=== PATIENT | male | born 1980 | race Caucasian/White ===

== ENCOUNTER 2019-08-30 16:36 | Emergency (ER) | payer BC, SELFPAY ==
[2019-08-30 16:54] VITALS: BP 152/97; PULSE 87; RESP 16; TEMP 37.3; O2SAT 99
--- NOTE | 2019-08-30 17:05 | ED.URI ---
HPI - URI/Sore Throat General Chief Complaint: Upper Respiratory Infection Stated Complaint: Difficulty breathing Time Seen by Provider: 08/30/19 17:06 Source: patient Mode of arrival: ambulatory Limitations: no limitations History of Present Illness HPI Narrative: Antwan Will is a 39 yo male with no PMH who started to have dry cough and mild wheezing on THurs, low grade temperature last 24 hours Related Data Home Medications Medication Instructions Recorded Confirmed esomeprazole magnesium [Nexium] 40 mg PO DAILY 08/30/19 08/30/19 Allergies Allergy/AdvReac Type Severity Reaction Status Date / Time No Known Allergies Allergy Verified 01/30/14 14:09 Review of Systems Review of Systems: Narrative: CONSTITUTIONAL: Denies fever, chills, sweats. EYES: Denies visual changes, redness, discharge. ENT: Denies rhinorrhea, congestion, sore throat, otalgia. CARDIOVASCULAR: Denies chest pain, palpitations, edema. RESPIRATORY: Denies dyspnea, has wheezing, dry cough GASTROINTESTINAL: Denies abdominal pain, nausea, vomiting, diarrhea. GENITOURINARY: Denies dysuria, hematuria, abnormal discharge SKIN: Denies rash or itching. NEUROLOGIC: Denies numbness, or focal weakness. PSYCHIATRIC: Denies anxiety or depression. [facility] Family History Family History Other Diabetes mellitus Social History Social History (Updated 08/30/19 @ 17:15 by Nicole Gandhi CNP) Social History: Has tried to quit smoking of the last few months and is down to 2 to 3 cigarettes a day Smoking packs per day: 0.1 Smoking cigarettes per day: 2.0 Smoking status: Current every day smoker Tobacco type: cigarettes Alcohol intake: current Comments At time of signature, I agree with nursing past medical, surgical, social and family history. There is no relevant family history pertinent to the presenting complaint. Exam Narrative: Exam Narrative: GENERAL: This is a well-nourished, well-developed patient, in mild distress. HEAD: normocephalic, atraumatic. EYES: . Sclera clear/white. Vision is grossly intact. EARS: External ears normal, auditory canals clear and without drainage, TMs normal without perforation. Hearing grossly intact. NOSE: External nose normal with mild nasal discharge, nares with redness, no rhinorrhea. THROAT: Mucous membranes moist, posterior pharynx erythema NECK: Neck supple, non-tender CARDIOVASCULAR: Regular rate and rhythm without murmurs, gallops, or rubs. RESPIRATORY: Clear to auscultation. Breath sounds equal bilaterally. No wheezes, rales, or rhonchi. GASTROINTESTINAL: Abdomen soft, non-tender, SKIN: warm, intact with no suspicious lesions or rash, good texture and turgor. NEURO: awake, alert, and oriented to person, place and time. There were no obvious focal neurologic abnormalities. Steady gait EXTREMITIES: Normal range of motion. BACK: Nontender without deformity or crepitance. . Course Course Emergency Course: Started on Z-Gómez, prednisone, codeine cough syrup-she historically gets this every year Vital Signs Vital signs: Vital Signs Temperature 99.2 F 08/30/19 16:54 Pulse Rate 87 08/30/19 16:54 Respiratory Rate 16 08/30/19 16:54 Blood Pressure 152/97 H 08/30/19 16:54 Pulse Oximetry 99 08/30/19 16:54 Temperature 99.2 F 08/30/19 16:54 Pulse Rate 87 08/30/19 16:54 Respiratory Rate 16 08/30/19 16:54 Blood Pressure 152/97 H 08/30/19 16:54 Pulse Oximetry 99 08/30/19 16:54 MDM - URI/Sore Throat Differential Diagnosis Differential diagnosis: Likely upper respiratory infection, sinusitis, viral infection, bronchitis and pharyngitis Discharge Plan Discharge Clinical Impression: Bronchitis Patient Disposition: Home, Self-Care Condition: Stable Instructions: Antibiotic Form, Acute Bronchitis (ED) Prescriptions: New prednisone 20 mg tablet 40 mg PO DAILY 5 Days Qty: 10 RF: 0 azith
== END 2019-08-30 17:23 | disposition home or self-care (01) ==
PROVIDERS: Emergency Provider Nurse Practitioner; PCP Family Medicine
DX: J40 Bronchitis, not specified as acute or chronic (principal); F17.210 Nicotine dependence, cigarettes, uncomplicated; K22.70 Barrett's esophagus without dysplasia; K21.9 Gastro-esophageal reflux disease without esophagitis; G54.0 Brachial plexus disorders
CPT/HCPCS: 99213; G0463

== ENCOUNTER → 2019-12-06 13:58 | Outpatient (CLI) | payer BC, SELFPAY ==
--- NOTE | ~2019-12-06 | XR_ITS ---
XR hand RT min 3V 12/06/2019 14:19 Indication: Right fifth finger injury Procedure: 3 views right hand Comparison: 05/22/2012 Findings: Osteopenia. Mild polyarticular osteoarthritis. No acute fracture or traumatic malalignment. No focal soft tissue abnormality. No radiopaque foreign bodies. Impression: 1: No acute fracture. Reviewed, dictated and finalized at location A. Impression: 1: No acute fracture.
--- NOTE | ~2019-12-06 | XR_ITS ---
EXAMINATION: XR chest 2V 12/06/2019 14:18 INDICATION: Tobacco use. PROCEDURE: 2 view chest COMPARISON: Comparison to multiple prior studies sequentially, with oldest reviewed study dated 01/14/2004. FINDINGS: The lungs are clear. The cardiomediastinal silhouette is within normal limits. There are no pleural effusions. There is no pneumothorax suspected. Chronic sclerotic lesion of the left fift h rib unchanged. IMPRESSION: 1: NO ACUTE CARDIOPULMONARY DISEASE. Reviewed, dictated and finalized at location A.
== END ==
PROVIDERS: PCP Emergency Medicine; Visit Provider Emergency Medicine
DX: S69.91XA Unspecified injury of right wrist, hand and finger(s), initial encounter (principal)
CPT/HCPCS: 71046; 73130

== ENCOUNTER 2020-09-10 05:55 | Observation (INO) | payer BC, SELFPAY ==
[2020-09-10] VITALS (17 sets, daily range): BP systolic 124–154; BP diastolic 72–101; PULSE 77–103; RESP 16–26; TEMP 36.4–36.7; O2SAT 98–100
--- NOTE | ~2020-09-10 | XR_ITS ---
XR chest 1V portable DATE: 09/10/2020 06:24 INDICATION: Postoperative chest pain TECHNIQUE: Portable upright AP chest on 09/10/2020 at 0625 hours COMPARISON: 12/06/2019 2 view chest FINDINGS: Normal heart size. No hilar or mediastinal enlargement. There is asymmetric increased density overlying the right upper lung compared to the left which may i ndicate infiltrate; however, there is some rotation of patient which might simulate infiltrate. Repea t PA and lateral views are recommended when possible. The lungs otherwise appear clear. Chronic blunting of the right costophrenic angle, stable since 12/06/2019. IMPRESSION: Increased density overlying right upper lung which may be due to infiltrate or possibly r esult of patient rotation; PA and lateral chest radiographs are recommended for more optimal evaluati on Reviewed, dictated and finalized at location A. IMPRESSION: Increased density overlying right upper lung which may be due to in filtrate or possibly result of patient rotation; PA and lateral chest radiograp hs are recommended for more optimal evaluation
--- NOTE | ~2020-09-10 | CT_ITS ---
EXAMINATION: CTA chest PE protocol DATE: 09/10/2020 07:16 INDICATION: Chest pain. 4 weeks postoperative from thoracic outlet surgery. TECHNIQUE: Computed tomography angiography (CTA) of the chest was performed with 100 mL Omnipaque-350 intravenous contrast timed to evaluate the pulmonary arteries. Coronal maximum intensity projection 3D-reconstructions were created by the technologist. Automated exposure control and iterative reconst ruction technique were employed. Exam dose: 426.86 mGy-cm total exam DLP. COMPARISON: 09/10/2020 portable AP chest FINDINGS: There is diagnostic contrast enhancement of the pulmonary arteries and no evidence of pulmo nary embolism. No thoracic aortic aneurysm or dissection. No hilar or mediastinal mass lesion or lymphadenopathy. No pulmonary infiltrate or consolidation or pulmonary mass lesion is detected. Normal morphology of the adrenal glands. Small sliding hiatal hernia. IMPRESSION: No evidence of pulmonary embolism Reviewed, dictated and finalized at Location A. Reviewed, dictated and finalized at location A.
--- NOTE | 2020-09-10 06:06 | ECG_ITS ---
Measurements Intervals [place] Rate: 92 P: 76 IA: 149 QRS: 51 QRSD: 91 T: 76 QT: 339 QTc: 420 Interpretive Statements SINUS RHYTHM NORMAL ECG Electronically Signed On 09-10-2020 6:42:29 CDT by Vitor Santos D.O.
[2020-09-10 06:14] LABS: Basophils Absolute Auto 0.1 K/mm3 (0.0-0.1); Basophils Percent Auto 0.6 % (0.2-1.2); Eosinophils Absolute Auto 0.1 K/mm3 (0-0.3); Eosinophils Percent Auto 0.7 % (0-4.4); Hematocrit 44.8 % (42.0-52.0); Hemoglobin 14.6 g/dL (14.0-18.0); Immature Granulocyte Absolute 0.04 K/mm3 (0.00-0.031); Immature Granulocyte Percent A 0.3 % (0-0.5); Lymphocytes Absolute Auto 3.48 K/mm3 (0.9-3.2); Lymphocytes Percent Auto 26.7 % (18.3-44.2); Mean Corpuscular HGB Conc 32.6 g/dl (32-36); Mean Corpuscular Hemoglobin 28.2 pg (26-34); Mean Corpuscular Volume 86.5 fl (80-100); Mean Platelet Volume 9.1 fl (7.4-10.4); Monocytes Absolute Auto 0.8 K/mm3 (0.1-0.6); Neutrophils Absolute Auto 8.6 K/mm3 (1.3-6.7); Neutrophils Percent Auto 65.7 % (45.5-73.1); Platelet Count Result 335 k/mm3 (150-375); Red Blood Count 5.18 M/mm3 (4.6-6.20); Red Cell Distribution Width 14.5 % (11.5-14.5); White Blood Count 13.1 K/mm3 (4.5-10.0)
[2020-09-10 06:28] LABS: Alanine Aminotransferase 17 U/L (4-50); Albumin Level 4.8 g/dL (3.5-5.1); Alkaline Phosphatase 92 U/L (38-126); Anion Gap 9 mmol/L (8-16); Aspartate Amino Transferase 22 U/L (17-59); Bilirubin,Total 0.2 mg/dL (0.2-1.3); Blood Urea Nitrogen 11 mg/dL (9-20); Calcium 9.7 mg/dL (8.4-10.2); Carbon Dioxide 29 mmol/L (22-30); Chloride 101 mmol/L (98-107); Estimated CRCL calculation 103 ml/min; Estimated Glomerular Filt Rate > 60; Glucose 125 mg/dL (75-110); Potassium 3.8 mmol/L (3.4-5.0); Sodium 139 mmol/L (137-145)
--- NOTE | 2020-09-10 06:28 | ED.GENADULT ---
HPI - General Adult General Chief complaint: Chest Pain <Jeremiah Kaminski MD - Last Filed: 09/10/20 06:49> Stated complaint: Chest pain <Jeremiah Kaminski MD - Last Filed: 09/10/20 06:49> Time Seen by Provider: 09/10/20 06:28 <Jeremiah Kaminski MD - Last Filed: 09/10/20 06:49> History of Present Illness HPI narrative: Patient is a 40-year-old gentleman who presents the emergency department with chief complaint of chest discomfort. Patient reports he had recent surgery on his chest for thoracic outlet syndrome patient states that he started having kind of discomfortable feeling in his mid chest and reports he was comfortable strange sensation. Patient states that he has no prior history of heart disease states that he took some aspirin prior to arrival in the emergency department. Patient does report that he smokes cigarettes and is on any antihypertensives. Patient reports been several years since he last had a stress test. <Jeremiah Kaminski MD - Last Filed: 09/10/20 06:49> Related Data Home medications: Home Medications Medication Instructions Recorded Confirmed esomeprazole magnesium [Nexium] 40 mg PO DAILY 08/30/19 08/30/19 <Jeremiah Kaminski MD - Last Filed: 09/10/20 06:49> Allergies/adverse reactions: Allergies Allergy/AdvReac Type Severity Reaction Status Date / Time No Known Allergies Allergy Verified 09/10/20 05:56 <Jeremiah Kaminski MD - Last Filed: 09/10/20 06:49> Review of Systems Review of Systems: Narrative: A 10 system review of systems was completed on the patient and is negative except for what is stated in the HPI. Nursing and ancillary documentation was reviewed. <Jeremiah Kaminski MD - Last Filed: 09/10/20 06:49> [facility] Family History Family History: Family History Other Diabetes mellitus <Jeremiah Kaminski MD - Last Filed: 09/10/20 06:49> Social History Social History: Social History (Updated 08/30/19 @ 17:15 by Nicole Gandhi CNP) Social History: Has tried to quit smoking of the last few months and is down to 2 to 3 cigarettes a day Smoking packs per day: 0.1 Smoking cigarettes per day: 2.0 Smoking status: Current every day smoker Tobacco type: cigarettes Alcohol intake: current <Jeremiah Kaminski MD - Last Filed: 09/10/20 06:49> Comments Past medical history significant for hypertension Surgical history of thoracic outlet syndrome surgery Social history patient smokes cigarettes <Jeremiah Kaminski MD - Last Filed: 09/10/20 06:49> Exam Narrative: Exam Narrative: GENERAL: Well-appearing, well-nourished, and in no acute distress. HEAD: Normocephalic, atraumatic. EYES: PERRLA and EOMI. ENT: Nares clear, no rhinorrhea or epistaxis. Mucous membranes moist. NECK: Supple. CHEST: Clear to auscultation. No respiratory distress. HEART: Regular rate and rhythm. No murmur heard. Normal peripheral pulses. ABDOMEN: Soft, nontender, nondistended, normal active bowel sounds. EXTREMITIES: Normal range of motion. No edema. SKIN: Warm, dry, no rash. NEURO: No focal deficits. Alert and oriented x3. PSYCH: Normal mood and affect. <Jeremiah Kaminski MD - Last Filed: 09/10/20 06:49> Course Course Emergency Course: Normal sinus rhythm rate of [address] elevation or ST depression present on EKG <Jeremiah Kaminski MD - Last Filed: 09/10/20 06:49> Care turned over to myself at shift change seen by myself agrees initial H&P patient had left-sided chest pressure this morning resolved with nitroglycerin. Recent history of thoracic outlet syndrome history of hypertension and tobacco use Discussed Dr. Ricks presentation work-up agrees with admission at this time Discussed with patient and family results of workup and diagnosis. Discussed need for admission. Patient and fa
[2020-09-10 06:40] LABS: Troponin I < 0.012 ng/mL (0.000-0.034)
[2020-09-10] MEDS: NITROGLYCERIN SL 0.4 MG TABLET SUBLINGUAL (06:43)
[2020-09-10 08:35] LABS: Cholesterol 237 mg/dL (0-200); HDL Direct 35 mg/dL; Triglycerides 199 mg/dL (<150)
[2020-09-10] MEDS: ASPIRIN 81 MG CHEWABLE TABLET 324 MG PO (08:43)
[2020-09-10 08:46] LABS: LDL Cholesterol Direct 167 mg/dL
[2020-09-10 10:26] LABS: Troponin I < 0.012 ng/mL (0.000-0.034)
--- NOTE | 2020-09-10 11:14 | ECG_ITS ---
Measurements Intervals [place] Rate: 69 P: 62 NV: 156 QRS: 44 QRSD: 98 T: 67 QT: 379 QTc: 407 Interpretive Statements SINUS RHYTHM ST ELEVATION IN ANT/INF LEADS- PROBABLY EARLY REPOLARIZATION BORDERLINE ECG Electronically Signed On 09-10-2020 12:21:23 CDT by Vitor Santos D.O.
[2020-09-10 12:32] LABS: Troponin I < 0.012 ng/mL (0.000-0.034)
--- NOTE | 2020-09-10 14:28 | PM.IMHP ---
H&P: HPI History of Present Illness Date/Time: 09/10/20 14:28 Chief Complaint: This is a 40-year-old man without any previous cardiac history who is referred here today by the emergency room as a chest Pain Center patient to rule out acute coronary syndrome. Patient states that he has been having symptoms of the sense of some tightness up in the region of his left shoulder, left clavicle and left side of his neck for the last 1-2 weeks after recent surgery to treat thoracic outlet syndrome. The patient provides a remarkable history of 8 previous operations both on the left than the right side for treating thoracic outlet syndrome. Apparently he redevelops scar tissue and has to have repeated operations. All the surgeries are done by the vascular surgery consult consultants at [facility]. He has never had a cardiac problem in the past he normally a is a reasonably active man with sustained walking or aerobic activity he does not trigger any chest pain pressure or heaviness he does not have any orthopnea PND or edema or sense of palpitations or syncope. He came to the emergency room with these symptoms this morning his electrocardiograms were done on 2 tracings both which are normal. He was admitted to the chest Pain Center where he has had 3-troponin levels sample. Very comfortable appearing man in room 6. In the chest Pain Center and offers no other history. He does have chronic hypertension as well. For which he takes PRANAV-inhibitor. Narrative: As above Review of Systems Constitutional: Constitutional: Reports no additional constitutional complaints Eyes: Eyes: Reports no additional eye complaints ENT: Reports system reviewed and no additional complaints, except as documented Cardiovascular: Cardiovascular: Reports as per HPI Respiratory: Respiratory: Reports no additional respiratory complaints Gastrointestinal: Gastrointestinal: Reports no additional gastrointestinal complaints Musculoskeletal: Musculoskeletal: Reports as per HPI Neurologic: Reports as per HPI Comments: Patient has chronic peripheral nerve dysfunction in the right upper extremity following thoracic outlet surgery, complicated by nerve injury in 2015 [facility] Family History Family History Other Diabetes mellitus Social History Social History (Updated 08/30/19 @ 17:15 by Nicole Gandhi CNP) Social History: Has tried to quit smoking of the last few months and is down to 2 to 3 cigarettes a day Smoking packs per day: 0.9 Smoking cigarettes per day: 18.0 Smoking status: Current every day smoker Tobacco type: cigarettes Alcohol intake: current Drinks per week: 6 Alcohol use details: 5-6 beers once a week on saturdays Substance use: never Substance use type: does not use Living arrangements: with family Gender identity (if verbalized by the patient): Male Spiritual care concerns: No Meds Home Medications and Allergies Home Medications Medication Instructions Recorded Confirmed Type esomeprazole magnesium [Nexium] 40 mg PO DAILY 08/30/19 09/10/20 History ibuprofen 600 mg PO TID 09/10/20 09/10/20 History lisinopril 10 mg PO DAILY 09/10/20 09/10/20 History methocarbamol 500 mg PO BID 09/10/20 09/10/20 History Allergies Allergy/AdvReac Type Severity Reaction Status Date / Time No Known Allergies Allergy Verified 09/10/20 05:56 Vital Signs Vital Signs - 24 hr 09/10/20 06:02 09/10/20 06:05 09/10/20 06:06 Temperature 36.4 C Pulse Rate 93 93 92 Respiratory Rate 16 19 17 Blood Pressure 143/86 H 148/97 H Pulse Oximetry 98 09/10/20 06:15 09/10/20 06:16 09/10/20 06:30 Temperature Pulse Rate 93 97 92 Respiratory Rate 18 20 21 H Blood Pressure 136/100 H Pulse Oximetry 09/10/20 06:31 09/10/20 06:45 09/10/20 06:46 Temperature Pulse Rate 94 101 H 103 H Respiratory Rate 21 H 23 H 26 H Blood Pressure 139/101 H 124/89 P
--- NOTE | 2020-09-10 15:13 | PC.NURSE ---
Pt. and spouse given discharge education following [facility] admission. Pt. and spouse verbalize understanding of discharge education. Pt. denies chest pain upon departure. Pt. and spouse escorted to exit in no apparent distress.
== END 2020-09-10 15:14 | disposition home or self-care (01) ==
LOC: ANHED 07:04 → ANHCPC 08:23
PROVIDERS: Emergency Medicine; Admitting Provider Specialist; Emergency Provider Emergency Medicine; PCP Emergency Medicine; Visit Provider Specialist
DX: R07.89 Other chest pain (principal); F17.210 Nicotine dependence, cigarettes, uncomplicated; M25.512 Pain in left shoulder
CPT/HCPCS: 36415; 71045; 71275; 80053; 80061; 84484; 85025; 93005; 99285; A9270; G0378; G0379; Q9967

== ENCOUNTER 2021-01-13 11:20 | Observation (INO) | payer MEDICARE, MEDICAID, SELFPAY ==
--- NOTE | 2021-01-13 | ECHO_ITS ---
Patient Info Name: Antwan Will Age: 40 years : 1980 Gender: Male Ht: 72 in Wt: 189 lbs BSA: 2.10 m2 HR: 65 bpm BP: 140 / 81 mmHg Heart Rhythm: Sinus Rhythm Technical Quality: Good Exam Date: 01/13/2021 4:30 PM Exam Location: [facility] Pulmonary Exam Room: ER Patient Status: Emergency Admit Date: 01/13/2021 Staff Ordering Physician: Leigha Giron Licensed Aircraft Maintenance Engineer: Cristiane Roberts RDCS Attending Provider: Natali Bridges MD Referring Physician: Mack DUNN; Exam Type: CA echo doppler color flow Study Info Indications - ASSESS EF Complete two-dimensional, color flow and Doppler transthoracic echocardiogram is performed. Summary 1. Complete two-dimensional, color flow and Doppler transthoracic echocardiogram is performed. 2. Left ventricular chamber size, wall thickness, systolic and diastolic function are normal with no regional wall motion abnormalities with an estimated ejection fraction of 60-65%. 3. No significant valve disease. 4. Normal sinus rhythm. Left Ventricle Left ventricular chamber dimension is normal. Left ventricular systolic function is normal, estimated at 60-65%. There is no increased left ventricular wall thickness. Left ventricular septal wall motion is normal. The left ventricular diastolic function is normal. Global longitudinal strain is normal at -18 %. Left ventricular chamber size, wall thickness, systolic and diastolic function are normal with no regional wall motion abnormalities with an estimated ejection fraction of 60-65%. Right Ventricle Right ventricular chamber dimension is normal. Right ventricular systolic function is normal. Left Atria Left atrial chamber dimension is normal. Right Atria Right atrial chamber dimension is normal. Aortic Valve The aortic valve is trileaflet. There is no aortic valve sclerosis. There is no aortic valve stenosis. There is no aortic valve regurgitation. Pulmonic Valve The pulmonic valve is normal. There is no pulmonic valve stenosis. There is no pulmonic regurgitation. Mitral Valve The mitral valve has normal leaflets. There is no mitral valve stenosis. There is no mitral valve regurgitation. Tricuspid Valve The tricuspid valve leaflets are normal. There is no significant tricuspid valve stenosis. There is trace tricuspid valve regurgitation. No pulmonary hypertension, estimated pulmonary arterial systolic pressure is Empty. Pericardium/Pleural The pericardium appears normal. There is no pericardial effusion. Inferior Vena Cava Normal inferior vena cava with >50% collapse upon inspiration consistent with Empty right atrial pressure, Empty. Aorta The aortic root size at the sinus of Valsalva is normal. The prox ascending aorta size is normal. Left Ventricular Outflow Tract Name Value Normal LVOT 2D LVOT Diameter 2.0 cm LVOT Doppler LVOT Peak Gradient 6 mmHg LVOT Mean Gradient 3 mmHg LVOT VTI 25 cm LVOT VTI/AV VTI Ratio 0.9
--- NOTE | ~2021-01-13 | CT_ITS ---
EXAMINATION: CT BRAIN W/O DATE: 01/13/2021 11:41 INDICATION: Headache. Slurred speech. TECHNIQUE: Computed tomography (CT) of the head was performed without intravenous contrast. The dose- length product was 681.00 mGy-cm. Automated exposure control and iterative reconstruction technique w ere employed. COMPARISON: No prior studies for comparison. FINDINGS: Normal brain parenchymal volume for age. Normal mendez-white differentiation. No acute intrac ranial hemorrhage, infarction, mass or mass effect. No ventriculomegaly or midline shift. Midline sagittal images demonstrate a normal corpus callosum, c raniovertebral junction and sella turcica. Basilar cisterns are patent. Paranasal sinuses and mastoids are pneumatized. No depressed skull fractures. IMPRESSION: 1. No acute intracranial abnormality. Reviewed, dictated and finalized at location A.
--- NOTE | ~2021-01-13 | XR_ITS ---
EXAMINATION: XR chest 1V portable 01/13/2021 11:50 INDICATION: Transient alteration of awareness. PROCEDURE: AP portable chest COMPARISON: Comparison to multiple prior studies sequentially, with oldest reviewed study dated 01/13. FINDINGS: The lungs are clear. The cardiomediastinal silhouette is within normal limits. There are no pleural effusions. There is no pneumothorax suspected. Chronic blunting right lateral costophren ic recess. IMPRESSION: 1: NO ACUTE CARDIOPULMONARY DISEASE. Reviewed, dictated and finalized at location A.
--- NOTE | ~2021-01-13 | MR_ITS ---
EXAMINATION: MR brain/brain stem wo/w con EXAM DATE: 01/14/2021 08:52 INDICATION: Aphasia. Slurred speech. Left-sided headache. TECHNIQUE: Magnetic resonance imaging (MRI) of the brain/brain stem obtained without contrast. Sagit sheri T1, axial diffusion, gradient echo (T2*), T1, T2, FLAIR sequences obtained. Patient was then inj ected with 17 cc intravenous Multihance contrast. Axial and coronal postcontrast T1 weighted sequence s obtained. Comparison is made to prior examination from 10/19/2011. Correlation was made with head CT 01/13/2021. FINDINGS: A few nonspecific white matter hyperintensities within normal limits for patient's age. The re are no areas of restricted diffusion to suggest acute infarction. There is no acute hemorrhage se en on the T2*, a hemosiderin sensitive sequence. No intraparenchymal brain mass. The ventricles are normal in size. There are no extra-axial collections. Flow voids are seen in the cerebral arteries on the T2-weighted sequences consistent with their expected patency. The orbits are unremarkable. S oft tissue is unremarkable. IMPRESSION: 1. No acute intracranial findings. Reviewed, dictated and finalized at location D.
--- NOTE | ~2021-01-13 | US_ITS ---
EXAMINATION: US carotid duplex BI DATE: 01/13/2021 15:13 INDICATION: Aphasia. TECHNIQUE: Grayscale, color Doppler, and pulsed Doppler images of the cervical carotid arteries were obtained. The degree of vessel stenosis is placed in one of the following categories: normal, <50%, 5 0-69%, >=70% but less than near-occlusion, near-occlusion, or total occlusion. Note that percent sten osis relative to normal distal artery lumen diameter is indirectly measured from velocity measurement s as described by Ernst, et al. Radiology 2003; 229:340-346. COMPARISON: None. FINDINGS: RIGHT: The right common carotid artery (CCA) peak systolic velocity (PSV) is 96 cm/s. The right internal car otid artery (ICA) PSV is 75 cm/s. The right ICA end-diastolic velocity (EDV) is 33 cm/s. The right IC A/CCA PSV ratio is 0.8. Grayscale and color Doppler images yield an estimate of <50% diameter reducti on from plaque in the ICA. The external carotid artery (ECA) PSV is 123 cm/s. There is antegrade flow in the right vertebral artery. LEFT: The left CCA PSV is 90 cm/s. The left ICA PSV is 75 cm/s. The left ICA EDV is 15 cm/s. The left ICA/C CA PSV ratio is 0.8. Grayscale and color Doppler images yield an estimate of <50% diameter reduction from plaque in the ICA. The ECA PSV is 101 cm/s. There is antegrade flow in the left vertebral artery . IMPRESSION: 1. <50% stenosis from minimal plaque in the right internal carotid artery. 2. <50% stenosis from minimal plaque in the left internal carotid artery. Reviewed, dictated and finalized at location A.
[2021-01-13 11:21] VITALS: BP 148/71; PULSE 89; RESP 17; TEMP 36.7; O2SAT 100
--- NOTE | 2021-01-13 11:27 | ECG_ITS ---
Measurements Intervals [place] Rate: 87 P: 72 CA: 150 QRS: 57 QRSD: 90 T: 89 QT: 342 QTc: 413 Interpretive Statements SINUS RHYTHM BASELINE ARTIFACT- I, III, AVR, AVL NORMAL ECG Electronically Signed On 01-13-2021 12:04:37 CDT by Vitor Santos D.O.
[2021-01-13 11:31] VITALS: BP 140/81; PULSE 86; RESP 15; O2SAT 100
[2021-01-13 11:32] LABS: Glucose Point of Care 105 mg/dl (65-105)
[2021-01-13 11:41] LABS: Basophils Absolute Auto 0.1 K/mm3 (0.0-0.1); Basophils Percent Auto 0.8 % (0.2-1.2); Eosinophils Absolute Auto 0.1 K/mm3 (0-0.3); Eosinophils Percent Auto 0.9 % (0-4.4); Hematocrit 44.9 % (42.0-52.0); Hemoglobin 14.5 g/dL (14.0-18.0); Immature Granulocyte Absolute 0.05 K/mm3 (0.00-0.031); Immature Granulocyte Percent A 0.4 % (0-0.5); Lymphocytes Percent Auto 31.8 % (18.3-44.2); Mean Corpuscular HGB Conc 32.3 g/dl (32-36); Mean Corpuscular Hemoglobin 28.4 pg (26-34); Mean Corpuscular Volume 87.9 fl (80-100); Mean Platelet Volume 8.7 fl (7.4-10.4); Monocytes Absolute Auto 1.2 K/mm3 (0.1-0.6); Monocytes Percent Auto 9.4 % (2.6-8.5); Neutrophils Absolute Auto 6.9 K/mm3 (1.3-6.7); Neutrophils Percent Auto 56.7 % (45.5-73.1); Platelet Count Result 350 k/mm3 (150-375); Red Blood Count 5.11 M/mm3 (4.6-6.20); Red Cell Distribution Width 13.9 % (11.5-14.5); White Blood Count 12.3 K/mm3 (4.5-10.0)
[2021-01-13 11:52] LABS: INR 0.9; Prothrombin Time 12.4 Seconds (11.1-14.7)
[2021-01-13 11:53] LABS: Anion Gap 11 mmol/L (8-16); Blood Urea Nitrogen 13 mg/dL (9-20); Carbon Dioxide 27 mmol/L (22-30); Chloride 100 mmol/L (98-107); Estimated CRCL calculation 93 ml/min; Estimated Glomerular Filt Rate > 60; Glucose 83 mg/dL (65-110); Partial Thromboplastin Time 23.8 SECONDS (22.3-36.8); Potassium 3.7 mmol/L (3.4-5.0); Sodium 138 mmol/L (137-145)
[2021-01-13 12:05] LABS: Troponin I < 0.012 ng/mL (0.000-0.034)
--- NOTE | 2021-01-13 13:54 | ED.NEUROSD ---
HPI - Neuro Symptoms/Deficit General Chief Complaint: Neuro Symptoms/Deficit Stated Complaint: MICHAEL, slurred speech since 0200 Time Seen by Provider: 01/13/21 11:38 Source: patient Mode of arrival: ambulatory Limitations: no limitations History of Present Illness HPI Narrative: This is a 40 year old male who presents for evaluation of difficulty speaking. Patient states he woke up at 2 am this morning with left frontal headache. He also reports he had difficulty speaking . He was having trouble getting words out. His symptoms lasted for 1-2 days. He reports chronic right arm paralysis due to history of thoracic outlet syndrome and he also reports chronic paresthesia to both hands chronically. He denies any worsening weakness or numbness. He denies blurred vision. He also denies history of TIA or CVA. Related Data Home Medications Medication Instructions Recorded Confirmed lisinopril 10 mg PO DAILY 09/10/20 01/13/21 simvastatin 20 mg HS 01/13/21 01/13/21 Allergies Allergy/AdvReac Type Severity Reaction Status Date / Time ciprofloxacin Allergy Swelling Verified 01/13/21 17:55 of Lip/Tongue/Throat Latex, Natural Rubber AdvReac Rash Verified 01/13/21 17:55 Review of Systems Review of Systems: All systems reviewed & are unremarkable except as noted in HPI and below PMFSH Past Medical History Medical History (Updated 01/13/21 @ 19:22 by Natali Bridges MD) H/O thoracic outlet syndrome Thoracic outlet syndrome Surgical History Surgical History (Updated 01/13/21 @ 14:01 by Natali Bridges MD) History of thoracic surgery Family History Family History (Updated 01/13/21 @ 18:08 by Komal Graham RN) Mother Diabetes mellitus Heart problem Father Alzheimer's dementia Social History Social History (Updated 08/30/19 @ 17:15 by Nicole Gandhi CNP) Social History: Has tried to quit smoking of the last few months and is down to 2 to 3 cigarettes a day Smoking packs per day: 0.9 Smoking cigarettes per day: 18.0 Years smoked: 20 Smoking pack-years: 18.00 Smoking status: Current every day smoker Tobacco type: cigarettes Alcohol intake: current Drinks per week: 6 Alcohol use details: 5-6 beers once a week on saturdays Substance use: never Substance use type: does not use Spiritual care concerns: No Exam Const: General: no acute distress and alert Orientation/consciousness: patient oriented x3 HENMT: Head: normocephalic and atraumatic Face and sinus: normal facial exam, sinuses nontender and face symmetric Mouth: Yes Normal oral and palatal mucosa present, Yes lip normal, Yes oropharynx normal and Yes moist mucous membranes Eyes: Pupils: Equal, round and reactive pupils present EOM: EOMs intact bilaterally Chest: Chest palpation & inspection: normal inspection of the chest Resp: Effort & Inspection: normal respiratory effort and no retractions Auscultation: clear to auscultation bilaterally Cardio: Rate: regular rate Rhythm: regular rhythm Heart sounds: no murmurs GI: GI Palp: Yes Soft to palpation, No Tenderness to palpation present (GI) and No Guarding due to palpation present (GI) Auscultation: normal bowel sounds Neuro: General: patient oriented x3, moves all extremities, no meningeal signs and CN's II-XI intact bilaterally Speech: normal speech Gait exam (Neuro): Normal gait present Other: right hand with contractures, no arm drip Extrem: General: no pedal edema Psych: Mental Status: mental status grossly normal Affect: normal affect Course Reevaluation(s) Reevaluation #1: I discussed with patient plan to admit for MRI . HE agrees .He reports chronic leukocytosis Date: 01/13/21 Time: 13:30 Consultations Consultation #1: Dr. Hyman agrees to consult for evaluation of resolved aphasia. Date: 01/13/21 Time: 13:23 Consultation #2: I discussed case with DR. Slater who accepts patient for evaluation of TIA
--- NOTE | 2021-01-13 14:11 | PM.IMHP ---
H&P: HPI History of Present Illness Date/Time: 01/13/21 14:11 Chief Complaint: headache/difficulty speakiing Narrative: Antwan Will is a 40 year old man with a past medical history significant for thoracic outlet syndrome who has been admitted after presenting to the ED with complaints of headache and difficulty speaking. He tells me he woke up around 0200 with a headache in the left frontal region. He also tells me he had difficulty speaking. He knew what he wanted to say, but was unable to get his words out. He also reports associated weakness in both upper and lower extremities, along trouble with his vision for the past couple of days. He denies any history of HTN or CVA. ED evaluation included and revealed: CMP unremarkable; WBC 12.3. CT of head showed no acute process. Carotid dopplers were negative for stenosis; and CXR showed no acute diseae. Review of Systems Review of Systems: All systems reviewed & are unremarkable except as noted in HPI and below PMFSH Past Medical History Medical History (Updated 01/13/21 @ 16:03 by ROBBIE Currie) H/O thoracic outlet syndrome Thoracic outlet syndrome Surgical History Surgical History (Updated 01/13/21 @ 14:01 by Natali Bridges MD) History of thoracic surgery Family History Family History Other Diabetes mellitus Social History Social History (Updated 08/30/19 @ 17:15 by Nicole Gandhi CNP) Social History: Has tried to quit smoking of the last few months and is down to 2 to 3 cigarettes a day Smoking packs per day: 0.9 Smoking cigarettes per day: 18.0 Smoking status: Current every day smoker Tobacco type: cigarettes Alcohol intake: current Drinks per week: 6 Alcohol use details: 5-6 beers once a week on saturdays Substance use: never Substance use type: does not use Gender identity (if verbalized by the patient): Male Spiritual care concerns: No Meds Home Medications and Allergies Home Medications Medication Instructions Recorded Confirmed Type lisinopril 10 mg PO DAILY 09/10/20 09/10/20 History simvastatin mg 01/13/21 01/13/21 History Allergies Allergy/AdvReac Type Severity Reaction Status Date / Time ciprofloxacin Allergy Swelling Verified 01/13/21 11:31 of Lip/Tongue/Throat Latex, Natural Rubber AdvReac Rash Verified 01/13/21 11:31 Vital Signs Vital Signs - 24 hr 01/13/21 11:21 01/13/21 11:31 Temperature 36.7 C Pulse Rate 89 86 Respiratory Rate 17 15 Blood Pressure 148/71 H 140/81 Pulse Oximetry 100 100 Exam Const: General: no acute distress, alert and awake Orientation/consciousness: patient oriented x3 HENMT: Head: normocephalic and atraumatic Ears: hearing grossly normal bilaterally and external ears normal Face and sinus: face symmetric Mouth: Yes Normal oral and palatal mucosa present Eyes: Pupils: Equal, round and reactive pupils present EOM: EOMs intact bilaterally Neck: Neck: full ROM, trachea midline and no JVD Thyroid: thyroid normal Chest: Chest palpation & inspection: normal inspection of the chest Resp: Effort & Inspection: normal respiratory effort Auscultation: clear to auscultation bilaterally Cardio: Jugular venous distension: no JVD Rate: regular rate Rhythm: regular rhythm Heart sounds: S1 normal heart sound present and S2 normal heart sound present GI: Inspection: normal to inspection GI Palp: Yes Soft to palpation Percussion: Yes normal to percussion Auscultation: normal bowel sounds : General: Yes no CVA tenderness Back/Spine/Pelvis: Back: no CVA tenderness Skin: General skin exam: normal color Rashes: no rashes Neuro: General: patient oriented x3 Cranial nerves: Yes Equal, round and reactive pupils present Speech: normal speech Psych: Appearance: grossly normal Affect: normal affect Judgement: Good judgement present (Psych) H&P: Results Labs Labs: Amina
[2021-01-13 15:05] LABS: Anion Gap 10 mmol/L (8-16); Blood Urea Nitrogen 13 mg/dL (9-20); Calcium 9.6 mg/dL (8.4-10.2); Carbon Dioxide 22 mmol/L (22-30); Chloride 105 mmol/L (98-107); Estimated CRCL calculation 115 ml/min; Estimated Glomerular Filt Rate > 60; Glucose 90 mg/dL (65-110); Sodium 137 mmol/L (137-145)
[2021-01-13 15:17] LABS: Troponin I < 0.012 ng/mL (0.000-0.034)
[2021-01-13 17:30] VITALS: BP 111/76; PULSE 65; RESP 18; O2SAT 99
[2021-01-13 17:43] VITALS: BP 112/53; PULSE 72; RESP 16; TEMP 36.1; O2SAT 98
--- NOTE | 2021-01-13 17:43 | ADMGEN ---
This patient, Antwan Will, was admitted to Medical Room 242-01. Patient/family oriented to hospital policies and general routines including ID bracelet, bed and alarms, visiting hours, pain management, procedures, bathroom and other care routines, personal items, smoking policy, room service/diet, and visiting hours. Information on how to activate the Rapid Response Team has been discussed. Patient/Family are encouraged to report perceived risks to care and to ask questions if they do not understand what they are told or what they should do.
[2021-01-13 18:13] LABS: Add Urine Microscopic? NO; Appearance Urine Clear (Clear); Bilirubin Urine Negative (Negative); Blood Urine Negative (Negative); Color Urine Yellow (Yellow); Glucose Urine UA Negative (Negative); Ketones Urine Negative (Negative); Leukocyte Esterase Ur Negative LEU/UL (Negative); Nitrate Urine Negative (Negative); Protein Urine Negative (Negative); Specific Grav Ur 1.015 (1.001-1.035); Urobilinogen Urine Negative mg/dL (<2.0)
[2021-01-13 20:00] VITALS: PULSE 68
[2021-01-13 22:00] VITALS: BP 105/60; PULSE 65; RESP 21; TEMP 36.1; O2SAT 100
[2021-01-13] MEDS: SIMVASTATIN 20 MG TABLET PO (22:18)
[2021-01-14] VITALS: BP 122/67; PULSE 58; PULSE 61; RESP 20; TEMP 36.2; O2SAT 98
[2021-01-14 04:00] VITALS: BP 114/71; PULSE 57; PULSE 83; RESP 20; TEMP 36.1; O2SAT 98
[2021-01-14 05:46] LABS: Basophils Absolute Auto 0.1 K/mm3 (0.0-0.1); Basophils Percent Auto 0.9 % (0.2-1.2); Eosinophils Absolute Auto 0.2 K/mm3 (0-0.3); Eosinophils Percent Auto 2.1 % (0-4.4); Hematocrit 44.4 % (42.0-52.0); Hemoglobin 13.9 g/dL (14.0-18.0); Immature Granulocyte Absolute 0.04 K/mm3 (0.00-0.031); Immature Granulocyte Percent A 0.4 % (0-0.5); Lymphocytes Absolute Auto 3.67 K/mm3 (0.9-3.2); Lymphocytes Percent Auto 39.4 % (18.3-44.2); Mean Corpuscular HGB Conc 31.3 g/dl (32-36); Mean Corpuscular Hemoglobin 28.1 pg (26-34); Mean Corpuscular Volume 89.7 fl (80-100); Mean Platelet Volume 8.9 fl (7.4-10.4); Monocytes Absolute Auto 0.9 K/mm3 (0.1-0.6); Neutrophils Absolute Auto 4.4 K/mm3 (1.3-6.7); Neutrophils Percent Auto 47.2 % (45.5-73.1); Platelet Count Result 329 k/mm3 (150-375); Red Blood Count 4.95 M/mm3 (4.6-6.20); White Blood Count 9.3 K/mm3 (4.5-10.0)
[2021-01-14 05:59] LABS: Anion Gap 7 mmol/L (8-16); Blood Urea Nitrogen 13 mg/dL (9-20); Calcium 9.5 mg/dL (8.4-10.2); Carbon Dioxide 28 mmol/L (22-30); Chloride 102 mmol/L (98-107); Estimated CRCL calculation 103 ml/min; Estimated Glomerular Filt Rate > 60; Glucose 96 mg/dL (65-110); Potassium 4.3 mmol/L (3.4-5.0); Sodium 137 mmol/L (137-145)
[2021-01-14 06:00] VITALS: BP 114/71; PULSE 57; RESP 20; TEMP 36.1; O2SAT 98
[2021-01-14] MEDS: lisinopriL 10 MG TABLET PO (09:11)
[2021-01-14] MEDS: ASPIRIN 81 MG CHEWABLE TABLET PO (09:11)
[2021-01-14] MEDS: ENOXAPARIN 40 MG/0.4 ML SYRINGE SUB-Q (09:12)
[2021-01-14 12:00] VITALS: BP 128/74; PULSE 50; PULSE 55; RESP 18; TEMP 35.9; O2SAT 99
--- NOTE | 2021-01-14 12:01 | PCNSR ---
On 01/14/21, the student,Shantell Curiel, provided care and completed [facility] documentation on this patient. I have reviewed the student's documentation and agree with the findings.
--- NOTE | 2021-01-14 13:22 | PM.DS ---
DS: Admitting Diagnosis Admitting Diagnosis TIA DS: Discharge Diagnosis Discharge Diagnosis (1) TIA (transient ischemic attack): Code(s): G45.9 - Transient cerebral ischemic attack, unspecified Status: Acute Assessment and Plan: Expressive aphasia BUE, BLE weakness CT of head neg Carotid dopplers neg hydralazine prn Check lipid panel ECHO MRI Neuro consult Tele monitoring MRI showed no acute intracranial findings head CT showed no acute intracranial findings carotid Dopplers were less than 50% stenosed echo showed an EF of 60-65% chest x-ray was clear. (2) Leukocytosis: Code(s): D72.829 - Elevated white blood cell count, unspecified Status: Acute Assessment and Plan: WBC 12.2 No sign of infection Could be reactive Recheck CBC Monitor White blood cell count came down to 9.3 DS: Summary Hospital Course Hospital Course: Date of service: 01/14/2021 11:35 Mr. Will is a 40-year-old male with past medical history hypertension who came to the ED with complaints of headache and difficulty speaking. Stroke workup was performed and patient was noted to not have any abnormalities. Head CT showed no acute findings, an MRI showed no acute findings, chest was clear, carotids were less than 50% stenosis, echocardiogram was 60 65%. Upon examination patient was up walking around the room with no complaints saying that he was ready to go home. I did talk to the patient about smoking and educated him that he probably should consider quitting. I did ask him if he would like me to prescribe him the patch and gum upon discharge. He agreed to doing that and he also agreed to try to quit smoking. We also talked about following up with his primary care physician about possibility of starting him on Chantix. All labs were stable upon admission and remained stable at discharge. Vital signs also remained stable with a blood pressure of 128/74 a pulse of 50 respirations of 18 and temperature 35.9? C with an O2 sat 99% on room air. Patient denied chest pain, shortness of breath, syncope, falls, lightheadedness, dizziness, sweats fevers and chills. Time spent discussing smoking cessation with patient: more than 10 minutes Status at Discharge Functional status at discharge: independent ambulation Overall status at discharge: patient is back to baseline Time Spent with Patient Time attestation: Total time spent providing and/or coordinating discharge services: 37 minutes Time spent: Greater than 30 minutes Specific discharge activities: chart review, lab review, diagnostic testing, physical exam, documentation, education Exam Const: General: cooperative, healthy appearing, comfortable, no acute distress, well developed, alert, awake and Physically active Nutritional Appearance: average body habitus and well nourished Orientation/consciousness: oriented to person, oriented to place, oriented to time and patient oriented x3 Limitations: no limitations HENMT: Head: normal to inspection, No palpable skull fracture present, normocephalic and atraumatic Ears: hearing grossly normal bilaterally and external ears normal General nose exam: Normal external nose present, Normal nares present and Normal nasal mucous membranes and turbinates present Face and sinus: normal facial exam, sinuses nontender and face symmetric Mouth: Yes Normal oral and palatal mucosa present, Yes lip normal, Yes tongue normal and Yes moist mucous membranes Teeth and gingiva: poor dentition Eyes: General: appearance normal, both eyes and all related structures Visual Arrington: normal visual arrington by confrontation Alignment and Position: alignment normal Periorbital: periorbital findings normal Eyelids: eyelids normal Conjunctivae: conjunctivae normal Pupils: Equal, round and reactive pupils present EOM: EOMs intact bilaterally Neck: Neck: normal visual inspection, full ROM, trachea midline and no JVD Thyroid: thyroid normal Brielle
== END 2021-01-14 14:26 | disposition home or self-care (01) ==
LOC: ANHED 11:48 → ANH2MED 19:22 → ANH3MEDSUR 01-18 10:57
PROVIDERS: Nurse Practitioner Adult Health; Admitting Provider Hospitalist; Emergency Provider General Practice; PCP Emergency Medicine; Visit Provider Internal Medicine
DX: G45.9 Transient cerebral ischemic attack, unspecified (principal); R47.01 Aphasia; D72.829 Elevated white blood cell count, unspecified; G54.0 Brachial plexus disorders; R20.2 Paresthesia of skin; F17.210 Nicotine dependence, cigarettes, uncomplicated
CPT/HCPCS: 36415; 70450; 70553; 71045; 80048; 81003; 82948; 84484; 85025; 85610; 85730; 93005; 93306; 93880; 96372; 97165; 99285; A9270; A9577; G0378; J1650

== ENCOUNTER 2021-02-09 19:06 | Emergency (ER) | payer MEDICARE, MEDICAID, SELFPAY ==
--- NOTE | 2021-02-09 19:10 | ED.BACK ---
HPI - Back Pain/Injury General Chief Complaint: Back Pain/Injury Stated Complaint: lower back pain Time Seen by Provider: 02/09/21 19:36 Source: patient and RN notes reviewed Mode of arrival: ambulatory Limitations: no limitations History of Present Illness HPI Narrative: 40-year-old male presents concern for left low back pain that radiates to the left leg that started on Sunday. He denies any known injury or trauma. Reports he had a similar issue several years ago when he jumped down into a hole. He denies fever, body aches, chills, sweats, abdominal pain, loss of bowel or bladder function, perianal anesthesia, change in bowel habits. Reports he takes 800 mg ibuprofen 3 times daily for shoulder pain. He denies any other intervention for his back pain. MD elicited complaint: back pain Related Data Home Medications Medication Instructions Recorded Confirmed lisinopril 10 mg PO DAILY 09/10/20 01/13/21 simvastatin 20 mg HS 01/13/21 01/13/21 ergocalciferol (vitamin D2) 02/09/21 ibuprofen 02/09/21 pantoprazole PO 02/09/21 Allergies Allergy/AdvReac Type Severity Reaction Status Date / Time ciprofloxacin Allergy Swelling Verified 01/13/21 17:55 of Lip/Tongue/Throat Latex, Natural Rubber AdvReac Rash Verified 01/13/21 17:55 Review of Systems Review of Systems: CONSTITUTIONAL: Denies malaise, chills, sweats, or fever. CARDIOVASCULAR: Denies chest pain, palpitations, or edema. RESPIRATORY: Denies cough or dyspnea. GASTROINTESTINAL: Denies abdominal pain, nausea, vomiting, diarrhea, bloody, or mucous stools. GENITOURINARY: Denies dysuria or hematuria. SKIN: Denies bruising, redness, swelling, open skin MUSCULOSKELETAL: Reports left low back pain radiates left leg. Denies myalgia. NEUROLOGIC: Denies numbness, weakness, or headache. All systems reviewed & are unremarkable except as noted in HPI and below PMFSH Past Medical History Medical History (Updated 02/09/21 @ 19:41 by Marina Lepe NP) H/O thoracic outlet syndrome Thoracic outlet syndrome Surgical History Surgical History (Updated 01/13/21 @ 14:01 by Natali Bridges MD) History of thoracic surgery Family History Family History (Updated 01/13/21 @ 18:08 by Komal Graham RN) Mother Diabetes mellitus Heart problem Father Alzheimer's dementia Social History Social History (Updated 08/30/19 @ 17:15 by Nicole Gandhi CNP) Social History: Has tried to quit smoking of the last few months and is down to 2 to 3 cigarettes a day Smoking packs per day: 0.9 Smoking cigarettes per day: 18.0 Years smoked: 20 Smoking pack-years: 18.00 Smoking status: Current every day smoker Tobacco type: cigarettes Alcohol intake: current Drinks per week: 6 Alcohol use details: 5-6 beers once a week on saturdays Substance use: never Substance use type: does not use Spiritual care concerns: No Comments At time of signature, agree with nursing past medical, surgical, social and family history. There is no relevant family history pertinent to the presenting complaint Exam Narrative: GENERAL: Well-appearing, well-nourished, and in no acute distress. HEAD: Normocephalic, atraumatic. EYES: PERRLA and EOMI. NECK: Supple. No lymphadenopathy. CHEST: Clear to auscultation. No respiratory distress. HEART: Regular rate and rhythm. Distal pulses palpable and equal, cap refill <3 seconds ABDOMEN: Soft, nontender, nondistended, normal active bowel sounds, no palpable or pulsatile masses. No CVA tenderness MUSCULOSKELETAL: Normal range of motion and strength in all extremities; 5/5 strength with left hip flexion and extension. 5/5 strength with bilateral dorsiflexion and extension, knee flexion and extension, plantar flexion and extension. Normal sensation in dermatomal distributions with sensitivity to light touch and pain. No midline back tenderness to palpation. No paraspinal tenderness. Transfers from lying
[2021-02-09 19:18] VITALS: BP 117/77; PULSE 81; RESP 16; TEMP 36.6; O2SAT 100
== END 2021-02-09 19:45 | disposition home or self-care (01) ==
PROVIDERS: Emergency Provider Nurse Practitioner
DX: M54.5 Low back pain (principal); F17.210 Nicotine dependence, cigarettes, uncomplicated; G54.0 Brachial plexus disorders
CPT/HCPCS: 99213; G0463

== ENCOUNTER 2021-07-16 12:56 | Emergency (ER) | payer OTHER, SELFPAY ==
[2021-07-16 13:06] VITALS: BP 136/108; PULSE 90; RESP 16; TEMP 36.7; O2SAT 99
--- NOTE | 2021-07-16 13:13 | ED.SKABFB ---
HPI - Skin/Abscess/Foreign Bdy General Chief complaint: Skin/Abscess/Foreign Body Stated complaint: rash Time Seen by Provider: 07/16/21 13:23 Source: patient Mode of arrival: ambulatory Limitations: no limitations History of Present Illness HPI narrative: Antwan Will is a 41 yo male with a PMH of HTN, GERD, high cholesterol, and a smoker, who comes with allergic reaction to either his increase in Lyrica dosage or prednisone. He has taken prednisone before and had no reaction and has just started Lyrica within the last month and his dose been increased to 50 mg. Has large hives on back and abdomen that look like idiopathic urticaria, pruritic and large splotches on trunk Related Data Home Medications Medication Instructions Recorded Confirmed lisinopril 10 mg PO DAILY 09/10/20 01/13/21 simvastatin 20 mg HS 01/13/21 01/13/21 ergocalciferol (vitamin D2) 02/09/21 ibuprofen 02/09/21 pantoprazole PO 02/09/21 Allergies Allergy/AdvReac Type Severity Reaction Status Date / Time ciprofloxacin Allergy Swelling Verified 07/16/21 13:17 of Lip/Tongue/Throat Latex, Natural Rubber AdvReac Rash Verified 07/16/21 13:17 Review of Systems Review of Systems: CONSTITUTIONAL: Denies fever, chills, sweats. EYES: Denies visual changes, redness, discharge. ENT: Denies rhinorrhea, congestion, sore throat, otalgia. CARDIOVASCULAR: Denies chest pain, palpitations, edema. RESPIRATORY: Denies dyspnea, wheezing, cough GASTROINTESTINAL: Denies abdominal pain, nausea, vomiting, diarrhea. GENITOURINARY: Denies dysuria, hematuria, abnormal discharge SKIN: Pruritic rash that looks like hives on trunk NEUROLOGIC: Denies numbness, or focal weakness. PSYCHIATRIC: Denies anxiety or depression. [facility] Past Medical History Medical History H/O thoracic outlet syndrome High cholesterol Hypertension Thoracic outlet syndrome Surgical History Surgical History History of thoracic surgery Family History Family History Mother Diabetes mellitus Heart problem Father Alzheimer's dementia Social History Social History Social History: Has tried to quit smoking of the last few months and is down to 2 to 3 cigarettes a day Smoking packs per day: 0.9 Smoking cigarettes per day: 18.0 Years smoked: 20 Smoking pack-years: 18.00 Smoking status: Current every day smoker Tobacco type: cigarettes Alcohol intake: current Drinks per week: 6 Alcohol use details: 5-6 beers once a week on saturdays Substance use: never Substance use type: does not use Spiritual care concerns: No Comments At time of signature, I agree with nursing past medical, surgical, social and family history. There is no relevant family history pertinent to the presenting complaint. Exam Narrative: GENERAL: This is a well-nourished, well-developed patient, in mild distress. HEAD: normocephalic, atraumatic. EYES: Sclera clear/white. Vision is grossly intact. EARS: External ears normal, . Hearing grossly intact. NOSE: External nose normal without nasal discharge, nares without redness, no rhinorrhea. THROAT: Mucous membranes moist, NECK: Neck supple, CARDIOVASCULAR: Regular rate and rhythm without murmurs, gallops, or rubs. RESPIRATORY: Clear to auscultation. Breath sounds equal bilaterally. No wheezes, rales, or rhonchi. GASTROINTESTINAL: Abdomen soft, non-tender, SKIN: warm, intact with large splotchy hives on trunk which are pruritic, not warm NEURO: awake, alert, and oriented to person, place and time. There were no obvious focal neurologic abnormalities. Steady gait EXTREMITIES: Normal range of motion. BACK: Nontender without deformity Course Course Emergency Course: Patient comes in with what ap
[2021-07-16] MEDS: FAMOTIDINE 20 MG TABLET PO (13:37)
== END 2021-07-16 13:55 | disposition home or self-care (01) ==
PROVIDERS: Emergency Provider Nurse Practitioner; PCP Emergency Medicine
DX: L50.1 Idiopathic urticaria (principal); F17.210 Nicotine dependence, cigarettes, uncomplicated; E78.00 Pure hypercholesterolemia, unspecified; I10 Essential (primary) hypertension; G54.0 Brachial plexus disorders
CPT/HCPCS: 99213; A9270; G0463; J8540

== ENCOUNTER 2021-11-04 14:40 | Emergency (ER) | payer OTHER, SELFPAY ==
[2021-11-04 14:49] VITALS: BP 129/72; PULSE 88; RESP 16; TEMP 37.8; O2SAT 99
--- NOTE | 2021-11-04 15:10 | ED.URI ---
HPI - URI/Sore Throat General Chief Complaint: Upper Respiratory Infection Stated Complaint: Abdominal tenderness Time Seen by Provider: 11/04/21 15:10 Source: patient Mode of arrival: ambulatory Limitations: no limitations History of Present Illness HPI Narrative: 41-year-old male states that he could not sleep during the night due to body aches, chills. Woke up this morning and took his temp and was 102 Fahrenheit. States that he ate breakfast and noticed that his throat was sore. Denies cough, congestion. Does have a mild headache. Also reports right-sided abdominal pain for approximately 1 week. Reports he only has pain with movement, concerned he pulled a muscle. When laying flat or sitting still he has no abdominal pain. Denies nausea vomiting diarrhea. No change to bowel movements. Called his PCP regarding symptoms and was told to come to [facility]. States his PCP told him he would see him tomorrow. All systems reviewed and negative except as noted above. Related Data Home Medications Medication Instructions Recorded Confirmed lisinopril 10 mg PO DAILY 09/10/20 01/13/21 simvastatin 20 mg HS 01/13/21 01/13/21 ergocalciferol (vitamin D2) 02/09/21 ibuprofen 02/09/21 pantoprazole PO 02/09/21 Allergies Allergy/AdvReac Type Severity Reaction Status Date / Time ciprofloxacin Allergy Swelling Verified 07/16/21 13:17 of Lip/Tongue/Throat Latex, Natural Rubber AdvReac Rash Verified 07/16/21 13:17 Review of Systems Review of Systems: CONSTITUTIONAL: Reports fever, chills, or sweats. EYES: Denies visual changes, redness, or discharge. ENT: Denies rhinorrhea, congestion. Reports sore throat. Denies otalgia. CARDIOVASCULAR: Denies chest pain, palpitations, or edema. RESPIRATORY: Denies cough or dyspnea. GASTROINTESTINAL: Reports abdominal pain. Denies nausea, vomiting, or diarrhea. GENITOURINARY: Denies dysuria or hematuria. SKIN: Denies rash or itching. MUSCULOSKELETAL: Denies back pain, joint pain, or myalgia. NEUROLOGIC: Denies headache, numbness, or weakness. PSYCHIATRIC: Denies anxiety or depression. All other systems reviewed are negative, except as documented in HPI. [facility] Past Medical History Medical History H/O thoracic outlet syndrome High cholesterol Hypertension Thoracic outlet syndrome Surgical History Surgical History History of thoracic surgery Family History Family History Mother Diabetes mellitus Heart problem Father Alzheimer's dementia Social History Social History Social History: Has tried to quit smoking of the last few months and is down to 2 to 3 cigarettes a day Smoking packs per day: 0.9 Smoking cigarettes per day: 18.0 Years smoked: 20 Smoking pack-years: 18.00 Smoking status: Current every day smoker Tobacco type: cigarettes Alcohol intake: current Drinks per week: 6 Alcohol use details: 5-6 beers once a week on saturdays Substance use: never Substance use type: does not use Spiritual care concerns: No Comments At time of signature, agree with nursing past medical, surgical, social and family history. There is no relevant family history pertinent to the presenting complaint. Exam Narrative: GENERAL: This is a well-nourished, well-developed patient, in no apparent distress. HEAD: normocephalic, atraumatic. EYES: PERRL. Sclera clear/white. Vision is grossly intact. EARS: External ears normal, auditory canals clear and without drainage, TMs normal without perforation. Hearing grossly intact. NOSE: External nose normal with no obvious nasal discharge, nares without redness, no rhinorrhea. THROAT: Mucous membranes moist, erythema to posterior pharynx. Tonsils 1+ bilaterally. No exudates. NECK:
== END 2021-11-04 15:23 | disposition home or self-care (01) ==
PROVIDERS: Emergency Provider Nurse Practitioner Family; PCP Emergency Medicine
DX: J02.0 Streptococcal pharyngitis (principal); R10.9 Unspecified abdominal pain; F17.210 Nicotine dependence, cigarettes, uncomplicated; E78.00 Pure hypercholesterolemia, unspecified; I10 Essential (primary) hypertension
CPT/HCPCS: 87880; 99213; G0463

== ENCOUNTER 2021-11-04 19:24 | Emergency (ER) | payer OTHER, SELFPAY ==
[2021-11-04 19:31] VITALS: BP 134/73; PULSE 100; RESP 20; TEMP 39.4; O2SAT 97
--- NOTE | 2021-11-04 20:00 | ED.FEVER ---
HPI - Fever General Chief Complaint: Fever Stated Complaint: SORE THROAT Time Seen by Provider: 11/04/21 19:31 Source: patient and EMS Mode of arrival: EMS Limitations: no limitations History of Present Illness HPI Narrative: THis is a 41 year old male who presents from home via EMS for fever. Patient started having sore throat and fever this morning. He was evaluated a express care a few hours ago. He was diagnosed with strep pharyngitis and he was prescribed antibiotics. Patient has not started taking the antibiotics. His family states he seemed incoherent and he had a fever again. EMS reports patient was alert and oriented x 3. PAtient is alert and oriented x 3 in ER. He states he took motrin just prior to coming to ER. HE took tylenol this morning. He reports sore that that is worse with eating certain things. He denies nausea and vomiting. HE had diarrhea earlier today. He denies abdominal pain now as well. He states he feels fine. Related Data Home Medications Medication Instructions Recorded Confirmed lisinopril 10 mg PO DAILY 09/10/20 01/13/21 simvastatin 20 mg HS 01/13/21 01/13/21 ergocalciferol (vitamin D2) 02/09/21 ibuprofen 02/09/21 pantoprazole PO 02/09/21 Allergies Allergy/AdvReac Type Severity Reaction Status Date / Time ciprofloxacin AdvReac Swelling Verified 11/04/21 19:37 of Lip/Tongue/Throat Latex, Natural Rubber AdvReac Rash Verified 07/16/21 13:17 Review of Systems Review of Systems: No All systems reviewed & are unremarkable except as noted in HPI and below Constitutional: Constitutional: Reports chills and Reports fever(s) ENT: Reports sore throat Cardiovascular: Cardiovascular: Denies chest pain Respiratory: Respiratory: Denies cough and Denies dyspnea Gastrointestinal: Gastrointestinal: Denies abdominal pain, Reports diarrhea, Denies nausea and Denies vomiting Genitourinary: Genitourinary: Denies hematuria PMFSH Past Medical History Medical History H/O thoracic outlet syndrome High cholesterol Hypertension Thoracic outlet syndrome Surgical History Surgical History History of thoracic surgery Family History Family History Mother Diabetes mellitus Heart problem Father Alzheimer's dementia Social History Social History Social History: Has tried to quit smoking of the last few months and is down to 2 to 3 cigarettes a day Smoking packs per day: 0.9 Smoking cigarettes per day: 18.0 Years smoked: 20 Smoking pack-years: 18.00 Smoking status: Current every day smoker Tobacco type: cigarettes Alcohol intake: current Drinks per week: 6 Alcohol use details: 5-6 beers once a week on saturdays Substance use: never Substance use type: does not use Spiritual care concerns: No Exam Const: General: no acute distress and alert Orientation/consciousness: patient oriented x3 HENMT: Head: normocephalic and atraumatic Face and sinus: sinuses nontender and face symmetric Mouth: Yes lip normal Throat: uvula midline, abnormal tonsil bilateral erythema; no hypertrophy and no uvular edema Eyes: EOM: EOMs intact bilaterally Chest: Chest palpation & inspection: normal inspection of the chest Resp: Effort & Inspection: normal respiratory effort and no retractions Auscultation: clear to auscultation bilaterally Cardio: Rate: regular rate Rhythm: regular rhythm Heart sounds: no murmurs GI: GI Palp: Yes Soft to palpation, No Tenderness to palpation present (GI), No Guarding due to palpation present (GI) and No Rigid due to palpation Auscultation: normal bowel sounds Skin: General skin exam: normal color Rashes: no rashes Neuro: General: patient oriented x3 and CN's II-XI intact bilaterally
[2021-11-04] MEDS: ACETAMINOPHEN 500 MG TABLET 1000 MG PO (20:07)
[2021-11-04 21:01] VITALS: TEMP 36.9
[2021-11-04 21:46] LABS: SARS-CoV-2 RNA PCR Negative
== END 2021-11-04 21:55 | disposition home or self-care (01) ==
PROVIDERS: Emergency Provider General Practice; PCP Emergency Medicine
DX: J02.0 Streptococcal pharyngitis (principal); Z20.822 Contact with and (suspected) exposure to COVID-19; E78.00 Pure hypercholesterolemia, unspecified; I10 Essential (primary) hypertension; F17.210 Nicotine dependence, cigarettes, uncomplicated
CPT/HCPCS: 87880; 96372; 99284; A9270; C9803; J0558; J1100; U0003; U0005

== ENCOUNTER 2022-05-08 10:54 | Emergency (ER) | payer OTHER, SELFPAY ==
[2022-05-08 11:15] VITALS: BP 104/84; PULSE 75; RESP 18; TEMP 35.6; O2SAT 100
--- NOTE | 2022-05-08 11:21 | ED.URI ---
HPI - URI/Sore Throat General Chief Complaint: Upper Respiratory Infection Stated Complaint: Cough Time Seen by Provider: 05/08/22 11:26 Source: patient, RN notes reviewed and old records reviewed Mode of arrival: ambulatory Limitations: no limitations History of Present Illness HPI Narrative: 42-year-old male presents to the [facility] with complaints of a cough, fatigue and feeling feverish. Patient states it has been going on for over week but last night got worse. Denies chest pain. Denies abdominal pain nausea or vomiting. Related Data Home Medications Medication Instructions Recorded Confirmed lisinopril 10 mg tablet 10 mg PO DAILY 09/10/20 05/08/22 simvastatin 20 mg tablet 20 mg HS 01/13/21 05/08/22 ergocalciferol (vitamin D2) 1,250 1,250 mcg DIRECTED 02/09/21 05/08/22 mcg (50,000 unit) capsule ibuprofen 600 mg tablet 600 mg DIRECTED 02/09/21 05/08/22 pantoprazole 40 mg tablet,delayed 40 mg PO DIRECTED 02/09/21 05/08/22 release Allergies Allergy/AdvReac Type Severity Reaction Status Date / Time ciprofloxacin AdvReac Swelling Verified 11/04/21 19:37 of Lip/Tongue/Throat Latex, Natural Rubber AdvReac Rash Verified 07/16/21 13:17 Review of Systems Review of Systems: All systems reviewed & are unremarkable except as noted in HPI and below Constitutional: Constitutional: Reports as per HPI, Denies chills and Reports fever(s) Eyes: Eyes: Reports no additional eye complaints ENT: Reports system reviewed and no additional complaints, except as documented Cardiovascular: Cardiovascular: Reports no additional cardiovascular complaints Respiratory: Respiratory: Reports as per HPI, Reports cough and Reports wheezing Gastrointestinal: Gastrointestinal: Reports no additional gastrointestinal complaints Musculoskeletal: Musculoskeletal: Reports no additional musculoskeletal complaints Integumentary/Breasts: Skin/Breast: Reports system reviewed and no additional complaints, except as docu Neurologic: Reports system reviewed and no additional complaints, except as documented Psychiatric: Psychiatric: Reports no additional psychiatric complaints Allergic/Immunologic: Allergic/Immunologic: Reports no additional allergic/immunologic complaints PMFSH Past Medical History Medical History H/O thoracic outlet syndrome High cholesterol Hypertension Thoracic outlet syndrome Surgical History Surgical History History of thoracic surgery Family History Family History Mother Diabetes mellitus Heart problem Father Alzheimer's dementia Social History Social History Social History: Has tried to quit smoking of the last few months and is down to 2 to 3 cigarettes a day Smoking packs per day: 0.9 Smoking cigarettes per day: 18.0 Years smoked: 20 Smoking pack-years: 18.00 Smoking status: Current every day smoker Tobacco type: cigarettes Alcohol intake: current Drinks per week: 6 Alcohol use details: 5-6 beers once a week on saturdays Substance use: never Substance use type: does not use Spiritual care concerns: No Comments At the time of my signature, I reviewed and agree with the nursing past medical, surgical, social, and family history. There is no relevant family history pertinent to the patient complaint. Exam Const: General: healthy appearing, comfortable, no acute distress, well developed, alert and well nourished Nutritional Appearance: well nourished Orientation/consciousness: patient oriented x3 Limitations: no limitations HENMT: Head: normal to inspection Ears: external ears normal, TM's normal bilaterally and EAC's normal Face/Nose/Sinus: Normal external nose present and Normal nares present Throat: posterior oroph
== END 2022-05-08 11:49 | disposition home or self-care (01) ==
PROVIDERS: Emergency Provider Nurse Practitioner; PCP Emergency Medicine
DX: J20.9 Acute bronchitis, unspecified (principal); E78.00 Pure hypercholesterolemia, unspecified; I10 Essential (primary) hypertension; F17.210 Nicotine dependence, cigarettes, uncomplicated
CPT/HCPCS: 99213; G0463

== ENCOUNTER 2022-07-21 17:33 | Emergency (ER) | payer OTHER, SELFPAY ==
--- NOTE | 2022-07-21 17:40 | ED.URI ---
HPI - URI/Sore Throat General Chief Complaint: Upper Respiratory Infection Stated Complaint: chest tight/sob Source: patient and RN notes reviewed Mode of arrival: ambulatory Limitations: no limitations History of Present Illness MD elicited complaint: cough and sore throat Related Data Home Medications Medication Instructions Recorded Confirmed lisinopril 10 mg tablet 10 mg PO DAILY 09/10/20 05/08/22 simvastatin 20 mg tablet 20 mg HS 01/13/21 05/08/22 ergocalciferol (vitamin D2) 1,250 1,250 mcg DIRECTED 02/09/21 05/08/22 mcg (50,000 unit) capsule ibuprofen 600 mg tablet 600 mg DIRECTED 02/09/21 05/08/22 pantoprazole 40 mg tablet,delayed 40 mg PO DIRECTED 02/09/21 05/08/22 release Allergies Allergy/AdvReac Type Severity Reaction Status Date / Time ciprofloxacin AdvReac Swelling Verified 11/04/21 19:37 of Lip/Tongue/Throat Latex, Natural Rubber AdvReac Rash Verified 07/16/21 13:17 Review of Systems Review of Systems: CONSTITUTIONAL: Denies malaise, chills, sweats, or fever. EYES: Denies visual changes, redness, or discharge. ENT: Reports rhinorrhea, congestion, sinus pain, otalgia and sore throat. CARDIOVASCULAR: Denies chest pain, palpitations, or edema. RESPIRATORY: Reports cough. Denies dyspnea. GASTROINTESTINAL: Denies abdominal pain, nausea, vomiting, diarrhea SKIN: Denies rash or itching. MUSCULOSKELETAL: Denies myalgia. NEUROLOGIC: Denies headache. All systems reviewed & are unremarkable except as noted in HPI and below PMFSH Past Medical History Medical History H/O thoracic outlet syndrome High cholesterol Hypertension Thoracic outlet syndrome Surgical History Surgical History History of thoracic surgery Family History Family History Mother Diabetes mellitus Heart problem Father Alzheimer's dementia Social History Social History Social History: Has tried to quit smoking of the last few months and is down to 2 to 3 cigarettes a day Smoking packs per day: 0.9 Smoking cigarettes per day: 18.0 Years smoked: 20 Smoking pack-years: 18.00 Smoking status: Current every day smoker Tobacco type: cigarettes Alcohol intake: current Drinks per week: 6 Alcohol use details: 5-6 beers once a week on saturdays Substance use: never Substance use type: does not use Living arrangements: with family Spiritual care concerns: No Comments At time of signature, agree with nursing past medical, surgical, social and family history. There is no relevant family history pertinent to the presenting complaint Exam Narrative: GENERAL: Well-appearing, well-nourished, and in no acute distress. HEAD: Normocephalic EYES: PERRLA, conjunctivae clear ENT: Nares clear, turbinates edematous and erythematous, clear discharge. Mucous membranes moist. TM pearly mendez with dull light reflex bilaterally; no tragal tenderness. Oropharynx not erythematous without lesions. Tonsils not enlarged and without exudate, no drooling, no hoarseness, no trismus, uvula midline. NECK: Supple. No lymphadenopathy CHEST: Clear to auscultation, breath sounds equal. No wheezing, rhonchi, rales, or stridor. No respiratory distress, speaks in full sentences. HEART: Regular rate and rhythm. No murmur heard. SKIN: Warm, dry, no rash. NEURO: Alert and oriented x3. PSYCH: Normal mood and affect Course Course Emergency Course: Patient is aware of diagnosis, understands and agrees to treatment plan. Anticipatory guidance given. Patient agrees to follow-up as directed and is aware of reasons to seek care at the emergency department. Portions of this record may have been created with voice recognition software Level of Care: Express Care Visit Vital Signs Vital signs: Rev
[2022-07-21 17:42] VITALS: BP 143/89; PULSE 103; RESP 12; TEMP 36.9; O2SAT 97
--- NOTE | 2022-07-21 17:49 | ECG_ITS ---
Measurements Intervals [place] Rate: 105 P: 72 NH: 130 QRS: 10 QRSD: 86 T: -54 QT: 314 QTc: 416 Interpretive Statements SINUS TACHYCARDIA INFERIOR MYOCARDIAL INFARCTION , PROBABLY RECENT [40+ ms Q WAVE AND/OR ST/T ABNORMALITY IN II/aVF] ACUTE NC ABNORMAL ECG COMPARED TO ECG 01/13/2021 11:31:37 SINUS TACHYCARDIA NOW PRESENT MYOCARDIAL INFARCT FINDING NOW PRESENT Electronically Signed On 07-22-2022 12:46:32 [employer]ESS SALES CONSULTANT by Clemente Tee M.D.
--- NOTE | 2022-07-21 18:09 | ED.CHESTPAIN ---
HPI - Chest Pain General Chief Complaint: Chest Pain Stated Complaint: chest tight/sob Time Seen by Provider: 07/21/22 17:59 Mode of arrival: ambulatory Limitations: no limitations History of Present Illness HPI narrative: 42-year-old male presents concern for chest tightness. He reports he had indigestion last night began having left and right-sided chest tightness. Reports today he continues to have the chest tightness particularly on the right. He reports he took aspirin this morning. He denies any history of cardiac or respiratory problems. Reports a history of a TIA. He reports history of indigestion MD complaint: chest pain Related Data Home Medications Medication Instructions Recorded Confirmed lisinopril 10 mg tablet 10 mg PO DAILY 09/10/20 05/08/22 simvastatin 20 mg tablet 20 mg HS 01/13/21 05/08/22 esomeprazole magnesium 40 mg 40 mg PO DAILY 07/21/22 07/21/22 capsule,delayed release (Nexium) pregabalin 25 mg capsule 25 mg TID 07/21/22 07/21/22 Allergies Allergy/AdvReac Type Severity Reaction Status Date / Time ciprofloxacin AdvReac Swelling Verified 07/21/22 17:43 of Lip/Tongue/Throat Latex, Natural Rubber AdvReac Rash Verified 07/21/22 17:43 Review of Systems Review of Systems: CONSTITUTIONAL: Denies malaise, chills, sweats, or fever. CARDIOVASCULAR: Reports chest pain RESPIRATORY: Denies cough or dyspnea. GASTROINTESTINAL: Denies abdominal pain, nausea, vomiting, diarrhea NEUROLOGIC: Denies numbness, weakness, or headache. All systems reviewed & are unremarkable except as noted in HPI and below PMFSH Past Medical History Medical History H/O thoracic outlet syndrome High cholesterol Hypertension Thoracic outlet syndrome Surgical History Surgical History History of thoracic surgery Family History Family History Mother Diabetes mellitus Heart problem Father Alzheimer's dementia Social History Social History Social History: Has tried to quit smoking of the last few months and is down to 2 to 3 cigarettes a day Smoking packs per day: 0.9 Smoking cigarettes per day: 18.0 Years smoked: 20 Smoking pack-years: 18.00 Smoking status: Current every day smoker Tobacco type: cigarettes Alcohol intake: current Drinks per week: 6 Alcohol use details: 5-6 beers once a week on saturdays Substance use: never Substance use type: does not use Living arrangements: with family Spiritual care concerns: No Comments At time of signature, agree with nursing past medical, surgical, social and family history. There is no relevant family history pertinent to the presenting complaint Exam Narrative: GENERAL: Well-appearing and in no acute distress. HEAD: Normocephalic EYES: PERRLA, sclera clear, and EOMI. ENT: Nares clear. Mucous membranes moist. NECK: Supple. CHEST: No respiratory distress. Clear to auscultation. No bony deformities, no asymmetry. Speaks in full sentences. HEART: Regular rate and rhythm. No murmur heard. Normal peripheral pulses. SKIN: Warm, dry, no visible rash. NEURO: Alert and oriented x3. PSYCH: Normal mood and affect Course Course Emergency Course: Patient is aware of, understands and agrees to be transferred to the emergency department via EMS. Portions of this record may have been created with voice recognition software Level of Care: Express Care Visit Vital Signs Vital signs: Vital Signs Temperature 98.5 F 07/21/22 17:42 Pulse Rate 103 H 07/21/22 17:42 Respiratory Rate 12 07/21/22 17:42 Blood Pressure 143/89 H 07/21/22 17:42 Pulse Oximetry 97 07/21/22 17:42 Oxygen Delivery Room Air 07/21/22 17:42 Temperature 98.5 F 07/21/22 17:42 Pulse Rate 103 H 07/21/22 17:42
== END 2022-07-21 18:02 | disposition short-term general hospital (02) ==
PROVIDERS: Emergency Provider Nurse Practitioner; PCP Emergency Medicine
DX: R07.9 Chest pain, unspecified (principal); I21.9 Acute myocardial infarction, unspecified; Z86.73 Personal history of transient ischemic attack (TIA), and cerebral infarction without residual deficits; E78.00 Pure hypercholesterolemia, unspecified; I10 Essential (primary) hypertension; G54.0 Brachial plexus disorders; F17.210 Nicotine dependence, cigarettes, uncomplicated
CPT/HCPCS: 93005; 99215; G0463

== ENCOUNTER 2022-07-21 18:24 | Inpatient (IN) | payer OTHER, SELFPAY ==
[2022-07-21] VITALS (13 sets, daily range): BP systolic 125–138; BP diastolic 74–89; PULSE 61–106; RESP 17–20; TEMP 37–37.5; O2SAT 96–100; BMI 27.8
--- NOTE | 2022-07-21 18:25 | ECG_ITS ---
Measurements Intervals [place] Rate: 75 P: 75 CT: 136 QRS: 25 QRSD: 89 T: -38 QT: 364 QTc: 407 Interpretive Statements SINUS RHYTHM WITH SINUS ARRHYTHMIA INFERIOR MYOCARDIAL INFARCTION [40+ ms Q WAVE AND/OR ST/T ABNORMALITY IN II/aVF], PROBABLY RECENT ACUTE DC ABNORMAL ECG COMPARED TO ECG 01/13/2021 11:31:37 SINUS ARRHYTHMIA NOW PRESENT MYOCARDIAL INFARCT FINDING NOW PRESENT Electronically Signed On 07-22-2022 12:46:24 MODEL TECHNICIAN by Clemente Tee M.D.
--- NOTE | 2022-07-21 18:30 | ED.CHESTPAIN ---
HPI - Chest Pain General Chief Complaint: Chest Pain Stated Complaint: stemi Time Seen by Provider: 07/21/22 18:25 History of Present Illness HPI narrative: Pt presents from [facility] with STEMI. Pt says he has been having right sided CP off and on since last night. Pt has no cardiac history. Pt says the spells last 5 minutes or so and resolve. Pt took took asa earlier and was given the two others in route with EMS. Pt says he has had 3 episodes of CP since last night including when he got the EKG at [facility]. Pt has almost no pain now. Related Data Home Medications Medication Instructions Recorded Confirmed lisinopril 10 mg tablet 10 mg PO DAILY 09/10/20 07/21/22 simvastatin 20 mg tablet 20 mg HS 01/13/21 07/21/22 esomeprazole magnesium 40 mg 40 mg PO DAILY 07/21/22 07/21/22 capsule,delayed release (Nexium) pregabalin 25 mg capsule 25 mg TID 07/21/22 07/21/22 Allergies Allergy/AdvReac Type Severity Reaction Status Date / Time ciprofloxacin AdvReac Swelling Verified 07/21/22 17:43 of Lip/Tongue/Throat Latex, Natural Rubber AdvReac Rash Verified 07/21/22 17:43 Review of Systems Review of Systems: All systems reviewed & are unremarkable except as noted in HPI and below PMFSH Past Medical History Medical History H/O thoracic outlet syndrome High cholesterol Hypertension Thoracic outlet syndrome Surgical History Surgical History History of thoracic surgery Family History Family History Mother Diabetes mellitus Heart problem Father Alzheimer's dementia Social History Social History Social History: Has tried to quit smoking of the last few months and is down to 2 to 3 cigarettes a day Smoking packs per day: 0.9 Smoking cigarettes per day: 18.0 Years smoked: 20 Smoking pack-years: 18.00 Smoking status: Current every day smoker Tobacco type: cigarettes Alcohol intake: current Drinks per week: 6 Alcohol use details: 5-6 beers once a week on saturdays Substance use: never Substance use type: does not use Living arrangements: with family Spiritual care concerns: No Exam Const: General: healthy appearing Nutritional Appearance: well nourished Orientation/consciousness: patient oriented x3 Limitations: no limitations Chest: Chest palpation & inspection: normal inspection of the chest Resp: Effort & Inspection: normal respiratory effort Auscultation: clear to auscultation bilaterally Cardio: Rate: regular rate Rhythm: regular rhythm GI: GI Palp: Yes Soft to palpation Auscultation: normal bowel sounds Skin: General skin exam: normal color Rashes: no rashes Wounds: no wounds Neuro: General: patient oriented x3 and moves all extremities Cranial nerves: Yes Nystagmus not present Speech: normal speech Extrem: General: normal to inspection and no clubbing, cyanosis or edema Psych: Mental Status: mental status grossly normal Affect: normal affect Attitude: cooperative Course Vital Signs Vital signs: Vital Signs Temperature 99.5 F 07/21/22 18:22 Pulse Rate 106 H 07/21/22 18:22 Respiratory Rate 20 07/21/22 18:22 Blood Pressure 126/89 07/21/22 18:22 Pulse Oximetry 99 07/21/22 18:22 Oxygen Delivery Room Air 07/21/22 18:22 Temperature 99.5 F 07/21/22 18:22 Pulse Rate 101 H 07/21/22 18:38 Respiratory Rate 17 07/21/22 18:38 Blood Pressure 126/89 07/21/22 18:22 Pulse Oximetry 100 07/21/22 18:38 Oxygen Delivery Room Air 07/21/22 18:22 MDM - Chest Pain MDM Narrative Medical decision making narrative: Pt presents form [facility] with STEMI, director of cath lab activated prior to arrival. Pt received asa in route and currently slight pain. Pt will go to director of cath lab as soon as they ar
[2022-07-21 18:35] LABS: Basophils Absolute Auto 0.1 K/mm3 (0.0-0.1); Basophils Percent Auto 0.4 % (0.2-1.2); Eosinophils Percent Auto 0.1 % (0-4.4); Hematocrit 48.7 % (42.0-52.0); Hemoglobin 15.5 g/dL (14.0-18.0); Immature Granulocyte Absolute 0.04 K/mm3 (0.00-0.031); Immature Granulocyte Percent A 0.2 % (0-0.5); Lymphocytes Absolute Auto 3.33 K/mm3 (0.9-3.2); Lymphocytes Percent Auto 20.3 % (18.3-44.2); Mean Corpuscular HGB Conc 31.8 g/dl (32-36); Mean Corpuscular Hemoglobin 26.7 pg (26-34); Mean Platelet Volume 8.9 fl (7.4-10.4); Monocytes Absolute Auto 1.5 K/mm3 (0.1-0.6); Monocytes Percent Auto 9.3 % (2.6-8.5); Neutrophils Absolute Auto 11.4 K/mm3 (1.3-6.7); Neutrophils Percent Auto 69.7 % (45.5-73.1); Platelet Count Result 366 k/mm3 (150-375); White Blood Count 16.4 K/mm3 (4.5-10.0)
--- NOTE | 2022-07-21 18:41 | PC.NURSE ---
1805 dr ward notified 180 [facility] 1814 Radio 1815 Over head paged 1819 [facility]ANJ[facility] eta 20min
[2022-07-21] MEDS: HEPARIN SODIUM 5,000 UNITS/ML VIAL 4000 UNITS IV PUSH (18:43)
[2022-07-21 18:44] LABS: INR 1.1; Prothrombin Time 13.3 Seconds (11.1-14.7)
[2022-07-21 18:45] LABS: Alanine Aminotransferase 26 U/L (6-50); Albumin Level 4.3 g/dL (3.5-5.1); Alkaline Phosphatase 124 U/L (38-126); Anion Gap 11 mmol/L (8-16); Aspartate Amino Transferase 86 U/L (17-59); Bilirubin,Total 0.6 mg/dL (0.2-1.3); Blood Urea Nitrogen 9 mg/dL (9-20); Calcium 9.1 mg/dL (8.4-10.2); Carbon Dioxide 26 mmol/L (22-30); Chloride 102 mmol/L (98-107); Estimated CRCL calculation 101 ml/min; Estimated Glomerular Filt Rate > 60; Glucose 101 mg/dL (65-110); Lipase 84 U/L (23-300); Partial Thromboplastin Time 25.6 SECONDS (22.3-36.8); Potassium 3.8 mmol/L (3.4-5.0); Sodium 139 mmol/L (137-145)
--- NOTE | 2022-07-21 20:13 | WPDCARDPROC ---
Cardiac Cath Procedure Note Date of procedure:: 07/21/22 Performing physician:: Sridhar Crawford MD Procedure Procedure note:: EMERGENT CARDIAC CATHETERIZATION AND PERCUTANEOUS CORONARY INTERVENTION REPORT DATE OF PROCEDURE: 07/21/2022 INDICATION FOR PROCEDURE: ACUTE CORONARY SYNDROME-INFERIOR ST-ELEVATION MYOCARDIAL INFARCTION BRIEF CLINICAL HISTORY: 42-year-old male with hypertension, dyslipidemia, family history of CAD, tobacco abuse. Patient denies any known prior cardiac history. He started having chest discomfort associated with shortness of breath about 12 hours ago which persisted through the day. He went to the Urgent Care, and was found to have ST segment elevation in the inferior leads. He was transferred to [facility] and cardiac catheterization lab was activated for primary PCI. At the time of evaluation in the [facility], patient had minimal discomfort. He was given aspirin and heparin bolus in the emergency room. PROCEDURES PERFORMED: 1. Left heart catheterization- Selective left and right coronary angiogram; left ventriculogram and hemodynamic assessment 2. Multivessel percutaneous coronary intervention- a) balloon angioplasty and stenting of totally occluded OM 2 branch using a 3.0 x 26 mm Biotronik sirolimus eluting stent with orthodoxy of MANDA 3 flow; b) balloon angioplasty and stenting of diffusely diseased proximal segment of OM1 branch using a 3.5 x 22 mm Biotronik sirolimus eluting stent; c) balloon angioplasty of occluded and diffusely disease right coronary artery 3. Deployment of Mynx vascular closure device 4. Moderate sedation-CPT code 24397 MODERATE SEDATION: Midazolam1 mg; fentanyl 25 mcg. Start time 1856 , Stop time 2000 ; Total [id number] time 64 minutes; Lia Adler RN was trained observer for moderate sedation. ACCESS SITE: Right common femoral artery PROCEDURE NOTE: patient was emergently brought to the cardiac catheterization lab and prepped and draped in a usual sterile manner. After local anesthesia with lidocaine, right common femoral artery access was taken with micropuncture needle followed by insertion of a 6 Venezuelan sheath. Selective left and right coronary angiogram was performed using 5 [place]an JL4 and JR4 Guide catheters respectively. Orthogonal views were taken. After completion of PCI, a 5 [place]an pigtail catheter was advanced in the LV cavity and was flushed with normal saline. LV pressure measurement was performed. After this, left ventriculogram was performed. The catheter was flushed again, and gradient across the aortic valve was measured on the pullback of the catheter. The angiographic findings and details of intervention are given below. FINDINGS: LEFT MAIN CORONARY: A large caliber vessel with minor irregularities, no significant focal stenosis. The vessel trifurcates into LAD, ramus intermedius and left circumflex branches. LEFT ANTERIOR DESCENDING ARTERY: The LAD is a medium to large caliber vessel in the proximal segment with mild diffuse disease; becomes a medium caliber vessel in the mid segment, tapers distally and reaches LV apex. Diagonal branch is a small to medium caliber vessel with minor irregularities. RAMUS INTERMEDIUS: A smaller caliber vessel with about 70% stenosis in the proximal segment. LEFT CIRCUMFLEX ARTERY: LCX is a large caliber vessel. It gives rise to medium to large caliber OM1 branch which has diffuse 60-70% Stenosis in the proximal segment. OM2 branch is totally occluded in the mid segment with diffuse disease. After PCI, the vessel is a medium to large caliber vessel. [id number] collaterals are seen. RIGHT CORONARY ARTERY: The right coronary artery is totally occluded in the proximal segment after its origin ( chronic versus subacute). After balloon angioplasty, the vessel is diffusely disease and gives rise to small to medium caliber PDA and PLV branches. PDA branch has moderate diffuse disease in the mid seg
--- NOTE | 2022-07-21 20:25 | PC.NURSE ---
This patient, Antwan Will, was admitted to Intensive Care Unit-1. Patient/family oriented to hospital policies and general routines including ID bracelet, bed and alarms, visiting hours, pain management, procedures, bathroom and other care routines, personal items, smoking policy, room service/diet, and visiting hours. Information on how to activate the Rapid Response Team has been discussed. Patient/Family are encouraged to report perceived risks to care and to ask questions if they do not understand what they are told or what they should do.
--- NOTE | 2022-07-21 20:35 | PM.IMHP ---
H&P: HPI History of Present Illness Date/Time: 07/21/22 20:35 Chief Complaint: chest pain for approximately 12 hours Narrative: 42-year-old male with hypertension, dyslipidemia, family history of CAD, tobacco abuse. Patient was brought to [facility] from urgent care with complaints of chest pain and inferior ST-elevation PA. He started having chest pain about 12 hours ago which persisted through the day and decided to go to the urgent care. His EKG which I personally evaluated showed ST-elevation in the inferior leads. Cardiac catheterization lab was activated for primary PCI. 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 He was given aspirin and heparin bolus in the emergency room. Patient denied any known prior cardiac history including clinical PA, angina, heart failure or any known arrhythmias. He gives family history of CAD in his mother. He is a smoker. He states that he takes lisinopril for hypertension and simvastatin for dyslipidemia. He states that his blood pressure is usually controlled. Patient's emergent coronary angiogram showed multivessel CAD with occluded OM 2 branch-likely infarct-related vessel; diffuse disease in the OM1 branch and subacute versus chronic total occlusion of proximal RCA. He underwent PCI/ stenting of OM2 and OM1 branches with placement of 2 Biotronik sirolimus eluting stents with shinto of MANDA 3 flow in the OM2 branch. Patient also underwent balloon angioplasty of diffusely diseased right coronary artery. The vessel was negatively remodeled and stenting was not performed in the RCA. The plan is to bring patient back to catheterization lab in next few weeks for relook angiogram of the RCA with intention to treat with stenting. At the conclusion of the PCI, patient was chest pain-free and clinically and hemodynamically stable. Review of Systems Review of Systems: General: Negative for fever, chills, fatigue Psychological: Negative for anxiety, depression Ophthalmic: negative for loss of vision ENT: Negative for epistaxis, headaches Allergy and immunology: Negative for hives, nasal congestion Hematologic and lymphatic: Negative for overt bleeding problems Endocrine: Negative for hot flashes, palpitations Respiratory: Negative for cough, hemoptysis Cardiovascular: Positive for chest pain and shortness of breath which resolved post PCI Gastrointestinal: Negative for abdominal pain, nausea, vomiting, hematochezia Musculoskeletal: Negative for myalgia, joint pains Neurological: Negative for weakness Dermatological: Negative for rash, skin discoloration PMFSH Past Medical History Medical History H/O thoracic outlet syndrome High cholesterol Hypertension Thoracic outlet syndrome Surgical History Surgical History History of thoracic surgery Family History Family History Mother Diabetes mellitus Heart problem Father Alzheimer's dementia Social History Social History Social History: Has tried to quit smoking of the last few months and is down to 2 to 3 cigarettes a day Smoking packs per day: 0.9 Smoking cigarettes per day: 18.0 Years smoked: 20 Smoking pack-years: 18.00 Smoking status: Current every day smoker Tobacco type: cigarettes Alcohol intake: current Drinks per week: 6 Alcohol use details: 5-6 beers once a week on saturdays Substance use: never Substance use type: does not use Living arrangements: with family Spiritual care concerns: No Meds Home Medications and Allergies Home Medications Medication Instructions Recorded Confirmed Type lisinopril 10 mg tablet 10 mg PO DAILY 09/10/20 07/21/22 History simvastatin 20 mg tablet 20 mg HS 01/13/21 07/21/22 History aspirin 81 m
[2022-07-21 21:47] LABS: Cholesterol 223 mg/dL (0-200); HDL Direct 35 mg/dL; Triglycerides 211 mg/dL (<150)
[2022-07-21 21:58] LABS: LDL Cholesterol Direct 138 mg/dL
[2022-07-21] MEDS: ATORVASTATIN 40 MG TABLET 80 MG PO (23:18)
[2022-07-21] MEDS: METOPROLOL TARTRATE 25 MG TABLET PO (23:19)
[2022-07-21] MEDS: SODIUM CHLORIDE 0.9% IV 1,000 ML 125 ML IV CONT (23:20)
[2022-07-22] VITALS (21 sets, daily range): BP systolic 98–123; BP diastolic 60–79; PULSE 60–86; RESP 13–22; TEMP 36.3–37.1; O2SAT 92–100
--- NOTE | 2022-07-22 | ECHO_ITS ---
Patient Info Name: Antwan Will Age: 42 years : 1980 Gender: Male Ht: 72 in Wt: 204 lbs BSA: 2.18 m2 HR: 63 bpm BP: 101 / 73 mmHg Heart Rhythm: Sinus Rhythm Technical Quality: Good Exam Date: 07/22/2022 10:22 AM Exam Location: [facility] Pulmonary Patient Status: Inpatient Admit Date: 07/21/2022 Staff Ordering Physician: Brent Johnson MD Full Service Vending Driver: Riya Flores RDCS Attending Provider: Sridhar Crawford MD Exam Type: CA echo dop color flow w con Study Info Indications I21.3 - ST elevation (STEMI) myocardial infarction of unspecified site Complete two-dimensional, color flow and Doppler transthoracic echocardiogram is performed with contrast to opacify the left ventricle and to improve the deliniation of the left ventricle endocardial borders. Contrast/Agitated Saline Contrast/Ag. Saline: Definity Amount: 4.00 ml Administered By: Riya Flores [facility] Summary 1. Left ventricular chamber dimension is normal. 2. Left ventricular systolic function is mildly reduced, estimated at 45-50%. 3. There is mildly increased left ventricular wall thickness. 4. The left ventricular diastolic function is abnormal. 5. The inferior wall, basal anterolateral wall, mid anterolateral wall, basal inferolateral wall, and mid inferolateral wall are hypokinetic. 6. There is mild mitral valve regurgitation. Left Ventricle Left ventricular chamber dimension is normal. Left ventricular systolic function is mildly reduced, estimated at 45-50%. There is mildly increased left ventricular wall thickness. The left ventricular diastolic function is abnormal. The inferior wall, basal anterolateral wall, mid anterolateral wall, basal inferolateral wall, and mid inferolateral wall are hypokinetic. All other zapata appear normal. Right Ventricle Right ventricular chamber dimension is normal. Right ventricular systolic function is normal. Left Atria Left atrial chamber dimension is normal. Right Atria Right atrial chamber dimension is normal. Atrial Septum Intact interatrial septum visualized by color flow imaging. Aortic Valve The aortic valve is trileaflet. There is mild aortic valve sclerosis. There is no aortic valve stenosis. There is trace aortic valve regurgitation. Pulmonic Valve The pulmonic valve is normal. There is no pulmonic valve stenosis. There is trace pulmonic regurgitation. Mitral Valve The mitral valve has normal leaflets. There is no mitral valve stenosis. There is mild mitral valve regurgitation. Tricuspid Valve The tricuspid valve leaflets are normal. There is no significant tricuspid valve stenosis. There is trace tricuspid valve regurgitation. Pericardium/Pleural The pericardium appears normal. There is no pericardial effusion. Inferior Vena Cava Normal inferior vena cava with >50% collapse upon inspiration consistent with normal right atrial pressure, 5 mmHg. Aorta The aortic root size at the sinus of Valsalva is normal. The prox ascending aorta size is normal. Left Ventricular Outflow Tract Name Value Normal LVOT 2D LVOT Diameter 2.10 cm LVOT Doppler
--- NOTE | 2022-07-22 08:18 | WPDCNINT ---
Assessment and Plan Assessment and plan (1) ST elevation (STEMI) myocardial infarction: Code(s): I21.3 - ST elevation (STEMI) myocardial infarction of unspecified site Status: Acute Assessment and Plan: Inferior STEMI status post PCI Multivessel percutaneous coronary intervention- a)? balloon angioplasty and stenting of totally occluded OM 2 branch using a? 3.0 x 26 mm Biotronik sirolimus eluting stent with evangelical of MANDA 3 flow; b)? balloon angioplasty and stenting of diffusely diseased proximal segment of OM1 branch using a 3.5 x 22 mm Biotronik sirolimus eluting stent; c)? balloon angioplasty of occluded and diffusely disease right coronary artery Check echocardiogram Continue aspirin statin Brilinta lisinopril and beta-jackelyn youth nutritional monitor Currently asymptomatic, hemodynamically stable and chest pain-free (2) Dyslipidemia: Code(s): E78.5 - Hyperlipidemia, unspecified Status: Acute Assessment and Plan: Continue statin (3) Hypertension: Code(s): I10 - Essential (primary) hypertension Status: Acute Assessment and Plan: On metoprolol and lisinopril Blood pressure in adequate range (4) Tobacco abuse: Code(s): Z72.0 - Tobacco use Status: Acute Assessment and Plan: Patient was counseled and encouraged to quit smoking. States that he is ready to quit for having a heart attack (5) Leukocytosis: Code(s): D72.829 - Elevated white blood cell count, unspecified Status: Acute Assessment and Plan: Patient had elevated WBC count. He was asymptomatic prior to developing chest pain and is now again asymptomatic. 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 Patient states chest pain started while he was sitting, 4/10 severe, dull achy, no radiation, no associated nausea vomiting, no lightheadedness, no dizziness or shortness of breath. Patient presented to urgent care where EKG showed inferior STEMI. Patient was transferred to ER was taken to cardiac catheterization lab where he underwent PCI as below Multivessel percutaneous coronary intervention- a)? balloon angioplasty and stenting of totally occluded OM 2 branch using a? 3.0 x 26 mm Biotronik sirolimus eluting stent with evangelical of MANDA 3 flow; b)? balloon angioplasty and stenting of diffusely diseased proximal segment of OM1 branch using a 3.5 x 22 mm Biotronik sirolimus eluting stent; c)? balloon angioplasty of occluded and diffusely disease right coronary artery This morning patient states he feels much better and denies any specific complaints. He states his chest pain has completely resolved. Patient denies fever, shortness of breath, cough, nausea vomiting, abdominal pain,, diarrhea, headache or constipation. He denies any dysuria hematuria melena hematochezia. No Chest pain or shortness of breath on exertion. All other systems were reviewed and were negative Review of Systems Review of Systems: All systems reviewed & are unremarkable except as noted in HPI and below (HPI) [facility] Past Medical History Medical History H/O thoracic outlet syndrome High cholesterol Hypertension Thoracic outlet syndrome Surgical History Surgical History History of thoracic surgery Family History Family History Mother Diabetes mellitus Heart problem Father Alzheimer's dementia
[2022-07-22] MEDS: METOPROLOL TARTRATE 25 MG TABLET PO ×2 (08:55→20:50)
[2022-07-22] MEDS: ASPIRIN 81 MG ENTERIC TABLET PO (08:55)
[2022-07-22] MEDS: TICAGRELOR 90 MG TABLET PO ×2 (08:55→20:50)
[2022-07-22] MEDS: lisinopriL 10 MG TABLET PO (08:56)
[2022-07-22] MEDS: ATORVASTATIN 40 MG TABLET 80 MG PO (08:56)
[2022-07-22 09:06] LABS: Hematocrit 45.4 % (42.0-52.0); Hemoglobin 14.2 g/dL (14.0-18.0); Mean Corpuscular HGB Conc 31.3 g/dl (32-36); Mean Corpuscular Hemoglobin 26.6 pg (26-34); Mean Platelet Volume 9.3 fl (7.4-10.4); Platelet Count Result 305 k/mm3 (150-375); Red Blood Count 5.34 M/mm3 (4.6-6.20); Red Cell Distribution Width 14.9 % (11.5-14.5); White Blood Count 10.2 K/mm3 (4.5-10.0)
--- NOTE | 2022-07-22 09:11 | PM.PNCARD ---
Progress Note: A&P Assessment and Plan (1) ST elevation (STEMI) myocardial infarction: Code(s): I21.3 - ST elevation (STEMI) myocardial infarction of unspecified site Status: Acute Assessment and Plan: Dual antiplatelet therapy with aspirin and ticagrelor, beta-jackelyn, Suleiman inhibitor or Arb (can switch to ARNI? if patient able to afford), and high-dose statin.? Outpatient LDL target less than 70, preferably less than 55. ? Relook angiography with intention to stent right coronary artery in next 4-6 weeks. Aggressive risk factor modification including smoking cessation Check a CBC and a basic metabolic panel tomorrow. (2) Tobacco abuse: Code(s): Z72.0 - Tobacco use Status: Acute Assessment and Plan: smoking cessation counseling was done. Patient is willing to quit tobacco. (3) Hypertension: Code(s): I10 - Essential (primary) hypertension Status: Acute Assessment and Plan: Patient will be resumed on home antihypertensives including lisinopril, and metoprolol will also be added to the medical regimen. Optimal blood pressure control. (4) Dyslipidemia: Code(s): E78.5 - Hyperlipidemia, unspecified Status: Acute Assessment and Plan: High-dose statin; outpatient LDL goal less than 55. Nexium 40 mg p.o. daily be started Subjective Date/time seen: 07/22/22 09:11 Interval history: 42-year-old presented with ST-elevation myocardial infarction yesterday evening Date of service 07/22/2022: Feels very good this morning. No chest pain, shortness of breath, groin pain Review of Systems Review of Systems: All systems reviewed & are unremarkable except as noted in HPI and below Constitutional: Constitutional: Denies body ache(s) Eyes: Eyes: Denies blurry vision ENT: Reports Normal hearing present Cardiovascular: Cardiovascular: Denies chest pain Respiratory: Respiratory: Denies chest congestion Gastrointestinal: Gastrointestinal: Denies abdominal pain Genitourinary: Genitourinary: Denies hematuria Musculoskeletal: Musculoskeletal: Denies back pain Integumentary/Breasts: Skin/Breast: Denies dry skin Neurologic: Denies Abnormal speech present Psychiatric: Psychiatric: Denies confusion Endocrine: Endocrine: Denies excessive sweating Hematologic/Lymphatic: Hematologic/Lymphatic: Denies easy bleeding Allergic/Immunologic: Allergic/Immunologic: Denies GI upset with certain foods Exam Narrative: PHYSICAL EXAMINATION: GENERAL: Alert, oriented, no acute distress MENTAL STATUS: affect appropriate to mood EYES: Extraocular movements intact, no pallor EARS: External ears appear normal, hearing grossly normal NOSE: Normal and patent, no discharge MOUTH: Mucous membranes moist, tongue normal NECK: Supple, no JVD CHEST: Good respiratory effort, clear to auscultation HEART: Normal rate, regular rhythm, normal S1 and S2 ABDOMEN: Soft, nontender NEUROLOGICAL: Alert, oriented, normal speech, no gross motor deficits MUSCULOSKELETAL: No major deformity, no amputation EXTREMITIES: No pedal edema, no clubbing, no cyanosis SKIN: no rash on the exposed area, no cyanosis. Right groin without hematoma ecchymosis or bruit PSYCHIATRIC: Normal mood, appropriate affect Objective Data Vital Signs Vital Signs: Vital Signs - 24 hr 07/21/22 18:22 07/21/22 18:32 07/21/22 18:38 Temperature 37.5 C Pulse Rate 106 H 105 H 101 H Respiratory Rate 20 17 Blood Pressure 126/89 Pulse Oximetry 99 100 Oxygen Delivery Room Air 07/21/22 20:45 07/21/22 21:00 07/21/22 21:15 Temperature 37.0 C Pulse Rate 63 63 64 Respiratory Rate 20 20 19 Blood Pressure 138/77 133/87 132/83 Pulse Oximetry 99 99 99 Oxygen Delivery 07/21/22 21:30 07/21/22 21:45 07/21/22 22:00 Temperature Pulse Rate 61 67 64 Respiratory Rate 19 20 Blood Pressure 134/74 130/84 Pulse Oximetry 98 96 Oxygen Delivery 07/21/22 22:00 07/21/22
[2022-07-22 09:16] LABS: Alanine Aminotransferase 33 U/L (6-50); Albumin Level 3.9 g/dL (3.5-5.1); Alkaline Phosphatase 99 U/L (38-126); Anion Gap 8 mmol/L (8-16); Aspartate Amino Transferase 128 U/L (17-59); Bilirubin,Total 0.9 mg/dL (0.2-1.3); Blood Urea Nitrogen 8 mg/dL (9-20); Calcium 8.8 mg/dL (8.4-10.2); Carbon Dioxide 24 mmol/L (22-30); Chloride 103 mmol/L (98-107); Estimated CRCL calculation 101 ml/min; Estimated Glomerular Filt Rate > 60; Glucose 148 mg/dL (65-110); Magnesium 1.8 mg/dL (1.6-2.3); Potassium 3.4 mmol/L (3.4-5.0); Sodium 135 mmol/L (137-145)
[2022-07-22] MEDS: PERFLUTREN LIPID MICROSPHERES 1.5 ML VIAL DILUTED TO 10 ML TOTAL VOLUME IV PUSH (10:00)
[2022-07-22] MEDS: PANTOPRAZOLE 40 MG TABLET PO (11:10)
--- NOTE | 2022-07-22 15:34 | PC.NURSE ---
This patient, Antwan Will, was received from ICU 1 on 07/22/22 at 1534. Patient/family oriented to unit policies and routines
--- NOTE | 2022-07-22 19:32 | PC.NURSE ---
10 beat run of Vtach noted. Dr. Tee made aware. New orders for stat Mag and K. Call provider for Mag < 2 or K <4>. ABIODUN Banks made aware.
[2022-07-22 20:03] LABS: Potassium 4.2 mmol/L (3.4-5.0)
--- NOTE | 2022-07-22 22:34 | PC.NURSE ---
[facility] flyer was given to patient.
[2022-07-23] VITALS (17 sets, daily range): BP systolic 96–127; BP diastolic 52–69; PULSE 56–82; RESP 14–20; TEMP 36.2–36.7; O2SAT 99–100
[2022-07-23 05:23] LABS: Hematocrit 44.6 % (42.0-52.0); Hemoglobin 14.1 g/dL (14.0-18.0); Mean Corpuscular HGB Conc 31.6 g/dl (32-36); Mean Corpuscular Hemoglobin 26.9 pg (26-34); Mean Platelet Volume 9.3 fl (7.4-10.4); Platelet Count Result 309 k/mm3 (150-375); Red Blood Count 5.25 M/mm3 (4.6-6.20); Red Cell Distribution Width 14.8 % (11.5-14.5); White Blood Count 10.7 K/mm3 (4.5-10.0)
[2022-07-23 05:33] LABS: Alanine Aminotransferase 28 U/L (6-50); Albumin Level 3.9 g/dL (3.5-5.1); Alkaline Phosphatase 96 U/L (38-126); Anion Gap 5 mmol/L (8-16); Aspartate Amino Transferase 67 U/L (17-59); Bilirubin,Total 0.4 mg/dL (0.2-1.3); Blood Urea Nitrogen 10 mg/dL (9-20); Calcium 8.7 mg/dL (8.4-10.2); Carbon Dioxide 30 mmol/L (22-30); Chloride 102 mmol/L (98-107); Estimated CRCL calculation 91 ml/min; Estimated Glomerular Filt Rate > 60; Glucose 99 mg/dL (65-110); Magnesium 1.9 mg/dL (1.6-2.3); Potassium 3.9 mmol/L (3.4-5.0); Sodium 137 mmol/L (137-145)
[2022-07-23] MEDS: lisinopriL 10 MG TABLET PO (08:26)
[2022-07-23] MEDS: TICAGRELOR 90 MG TABLET PO ×2 (08:26→20:19)
[2022-07-23] MEDS: ATORVASTATIN 40 MG TABLET 80 MG PO (08:27)
[2022-07-23] MEDS: METOPROLOL TARTRATE 25 MG TABLET PO ×2 (08:27→20:19)
[2022-07-23] MEDS: PANTOPRAZOLE 40 MG TABLET PO (08:27)
[2022-07-23] MEDS: ASPIRIN 81 MG ENTERIC TABLET PO (08:27)
--- NOTE | 2022-07-23 09:24 | PM.PNCARD ---
Progress Note: A&P Assessment and Plan (1) ST elevation (STEMI) myocardial infarction: Code(s): I21.3 - ST elevation (STEMI) myocardial infarction of unspecified site Status: Acute Assessment and Plan: Dual antiplatelet therapy with aspirin and ticagrelor, beta-jackelyn, Suleiman inhibitor or Arb (can switch to ARNI? if patient able to afford), and high-dose statin.? Outpatient LDL target less than 70, preferably less than 55. ? Relook angiography with intention to stent right coronary artery in next 4-6 weeks. Aggressive risk factor modification including smoking cessation CBC and electrolytes are stable (2) Tobacco abuse: Code(s): Z72.0 - Tobacco use Status: Acute Assessment and Plan: smoking cessation counseling was done. Patient is willing to quit tobacco. (3) Hypertension: Code(s): I10 - Essential (primary) hypertension Status: Acute Assessment and Plan: Patient will be resumed on home antihypertensives including lisinopril, and metoprolol will also be added to the medical regimen. Optimal blood pressure control. (4) Dyslipidemia: Code(s): E78.5 - Hyperlipidemia, unspecified Status: Acute Assessment and Plan: High-dose statin; outpatient LDL goal less than 55. (5) Nonsustained ventricular tachycardia: Code(s): I47.29 - Other ventricular tachycardia Status: Acute Assessment and Plan: Likely Related to recent MD. electrolytes are stable. Will give 1 g IV magnesium today. Continue telemetry today and likely DC home tomorrow Subjective Date/time seen: 07/23/22 09:24 Interval history: 42-year-old presented with ST-elevation myocardial infarction yesterday evening Date of service 07/22/2022: Feels very good this morning. No chest pain, shortness of breath, groin pain Date of service 07/23/2022: Burst of nonsustained VT last night. Asymptomatic. Up walking today and denies any groin pain, chest pain, shortness of breath. Feels good Review of Systems Review of Systems: All systems reviewed & are unremarkable except as noted in HPI and below Constitutional: Constitutional: Denies body ache(s) and Denies excessive sweating Eyes: Eyes: Denies blurry vision ENT: Reports Normal hearing present Cardiovascular: Cardiovascular: Denies chest pain Respiratory: Respiratory: Denies chest congestion Gastrointestinal: Gastrointestinal: Denies abdominal pain Genitourinary: Genitourinary: Denies hematuria Musculoskeletal: Musculoskeletal: Denies back pain Integumentary/Breasts: Skin/Breast: Denies dry skin Neurologic: Reports Normal hearing present, Denies Abnormal speech present and Denies confusion Psychiatric: Psychiatric: Denies confusion Endocrine: Endocrine: Denies excessive sweating Hematologic/Lymphatic: Hematologic/Lymphatic: Denies easy bleeding Allergic/Immunologic: Allergic/Immunologic: Denies GI upset with certain foods Exam Narrative: PHYSICAL EXAMINATION: GENERAL: Alert, oriented, no acute distress MENTAL STATUS: affect appropriate to mood EYES: Extraocular movements intact, no pallor EARS: External ears appear normal, hearing grossly normal NOSE: Normal and patent, no discharge MOUTH: Mucous membranes moist, tongue normal NECK: Supple, no JVD CHEST: Good respiratory effort, clear to auscultation HEART: Normal rate, regular rhythm, normal S1 and S2 ABDOMEN: Soft, nontender NEUROLOGICAL: Alert, oriented, normal speech, no gross motor deficits MUSCULOSKELETAL: No major deformity, no amputation EXTREMITIES: No pedal edema, no clubbing, no cyanosis SKIN: no rash on the exposed area, no cyanosis. Right groin without hematoma ecchymosis or bruit PSYCHIATRIC: Normal mood, appropriate affect Objective Data Vital Signs Vital Signs: Vital Signs - 24 hr 07/22/22 10:00 07/22/22 10:00 07/22/22 11:45 Temperature Pulse Rate 62 69 Respiratory Rate 16 Blood Pressure 10
[2022-07-23] MEDS: MAGNESIUM SULF 1 GM/D5W 100 ML 1 GM/100 ML BAG IVPB (10:31)
[2022-07-24] VITALS (8 sets, daily range): BP systolic 99–103; BP diastolic 57–61; PULSE 56–68; RESP 20; TEMP 35.6–36.2; O2SAT 100
[2022-07-24 04:57] LABS: Hemoglobin 13.3 g/dL (14.0-18.0); Mean Corpuscular HGB Conc 31.7 g/dl (32-36); Mean Corpuscular Hemoglobin 26.8 pg (26-34); Mean Corpuscular Volume 84.7 fl (80-100); Mean Platelet Volume 9.3 fl (7.4-10.4); Platelet Count Result 308 k/mm3 (150-375); Red Blood Count 4.96 M/mm3 (4.6-6.20); Red Cell Distribution Width 14.8 % (11.5-14.5)
[2022-07-24 05:10] LABS: Alanine Aminotransferase 23 U/L (6-50); Albumin Level 4.1 g/dL (3.5-5.1); Alkaline Phosphatase 96 U/L (38-126); Anion Gap 4 mmol/L (8-16); Aspartate Amino Transferase 43 U/L (17-59); Bilirubin,Total 0.6 mg/dL (0.2-1.3); Blood Urea Nitrogen 9 mg/dL (9-20); Calcium 8.8 mg/dL (8.4-10.2); Carbon Dioxide 29 mmol/L (22-30); Chloride 99 mmol/L (98-107); Estimated CRCL calculation 101 ml/min; Estimated Glomerular Filt Rate > 60; Glucose 98 mg/dL (65-110); Magnesium 2.1 mg/dL (1.6-2.3); Potassium 4.1 mmol/L (3.4-5.0); Sodium 132 mmol/L (137-145)
[2022-07-24] MEDS: lisinopriL 10 MG TABLET PO (08:13)
[2022-07-24] MEDS: ASPIRIN 81 MG ENTERIC TABLET PO (08:13)
[2022-07-24] MEDS: METOPROLOL TARTRATE 25 MG TABLET PO (08:13)
[2022-07-24] MEDS: PANTOPRAZOLE 40 MG TABLET PO (08:14)
[2022-07-24] MEDS: ATORVASTATIN 40 MG TABLET 80 MG PO (08:14)
[2022-07-24] MEDS: TICAGRELOR 90 MG TABLET PO (08:14)
--- NOTE | 2022-07-24 08:50 | PM.DS ---
DS: Admitting Diagnosis Discharge Date 07/24/2022 Admitting Diagnosis chest pain DS: Discharge Diagnosis Discharge Diagnosis (1) ST elevation (STEMI) myocardial infarction: Code(s): I21.3 - ST elevation (STEMI) myocardial infarction of unspecified site Status: Acute Assessment and Plan: Multivessel CAD presenting with STEMI due to 100% occlusion of the OM2 branch. He also has diffuse 60-70% stenosis in the proximal segment of the OM1 branch, 100% occlusion of the proximal RCA with small [id number] collaterals, 70% stenosis of the proximal segment of the ramus intermedius. Mild LV dysfunction with EF 40%. PCI with stenting of OM2 branch using a 3.0 x 26mm ISIAH PCI with stenting of OM1 branch using 3.5 x 22 ISIAH Balloon angioplasty of RCA Plan for staged intervention of RCA in 4-6 weeks Dual antiplatelet therapy with aspirin and ticagrelor, beta-jackelyn, Suleiman inhibitor or Arb (can switch to ARNI? if patient able to afford), and high-dose statin.?? Outpatient LDL target less than 70, preferably less than 55. Aggressive risk factor modification including smoking cessation (2) Tobacco abuse: Code(s): Z72.0 - Tobacco use Status: Acute Assessment and Plan: Smoking cessation counseling performed. He is committed to quitting. (3) Hypertension: Code(s): I10 - Essential (primary) hypertension Status: Acute Assessment and Plan: Patient will be resumed on home antihypertensives including lisinopril, and metoprolol will also be added to the medical regimen. Optimal blood pressure control. (4) Dyslipidemia: Code(s): E78.5 - Hyperlipidemia, unspecified Status: Acute Assessment and Plan: High-dose statin; outpatient LDL goal less than 55. (5) Nonsustained ventricular tachycardia: Code(s): I47.29 - Other ventricular tachycardia Status: Acute Assessment and Plan: Likely related to recent [place]. Electrolytes stable today. Two episodes of NSVT on tele overnight (3 beats and 5 beats). Self-limiting, asymptomatic. Continue beta jackelyn. DS: Summary Hospital Course Hospital Course: Presented 07/21/2022 from urgent care with chest pain where EKG showed ST elevation in the inferior leads. 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 LV systolic dysfunction with akinesis of basal and mid inferior segments; ejection fraction about 40%, LVEDP 6 mmHg. He underwent multivessel PCI with PTCA/ stenting of totally occluded OM 2 branch using a 3.0 x 26 mm Biotronik sirolimus eluting stent with evangelical of MANDA 3 flow; PCI/ stenting of diffusely diseased proximal segment of OM1 branch using a 3.5 x 22 mm Biotronik sirolimus eluting stent; balloon angioplasty of occluded and diffusely diseased right coronary artery. He had some NSVT so he was kept in the hospital for electrolyte replacement and monitoring on telemetry. Today, he is feeling very well, has not had any significant ventricular ectopy overnight, and is ready for discharge home. Time Spent with Patient Time attestation: Total time spent providing and/or coordinating discharge services: Exam Const: General: comfortable, no acute distress, alert and awake Orientation/consciousness: patient oriented x3 HENMT: Head: normal to inspection Eyes: General: appearance normal, both eyes and all related structures Pupils: Equal, round and reactive pupils present Neck: Neck: normal visual inspection, supple and no JVD Carotids: normal carotid upstroke Resp: Effort & Inspection: normal respiratory effort
== END 2022-07-24 10:01 | disposition home or self-care (01) | DRG 247 ==
LOC: ANHED 18:35 → ANHCATHLAB 20:14 → ANHICU 20:32 → ANHIMU 07-22 15:37
PROVIDERS: Internal Medicine; Internal Medicine Cardiovascular Disease; Admitting Provider Internal Medicine Cardiovascular Disease; Emergency Provider Emergency Medicine; PCP Emergency Medicine; Visit Provider Nurse Practitioner
PROC: 4A023N7 Measurement of Cardiac Sampling and Pressure, Left Heart, Percutaneous Approach (ICD-10-PCS; CPT 93452; principal; 2022-07-21 18:30)
PROC: 027135Z Dilation of Coronary Artery, Two Arteries with Two Drug-eluting Intraluminal Devices, Percutaneous Approach (ICD-10-PCS; 2022-07-21 18:30)
PROC: 027135Z Dilation of Coronary Artery, Two Arteries with Two Drug-eluting Intraluminal Devices, Percutaneous Approach (ICD-10-PCS; CPT 92928; 2022-07-21 18:30)
PROC: 02703ZZ Dilation of Coronary Artery, One Artery, Percutaneous Approach (ICD-10-PCS; CPT 92920; 2022-07-21 18:30)
PROC: 027135Z Dilation of Coronary Artery, Two Arteries with Two Drug-eluting Intraluminal Devices, Percutaneous Approach (ICD-10-PCS; 2022-07-21 18:30)
DX: I21.19 ST elevation (STEMI) myocardial infarction involving other coronary artery of inferior wall (principal); I47.29 Other ventricular tachycardia; I25.10 Atherosclerotic heart disease of native coronary artery without angina pectoris; I10 Essential (primary) hypertension; E78.00 Pure hypercholesterolemia, unspecified; G54.0 Brachial plexus disorders; F17.210 Nicotine dependence, cigarettes, uncomplicated
CPT/HCPCS: 36415; 80053; 80061; 83690; 83735; 84132; 84484; 85025; 85027; 85610; 85730; 86850; 86900; 86901; 92920; 93005; 93458; 96374; 99285; A9270; C1725; C1760; C1769; C1874; C1887; C1894; C8929; C9600; C9606; G0269; J0583; J1644; J2250; J3010; J3475; J7030; J7040; Q9957

== ENCOUNTER 2022-08-12 13:18 | Emergency (ER) | payer OTHER, SELFPAY ==
[2022-08-12 13:58] VITALS: BP 114/67; PULSE 73; RESP 16; TEMP 37.1; O2SAT 98
--- NOTE | 2022-08-12 14:32 | ED.URI ---
HPI - URI/Sore Throat General Chief Complaint: Upper Respiratory Infection Stated Complaint: sore throat Time Seen by Provider: 08/12/22 14:32 History of Present Illness HPI Narrative: 42-year-old male presented for complaint of itching and burning sensation to the back of his throat since yesterday. Endorses postnasal drainage and occasional cough. He denies shortness of breath, wheezing, nausea, vomiting, diarrhea, fevers or chills. Denies known sick contacts. Not taking anything for symptoms. Related Data Home Medications Medication Instructions Recorded Confirmed lisinopril 10 mg tablet 10 mg PO DAILY 09/10/20 07/21/22 esomeprazole magnesium 40 mg 40 mg PO DAILY 07/21/22 07/21/22 capsule,delayed release (Nexium) pregabalin 25 mg capsule 25 mg TID 07/21/22 07/21/22 Allergies Allergy/AdvReac Type Severity Reaction Status Date / Time ciprofloxacin Allergy Severe Swelling Verified 08/12/22 14:23 of Lip/Tongue/Throat Latex, Natural Rubber Allergy Unknown Rash Verified 08/12/22 14:23 Review of Systems Review of Systems: CONSTITUTIONAL: Denies body aches, fever, chills, or sweats. EYES: Denies visual changes, redness, or discharge. ENT: Endorses rhinorrhea, congestion CARDIOVASCULAR: Denies chest pain, palpitations, or edema. RESPIRATORY: Denies dyspnea. GASTROINTESTINAL: Denies abdominal pain, nausea, vomiting, or diarrhea. SKIN: Denies rash, itching, or wounds. MUSCULOSKELETAL: Denies back pain, joint pain, or myalgia. NEUROLOGIC: Denies headache PMFSH Past Medical History Medical History H/O thoracic outlet syndrome High cholesterol Hypertension Thoracic outlet syndrome Surgical History Surgical History History of thoracic surgery Family History Family History Mother Diabetes mellitus Heart problem Father Alzheimer's dementia Social History Social History Social History: Has tried to quit smoking of the last few months and is down to 2 to 3 cigarettes a day Smoking packs per day: 0.9 Smoking cigarettes per day: 18.0 Years smoked: 20 Smoking pack-years: 18.00 Smoking status: Current every day smoker Tobacco type: cigarettes Alcohol intake: current Drinks per week: 6 Alcohol use details: 5-6 beers once a week on saturdays Substance use: never Substance use type: does not use Lack of Transportation: No Lack of Food: Never True Current Housing: I Have Housing Concerned About Future Housing: No Difficulty Paying Gas/Electric Bills: No Difficulty Paying for Meds: No Currently Unemployed: No Education: High School Diploma/GED Difficulty w/ Childcare or Family Care: No Living arrangements: with family Spiritual care concerns: No Exam Narrative: GENERAL: well-appearing, no acute distress. EYES: conjunctivae clear ENT: Mucous membranes moist. TMs pearly mnedez with normal light reflex bilaterally; no tragal tenderness. Oropharynx erythematous without lesions or exudate. No drooling, no hoarseness, no trismus, uvula midline. No tripod positioning, hot potato voice, or soft palate swelling. NECK: Supple. No lymphadenopathy CHEST: Clear to auscultation, breath sounds equal. No respiratory distress, speaks in full sentences. HEART: Regular rate and rhythm. No murmur heard. SKIN: Warm, dry, no rash. NEURO: Alert and oriented x3. Course Course Emergency Course: Patient is aware of diagnosis, understands and agrees to treatment plan. Anticipatory guidance given. Patient agrees to follow-up as directed and is aware of reasons to seek care at the emergency department. Portions of this record may have been created with voice recognition software Level of Care: Express Care Visit Vital Signs Vit
== END 2022-08-12 14:40 | disposition home or self-care (01) ==
PROVIDERS: Emergency Provider Nurse Practitioner Family; PCP Emergency Medicine
DX: J02.9 Acute pharyngitis, unspecified (principal); F17.210 Nicotine dependence, cigarettes, uncomplicated; E78.00 Pure hypercholesterolemia, unspecified; I10 Essential (primary) hypertension
CPT/HCPCS: 87081; 87880; 99213; G0463

== ENCOUNTER 2022-10-11 09:45 | Outpatient (RCR) | payer OTHER, SELFPAY | END 2022-10-30 10:10 | disposition home or self-care (01) | LOC: ANHCPREHAB 09:45 | PROVIDERS: PCP Emergency Medicine; Visit Provider Internal Medicine Cardiovascular Disease | DX: Z95.5 Presence of coronary angioplasty implant and graft (principal) | CPT/HCPCS: 93798 ==

== ENCOUNTER 2022-10-30 18:06 | Emergency (ER) | payer OTHER, SELFPAY ==
--- NOTE | ~2022-10-30 | XR_ITS ---
EXAMINATION: XR elbow LT min 3V DATE: 10/30/2022 18:45 INDICATION: Left elbow pain and bruising after lifting objects TECHNIQUE: Anteroposterior, two oblique and lateral views of the left elbow were obtained. COMPARISON: None. FINDINGS: Alignment is normal. No fracture or joint effusion. Joint spaces are normal. Soft tissues are unremar kable. IMPRESSION: 1. Negative left elbow radiographs. Reviewed, dictated and finalized at location A.
[2022-10-30 18:27] VITALS: BP 129/74; PULSE 79; RESP 16; TEMP 37.1; O2SAT 100
--- NOTE | 2022-10-30 18:33 | ED.UPPEXIN ---
HPI - Extremity Injury (Upper) General Chief Complaint: Extremity Injury, Upper Stated Complaint: Pain in left forearm/elbow; [place] pop in arm Time Seen by Provider: 10/30/22 19:15 Source: patient and RN notes reviewed Mode of arrival: ambulatory Limitations: no limitations History of Present Illness HPI narrative: 42-year-old male presents with concern for left elbow injury. Reports he was lifting something heavy on Sunday when he felt a pop and had pain in his elbow. Reports since then a bruise his appear. He reports his elbow hurts when he flexes his fingers. He denies direct blunt trauma. MD complaint: injury to: left and elbow Related Data Home Medications Medication Instructions Recorded Confirmed lisinopril 10 mg tablet 10 mg PO DAILY 09/10/20 07/21/22 esomeprazole magnesium 40 mg 40 mg PO DAILY 07/21/22 07/21/22 capsule,delayed release (Nexium) pregabalin 25 mg capsule 25 mg TID 07/21/22 07/21/22 Allergies Allergy/AdvReac Type Severity Reaction Status Date / Time ciprofloxacin Allergy Severe Swelling Verified 10/30/22 18:12 of Lip/Tongue/Throat Latex, Natural Rubber Allergy Unknown Rash Verified 10/30/22 18:12 Review of Systems Review of Systems: CONSTITUTIONAL: Denies malaise, chills, sweats, or fever. SKIN: Denies rash or itching, open skin, laceration, abrasion, redness, warmth, swelling. MUSCULOSKELETAL: Reports left elbow pain and bruising NEUROLOGIC: Denies numbness, weakness All systems reviewed & are unremarkable except as noted in HPI and below PMFSH Past Medical History Medical History H/O thoracic outlet syndrome High cholesterol Hypertension Thoracic outlet syndrome Surgical History Surgical History History of thoracic surgery Family History Family History (Updated 10/03/22 @ 11:24 by Nataliia Jean Baptiste RN) Mother Diabetes mellitus Heart disease Heart problem Alzheimer's dementia Father Alzheimer's dementia [place] Other Endometrial cancer Social History Social History Social History: Has tried to quit smoking of the last few months and is down to 2 to 3 cigarettes a day Smoking packs per day: 1 Smoking cigarettes per day: 20.0 Years smoked: 27 Smoking pack-years: 27.00 Smoking status: Current every day smoker Tobacco type: cigarettes Additional smoking assessment comments: down to 2 cigs per day, working on quitting Alcohol intake: current Drinks per week: 6 Alcohol use details: 5-6 beers once a week on saturdays Substance use: never Substance use type: does not use Lack of Transportation: No Lack of Food: Never True Current Housing: I Have Housing Concerned About Future Housing: No Difficulty Paying Gas/Electric Bills: No Difficulty Paying for Meds: No Currently Unemployed: No Education: High School Diploma/GED Difficulty w/ Childcare or Family Care: No Living arrangements: with family Spiritual care concerns: No Comments At time of signature, agree with nursing past medical, surgical, social and family history. There is no relevant family history pertinent to the presenting complaint Exam Narrative: GENERAL: Well-appearing, well-nourished, and in no acute distress. HEAD: Normocephalic, atraumatic. EYES: PERRLA, conjunctivae clear NECK: Supple. CHEST: Speaks in full sentences. No respiratory distress. HEART: Regular rate and rhythm. Normal and equal peripheral pulses. EXTREMITIES: Left elbow, hand, digits have grossly normal strength and sensation, grossly normal range of motion for patient baseline. No edema. Ecchymosis noted below the elbow and above the elbow. 5/5 strength with elbow in digit flexion and extension. Normal sensation with sensitivity to light touch and pain. No point tenderness. No open wo
== END 2022-10-30 19:26 | disposition home or self-care (01) ==
PROVIDERS: Emergency Provider Nurse Practitioner; PCP Emergency Medicine
DX: S59.902A Unspecified injury of left elbow, initial encounter (principal); X50.0XXA Overexertion from strenuous movement or load, initial encounter; E78.00 Pure hypercholesterolemia, unspecified; I10 Essential (primary) hypertension
CPT/HCPCS: 73080; 99213; A4565; G0463

== ENCOUNTER 2022-12-04 19:05 | Emergency (ER) | payer OTHER, SELFPAY ==
[2022-12-04 19:41] VITALS: BP 140/69; PULSE 60; RESP 16; TEMP 37.1; O2SAT 100
--- NOTE | 2022-12-04 19:48 | ED.SKABFB ---
HPI - Skin/Abscess/Foreign Bdy General Chief complaint: Skin/Abscess/Foreign Body Stated complaint: Rash Time Seen by Provider: 12/04/22 19:49 Source: patient Mode of arrival: ambulatory Limitations: no limitations History of Present Illness HPI narrative: 42-year-old male presented for complaint of rash to bilateral forearms and left ankle for 3 days. He has applied Benadryl ointment and has taken Benadryl without relief. 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 Denies lip, tongue, or throat swelling, shortness of breath or wheezing. Denies changes to soap, detergent, lotion, or any other exposures. No one else in the house or any contacts with similar symptoms. Related Data Home Medications Medication Instructions Recorded Confirmed lisinopril 10 mg tablet 10 mg PO DAILY 09/10/20 12/04/22 esomeprazole magnesium 40 mg 40 mg PO DAILY 07/21/22 12/04/22 capsule,delayed release (Nexium) pregabalin 25 mg capsule 25 mg TID 07/21/22 12/04/22 Allergies Allergy/AdvReac Type Severity Reaction Status Date / Time ciprofloxacin Allergy Severe Swelling Verified 12/04/22 19:10 of Lip/Tongue/Throat Latex, Natural Rubber Allergy Unknown Rash Verified 12/04/22 19:10 Review of Systems Review of Systems: CONSTITUTIONAL: Denies body aches, fever, chills, or sweats. EYES: Denies visual changes, redness, or discharge. ENT: Denies rhinorrhea, congestion CARDIOVASCULAR: Denies chest pain, palpitations, or edema. RESPIRATORY: Denies cough or dyspnea. GASTROINTESTINAL: Denies abdominal pain, nausea, vomiting, or diarrhea. SKIN: per HPI MUSCULOSKELETAL: Denies back pain, joint pain, or myalgia. NEUROLOGIC: Denies headache, numbness, tingling, or weakness. [facility] Past Medical History Medical History H/O thoracic outlet syndrome High cholesterol Hypertension Thoracic outlet syndrome Surgical History Surgical History History of thoracic surgery Family History Family History Mother Diabetes mellitus Heart disease Heart problem Alzheimer's dementia Father Alzheimer's dementia [place] Other Endometrial cancer Social History Social History Social History: Has tried to quit smoking of the last few months and is down to 2 to 3 cigarettes a day Smoking packs per day: 1 Smoking cigarettes per day: 20.0 Years smoked: 27 Smoking pack-years: 27.00 Smoking status: Current every day smoker Tobacco type: cigarettes Additional smoking assessment comments: down to 2 cigs per day, working on quitting Alcohol intake: current Drinks per week: 6 Alcohol use details: 5-6 beers once a week on saturdays Substance use: never Substance use type: does not use Lack of Transportation: No Lack of Food: Never True Current Housing: I Have Housing Concerned About Future Housing: No Difficulty Paying Gas/Electric Bills: No Difficulty Paying for Meds: No Currently Unemployed: No Education: High School Diploma/GED Difficulty w/ Childcare or Family Care: No Living arrangements: with family Spiritual care concerns: No Comments At time of signature, I have reviewed and agree with nursing past medical, surgical, social and family history unless otherwise noted. Please see nursing chart for further information. There is no relevant family history pertinent to the presenting complaint Exam Narrative: GENERAL: Well-appearing HEAD: Normocephalic, atraumatic. EYES: conjunctivae clear, and EOMI. ENT: Mucous membranes moist. Oropharynx without edema, erythema or lesions. NECK: Supple. No lymphadenopathy CHEST: Clear to auscultation. HEART: Regular rate and rhythm. SKIN: Warm, dry. Scattered erythematous vesicular lesions noted to bilateral forearms and left an
== END 2022-12-04 20:05 | disposition home or self-care (01) ==
PROVIDERS: Emergency Provider Nurse Practitioner Family; PCP Emergency Medicine
DX: L25.9 Unspecified contact dermatitis, unspecified cause (principal); F17.210 Nicotine dependence, cigarettes, uncomplicated; E78.00 Pure hypercholesterolemia, unspecified; I10 Essential (primary) hypertension
CPT/HCPCS: 99213; G0463

== ENCOUNTER 2023-05-31 11:04 | Emergency (ER) | payer OTHER, SELFPAY ==
--- NOTE | ~2023-05-31 | CT_ITS ---
EXAMINATION: CT chest abdomen pelvis w con DATE: 05/31/2023 13:14 INDICATION: Epigastric discomfort. Dysphagia. Dubose's esophagus. TECHNIQUE: Computed tomography (CT) of the chest, abdomen, and pelvis was performed with 100 mL Omnip aque 350 intravenous contrast. Automated exposure control and iterative reconstruction technique were employed. The dose-length product was 537.80 mGy-cm. COMPARISON: Chest CT 09/10/2020 FINDINGS: CHEST CT: The lungs demonstrate minimal atelectasis. No pleural effusion. The heart size is normal. There are c oronary artery calcifications. No pericardial effusion. There is a small sliding hiatal hernia. There is wall thickening of the distal esophagus. There is mild chronic anterior wedging of multiple verte bral bodies. There is mild thoracic spondylosis. ABDOMEN/PELVIS CT: The liver, gallbladder, and pancreas are normal. There are 2 cysts in the spleen measuring up to 18 m m. The adrenal glands and left kidney are normal. There is an 11 mm cyst in right kidney. There is di verticulosis of the colon without evidence of diverticulitis. There are no dilated loops of bowel. Th e appendix is normal. There are no pathologically enlarged lymph nodes. There is no free intraperiton eal fluid. There is mild lumbar spondylosis. IMPRESSION: 1. Small sliding hiatal hernia. 2. Wall thickening of the distal esophagus, consistent with esophagitis. Reviewed, dictated and finalized at location A. LOGY COORDINATOR
[2023-05-31 11:05] VITALS: BP 114/64; PULSE 57; RESP 18; TEMP 36.4; O2SAT 100
--- NOTE | 2023-05-31 11:39 | ED.GENADULT ---
HPI - General Adult General Chief complaint: Unspecified Stated complaint: barretts esophagus- unable to swallow Time Seen by Provider: 05/31/23 11:37 Source: patient and family (spouse) Mode of arrival: ambulatory Limitations: no limitations History of Present Illness HPI narrative: Patient is a pleasant 43-year-old male with a past medical history of Dubose's esophagus and history as below presents emergency department today ambulatory with a steady gait for evaluation of having difficulty swallowing his medications more than usual and needing a referral for GI. He has seen Dr. Nichols with GI in the past but needs a new referral and can't see a new PCP until July. He denies any fever, chills, pain in his chest pain or shortness of breath, nausea, diarrhea, constipation, choking, or any vomiting. He has a decreased appetite. denies any cough, recent illness. taking OTC Nexium. Related Data Home Medications Medication Instructions Recorded Confirmed lisinopril 10 mg tablet 10 mg PO DAILY 09/10/20 12/04/22 esomeprazole magnesium 40 mg 40 mg PO DAILY 07/21/22 12/04/22 capsule,delayed release (Nexium) pregabalin 25 mg capsule 25 mg TID 07/21/22 12/04/22 Allergies Allergy/AdvReac Type Severity Reaction Status Date / Time ciprofloxacin Allergy Severe Swelling Verified 05/31/23 11:51 of Lip/Tongue/Throat Latex, Natural Rubber Allergy Unknown Rash Verified 05/31/23 11:51 Review of Systems Review of Systems: CONSTITUTIONAL: Denies fever, chills, or sweats. decreased appetite present EYES: Denies visual changes, redness, or discharge. ENT: Denies rhinorrhea, congestion, sore throat, or otalgia. CARDIOVASCULAR: Denies chest pain, palpitations, or edema. RESPIRATORY: Denies cough or dyspnea. GASTROINTESTINAL: discomfort/trouble swallowing pills. Denies abdominal pain, nausea, vomiting, or diarrhea. GENITOURINARY: Denies dysuria or hematuria. SKIN: Denies rash or itching. MUSCULOSKELETAL: Denies back pain, joint pain, or myalgia. NEUROLOGIC: Denies headache, numbness, or weakness. PSYCHIATRIC: Denies anxiety or depression. All systems reviewed & are unremarkable except as noted in HPI and below PMFSH Past Medical History Medical History H/O thoracic outlet syndrome High cholesterol Hypertension Thoracic outlet syndrome Surgical History Surgical History History of thoracic surgery Family History Family History Mother Diabetes mellitus Heart disease Heart problem Alzheimer's dementia Father Alzheimer's dementia [place] Other Endometrial cancer Social History Social History Social History: Has tried to quit smoking of the last few months and is down to 2 to 3 cigarettes a day Smoking packs per day: 1 Smoking cigarettes per day: 20.0 Years smoked: 27 Smoking pack-years: 27.00 Smoking status: Current every day smoker Tobacco type: cigarettes Additional smoking assessment comments: down to 2 cigs per day, working on quitting Alcohol intake: current Drinks per week: 6 Alcohol use details: 5-6 beers once a week on saturdays Substance use: never Substance use type: does not use Lack of Transportation: No Lack of Food: Never True Current Housing: I Have Housing Concerned About Future Housing: No Difficulty Paying Gas/Electric Bills: No Difficulty Paying for Meds: No Currently Unemployed: No Education: High School Diploma/GED Difficulty w/ Childcare or Family Care: No Living arrangements: with family Spiritual care concerns: No Exam Narrative: GENERAL: Well-appearing, well-nourished, and in no acute distress. HEAD: Normocephalic, atraumatic. EYES: PERRLA and EOMI. ENT: Nares clear, no rhinorrhea or epis
[2023-05-31 11:45] VITALS: RESP 16
[2023-05-31] MEDS: PANTOPRAZOLE SODIUM IV 40 MG VIAL IV PUSH (12:26)
[2023-05-31 12:29] LABS: Basophils Absolute Auto 0.1 K/mm3 (0.0-0.1); Basophils Percent Auto 0.7 % (0.2-1.2); Eosinophils Absolute Auto 0.1 K/mm3 (0-0.3); Eosinophils Percent Auto 1.6 % (0-4.4); Hematocrit 44.9 % (42.0-52.0); Hemoglobin 14.2 g/dL (14.0-18.0); Immature Granulocyte Absolute 0.02 K/mm3 (0.00-0.031); Immature Granulocyte Percent A 0.3 % (0-0.5); Lymphocytes Absolute Auto 2.17 K/mm3 (0.9-3.2); Lymphocytes Percent Auto 30.6 % (18.3-44.2); Mean Corpuscular HGB Conc 31.6 g/dl (32-36); Mean Corpuscular Hemoglobin 28.3 pg (26-34); Mean Corpuscular Volume 89.6 fl (80-100); Monocytes Absolute Auto 0.7 K/mm3 (0.1-0.6); Monocytes Percent Auto 10.3 % (2.6-8.5); Neutrophils Percent Auto 56.5 % (45.5-73.1); Platelet Count Result 280 k/mm3 (150-375); Red Blood Count 5.01 M/mm3 (4.6-6.20); Red Cell Distribution Width 14.3 % (11.5-14.5); White Blood Count 7.1 K/mm3 (4.5-10.0)
[2023-05-31 12:38] LABS: Alanine Aminotransferase 16 U/L (6-50); Albumin Level 4.4 g/dL (3.5-5.1); Alkaline Phosphatase 88 U/L (38-126); Anion Gap 5 mmol/L (8-16); Aspartate Amino Transferase 34 U/L (17-59); Bilirubin,Total 0.6 mg/dL (0.2-1.3); Blood Urea Nitrogen 4 mg/dL (9-20); Calcium 9.3 mg/dL (8.4-10.2); Carbon Dioxide 30 mmol/L (22-30); Chloride 105 mmol/L (98-107); Estimated CRCL calculation 126 ml/min; Estimated Glomerular Filt Rate > 60; Glucose 98 mg/dL (65-110); Lipase 117 U/L (23-300); Magnesium 1.9 mg/dL (1.6-2.3); Potassium 4.4 mmol/L (3.4-5.0); Sodium 140 mmol/L (137-145)
[2023-05-31 12:39] LABS: Prothrombin Time 13.5 Seconds (11.1-14.7)
[2023-05-31 15:00] VITALS: BP 116/61; PULSE 60; RESP 16; O2SAT 99
== END 2023-05-31 15:00 | disposition home or self-care (01) ==
PROVIDERS: Emergency Provider Nurse Practitioner
DX: K22.70 Barrett's esophagus without dysplasia (principal); K20.90 Esophagitis, unspecified without bleeding; K44.9 Diaphragmatic hernia without obstruction or gangrene; E78.00 Pure hypercholesterolemia, unspecified; I10 Essential (primary) hypertension; F17.210 Nicotine dependence, cigarettes, uncomplicated; Z79.82 Long term (current) use of aspirin
CPT/HCPCS: 36415; 71260; 74177; 80053; 83690; 83735; 85025; 85610; 96374; 99284; C9113; Q9967

== ENCOUNTER 2023-07-04 20:15 | Observation (INO) | payer OTHER, SELFPAY ==
--- NOTE | ~2023-07-04 | XR_ITS ---
EXAMINATION: XR chest 2V DATE: 07/05/2023 02:43 INDICATION: Food impaction in the esophagus. TECHNIQUE: Frontal and lateral views of the chest were obtained. COMPARISON: Chest view 01/13/2021, chest CT 05/31/2023 FINDINGS: There is no pneumonia, pleural effusion, or pneumothorax. The heart size is normal. Surgica l clips overlie left chest. IMPRESSION: 1. No acute cardiopulmonary disease. Reviewed, dictated and finalized at location E. OPHYSICS TEACHER
[2023-07-04 20:16] VITALS: BP 120/74; PULSE 65; RESP 17; TEMP 36.4; O2SAT 100
[2023-07-05] VITALS (11 sets, daily range): BP systolic 104–122; BP diastolic 55–79; PULSE 53–109; RESP 12–18; TEMP 35.9–36.7; O2SAT 98–100; BMI 22.4
--- NOTE | 2023-07-05 00:18 | PC.NURSE ---
Patient given carbonated beverages to help pass bolus
--- NOTE | 2023-07-05 01:57 | ECG_ITS ---
Measurements Intervals Jerome Rate: 45 P: 57 GA: 129 QRS: 53 QRSD: 102 T: 31 QT: 439 QTc: 382 Interpretive Statements SINUS BRADYCARDIA MINIMAL Q WAVES- INFERIOR LEADS BASELINE ARTIFACT- V3 ABNORMAL ECG COMPARED TO ECG 07/21/2022 18:24:21 SINUS BRADYCARDIA NOW PRESENT Electronically Signed On 07-05-2023 6:37:22 [employer] by Vitor Santos D.O.
--- NOTE | 2023-07-05 01:58 | ED.GENADULT ---
HPI - General Adult General Chief complaint: Unspecified Stated complaint: food stuck Time Seen by Provider: 07/05/23 00:05 Source: patient and family Limitations: no limitations History of Present Illness HPI narrative: Patient is a 43-year-old male presents to the emergency department complaining of food getting stuck when he retracts follow-up. Patient admits to extensive history of this in the past noted he has been diagnosed with Dubose's esophagus and has had multiple dilations of his esophagus throughout his life beginning at 11 years old his last esophageal dilation was in 2012. Patient admits to being known to GI Dr. 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 Patient states he has been having progressive sensation of things getting stuck near xiphoid process is worried points to over the past couple months and he ate some mashed potatoes tonight and felt like it got stuck and he is having progressive difficulty keeping things down feeling like they are getting stuck even with fluids now and admits to a 30 lb weight loss over the past couple months. Patient denies chest pain, difficulty breathing, fever, recent injuries, recent illness, diarrhea, vomiting, new or change medications. Patient admits to taking his pills this morning and tonight he also took half of his Brilinta. Related Data Home Medications Medication Instructions Recorded Confirmed lisinopril 10 mg tablet 10 mg PO DAILY 09/10/20 12/04/22 esomeprazole magnesium 40 mg 40 mg PO DAILY 07/21/22 12/04/22 capsule,delayed release (Nexium) pregabalin 25 mg capsule 25 mg TID 07/21/22 12/04/22 Allergies Allergy/AdvReac Type Severity Reaction Status Date / Time ciprofloxacin Allergy Severe Swelling Verified 05/31/23 11:51 of Lip/Tongue/Throat Latex, Natural Rubber Allergy Unknown Rash Verified 05/31/23 11:51 Review of Systems Review of Systems: A 10 system review of systems was completed on the patient and is negative except for what is stated in the HPI. Nursing and ancillary documentation was reviewed. [facility] Past Medical History Medical History H/O thoracic outlet syndrome High cholesterol Hypertension Thoracic outlet syndrome Surgical History Surgical History History of thoracic surgery Family History Family History Mother Diabetes mellitus Heart disease Heart problem Alzheimer's dementia Father Alzheimer's dementia [place] Other Endometrial cancer Social History Social History Social History: Has tried to quit smoking of the last few months and is down to 2 to 3 cigarettes a day Smoking packs per day: 1 Smoking cigarettes per day: 20.0 Years smoked: 27 Smoking pack-years: 27.00 Smoking status: Current every day smoker Tobacco type: cigarettes Additional smoking assessment comments: down to 2 cigs per day, working on quitting Alcohol intake: current Drinks per week: 6 Alcohol use details: 5-6 beers once a week on saturdays Substance use: never Substance use type: does not use Lack of Transportation: No Lack of Food: Never True Current Housing: I Have Housing Concerned About Future Housing: No Difficulty Paying Gas/Electric Bills: No Difficulty Paying for Meds: No Currently Unemployed: No Education: High School Diploma/GED Difficulty w/ Childcare or Family Care: No Living arrangements: with family Spiritual care concerns: No Comments At time of signature, I have reviewed and agree with nursing past medical, surgical, social and family history unless otherwise noted. Please see the nursing chart for further information. There is no relevant family
[2023-07-05] MEDS: SODIUM CHLORIDE 0.9% IV 1,000 ML 999 ML IV CONT (02:18)
[2023-07-05] MEDS: FAMOTIDINE 20 MG/2 ML VIAL IV PUSH (02:18)
[2023-07-05 02:28] LABS: Basophils Absolute Auto 0.1 K/mm3 (0.0-0.1); Basophils Percent Auto 0.9 % (0.2-1.2); Eosinophils Absolute Auto 0.2 K/mm3 (0-0.3); Hematocrit 43.8 % (42.0-52.0); Hemoglobin 14.1 g/dL (14.0-18.0); Immature Granulocyte Absolute 0.01 K/mm3 (0.00-0.031); Immature Granulocyte Percent A 0.1 % (0-0.5); Lymphocytes Absolute Auto 3.62 K/mm3 (0.9-3.2); Lymphocytes Percent Auto 45.9 % (18.3-44.2); Mean Corpuscular HGB Conc 32.2 g/dl (32-36); Mean Corpuscular Hemoglobin 28.9 pg (26-34); Mean Corpuscular Volume 89.8 fl (80-100); Mean Platelet Volume 9.2 fl (7.4-10.4); Monocytes Absolute Auto 0.7 K/mm3 (0.1-0.6); Monocytes Percent Auto 8.4 % (2.6-8.5); Neutrophils Absolute Auto 3.4 K/mm3 (1.3-6.7); Neutrophils Percent Auto 42.7 % (45.5-73.1); Platelet Count Result 311 k/mm3 (150-375); Red Blood Count 4.88 M/mm3 (4.6-6.20); Red Cell Distribution Width 14.5 % (11.5-14.5); White Blood Count 7.9 K/mm3 (4.5-10.0)
[2023-07-05 02:38] LABS: Alanine Aminotransferase 16 U/L (6-50); Albumin Level 4.4 g/dL (3.5-5.1); Alkaline Phosphatase 83 U/L (38-126); Anion Gap 6 mmol/L (8-16); Aspartate Amino Transferase 27 U/L (17-59); Bilirubin,Total 0.6 mg/dL (0.2-1.3); Blood Urea Nitrogen 3 mg/dL (9-20); Calcium 9.3 mg/dL (8.4-10.2); Carbon Dioxide 29 mmol/L (22-30); Chloride 103 mmol/L (98-107); Estimated CRCL calculation 124 ml/min; Estimated Glomerular Filt Rate > 60; Glucose 103 mg/dL (65-110); Lipase 162 U/L (23-300); Magnesium 2.1 mg/dL (1.6-2.3); Potassium 3.8 mmol/L (3.4-5.0); Sodium 138 mmol/L (137-145)
[2023-07-05 02:39] LABS: Partial Thromboplastin Time 28.3 SECONDS (22.3-36.8)
[2023-07-05 02:50] LABS: Troponin I < 0.012 ng/mL (0.000-0.034)
[2023-07-05] MEDS: SODIUM CHLORIDE 0.9% IV 1,000 ML 125 ML IV CONT (04:02)
--- NOTE | 2023-07-05 06:47 | ADMGEN ---
This patient, Antwan Will, was admitted to 3 Med Surg Room 310-01. Patient/family oriented to hospital policies and general routines including ID bracelet, bed and alarms, visiting hours, pain management, procedures, bathroom and other care routines, personal items, smoking policy, room service/diet, and visiting hours. Information on how to activate the Rapid Response Team has been discussed. Patient/Family are encouraged to report perceived risks to care and to ask questions if they do not understand what they are told or what they should do.
--- NOTE | 2023-07-05 07:51 | PM.IMHP ---
H&P: HPI History of Present Illness Date/Time: 07/05/23 07:51 Chief Complaint: Difficulty with swallowing Narrative: 43 years old gentleman with history of Dubose esophagus, esophagus stricture multiple esophagus dilatation present ED with a chief complaint of food stuck. he ate some mashed potatoes tonight and felt like it got stuck and he is having progressive difficulty keeping things down feeling like they are getting stuck even with fluids now. Patient states he has been having progressive sensation of things getting stuck near xiphoid process is worried points to over the past couple months, admits to a 30 lb weight loss over the past couple months.? Patient denies chest pain, difficulty breathing, fever, recent injuries, recent illness, diarrhea, vomiting, new or change medications.? Upon arrival in the ED, patient was afebrile, blood pressure stable. I reviewed chest x-ray, it does not show acute cardiopulmonary issues, EKG shows sinus rhythm no specific ST T-wave changes Review of Systems Review of Systems: ROS negative except above PMFSH Past Medical History Medical History (Updated 07/05/23 @ 13:19 by Eulalio Andres MD) Esophageal stricture H/O thoracic outlet syndrome High cholesterol Hypertension Thoracic outlet syndrome Weight loss Surgical History Surgical History History of thoracic surgery Family History Family History Mother Diabetes mellitus Heart disease Heart problem Alzheimer's dementia Father Alzheimer's dementia [place] Other Endometrial cancer Social History Social History Social History: Has tried to quit smoking of the last few months and is down to 2 to 3 cigarettes a day Smoking packs per day: 1 Smoking cigarettes per day: 20.0 Years smoked: 27 Smoking pack-years: 27.00 Smoking status: Current every day smoker Tobacco type: cigarettes Second hand tobacco smoke exposure: Yes Additional smoking assessment comments: down to 2 cigs per day, working on quitting Alcohol intake: current Drinks per week: 6 Alcohol use details: 5-6 beers once a week on saturdays Substance use: never Substance use type: does not use Do You Feel Safe in your Home?: Yes Lack of Transportation: No Lack of Food: Never True Current Housing: I Have Housing Concerned About Future Housing: No Difficulty Paying Gas/Electric Bills: No Difficulty Paying for Meds: No Currently Unemployed: No Education: High School Diploma/GED Difficulty w/ Childcare or Family Care: No Living arrangements: with family Spiritual care concerns: No Meds Home Medications and Allergies Home Medications Medication Instructions Recorded Confirmed Type lisinopril 10 mg tablet 10 mg PO DAILY 09/10/20 07/05/23 History aspirin 81 mg chewable tablet 81 mg PO DAILY@0800 #30 tabs 01/14/21 07/05/23 Rx (Children's Aspirin) inhalational spacing device (Space #1 ea 05/08/22 07/05/23 Rx Chamber) esomeprazole magnesium 40 mg 40 mg PO DAILY 07/21/22 07/05/23 History capsule,delayed release (Nexium) pregabalin 25 mg capsule 25 mg TID 07/21/22 07/05/23 History atorvastatin 40 mg tablet 80 mg PO DAILY 30 days #60 tabs 07/24/22 07/05/23 Rx ticagrelor 90 mg tablet (Brilinta) 90 mg PO Q12HR 30 days #60 tabs 07/24/22 07/05/23 Rx metoprolol tartrate 25 mg tablet 25 mg PO BID 07/05/23 07/05/23 History Allergies Allergy/AdvReac Type Severity Reaction Status Date / Time ciprofloxacin Allergy Severe Swelling Verified 05/31/23 11:51 of Lip/Tongue/Throat Latex, Natural Rubber Allergy Unknown Rash Verified 05/31/23 11:51 Vital Signs Vital Signs - 24 hr 07/04/23 20:16 07/05/23 00:13 07/05/23 00:13 Temperature 97.6 F 98 F Pulse Rate 65 72 Respiratory Rate 17 16 Bloo
--- NOTE | 2023-07-05 13:15 | WPDGICN ---
Assessment and Plan Assessment and plan (1) Esophageal dysphagia: Code(s): R13.19 - Other dysphagia Status: Acute Assessment and Plan: will proceed with egd tomorrow, worrisome symptoms and concerning for malignancy (2) Esophageal stricture: Code(s): K22.2 - Esophageal obstruction Status: Acute Assessment and Plan: will assess with EGD, ? stricture/esophagitis/malignancy (3) CAD (coronary artery disease): Code(s): I25.10 - Atherosclerotic heart disease of [place] coronary artery without angina pectoris Status: Acute (4) Hypertension: Code(s): I10 - Essential (primary) hypertension Status: Acute (5) Tobacco abuse: Code(s): Z72.0 - Tobacco use Status: Acute Assessment and Plan: quit smoking (6) Weight loss: Code(s): R63.4 - Abnormal weight loss Status: Acute GI Consult Note Consult date/time: 07/05/23 13:15 Reason for consult: dysphagia, weight loss HPI: Antwan Will is a 43 year old male with history of Dubose esophagus, esophagus stricture with previous dilatation but last EGD per patient in 2012. He came with progressive dysphagia, he says that last few months more difficult with eating and noted weight loss but since last week not able to eat and has been trying mashed potatoes but got stuck, now hardly able to drink liquids. HE has been using nexium, denies nsaid's. He has HTN and CAD, he is smoker, recently unable to swallow his medications. Review of Systems Constitutional: Constitutional: Reports weight loss Eyes: Eyes: Denies blurry vision ENT: Reports Normal hearing present Cardiovascular: Cardiovascular: Denies leg edema Respiratory: Respiratory: Denies cough Gastrointestinal: Comments: dysphagia Genitourinary: Genitourinary: Denies dysuria Musculoskeletal: Musculoskeletal: Denies neck pain Integumentary/Breasts: Skin/Breast: Denies rash Neurologic: Denies Abnormal speech present Psychiatric: Psychiatric: Denies behavioral changes [facility] Past Medical History Medical History (Updated 07/05/23 @ 13:19 by Eulalio Andres MD) Esophageal stricture H/O thoracic outlet syndrome High cholesterol Hypertension Thoracic outlet syndrome Weight loss Surgical History Surgical History History of thoracic surgery Family History Family History Mother Diabetes mellitus Heart disease Heart problem Alzheimer's dementia Father Alzheimer's dementia [place] Other Endometrial cancer Social History Social History Social History: Has tried to quit smoking of the last few months and is down to 2 to 3 cigarettes a day Smoking packs per day: 1 Smoking cigarettes per day: 20.0 Years smoked: 27 Smoking pack-years: 27.00 Smoking status: Current every day smoker Tobacco type: cigarettes Second hand tobacco smoke exposure: Yes Additional smoking assessment comments: down to 2 cigs per day, working on quitting Alcohol intake: current Drinks per week: 6 Alcohol use details: 5-6 beers once a week on saturdays Substance use: never Substance use type: does not use Do You Feel Safe in your Home?: Yes Lack of Transportation: No Lack of Food: Never True Current Housing: I Have Housing Concerned About Future Housing: No Difficulty Paying Gas/Electric Bills: No Difficulty Paying for Meds: No Currently Unemployed: No Education: High School Diploma/GED Difficulty w/ Childcare or Family Care: No Living arrangements: with family Spiritual care concerns: No Meds Home Medications and Allergies Home Medications Medication Instructions Recorded Confirmed Type lisinopril 10 mg tablet 10 mg PO DAILY 09/10/20 07/05/23 History aspirin 81 mg chewable table
[2023-07-06] VITALS (8 sets, daily range): BP systolic 94–125; BP diastolic 34–77; PULSE 50–72; RESP 16–18; TEMP 35.9–36.6; O2SAT 100
[2023-07-06] MEDS: SODIUM CHLORIDE 0.9% IV 1,000 ML 125 ML IV CONT (08:20)
--- NOTE | 2023-07-06 08:46 | PM.IMPN ---
Progress Note: A&P Assessment and Plan (1) Esophageal dysphagia: Code(s): R13.19 - Other dysphagia Status: Acute (2) Hypertension: Code(s): I10 - Essential (primary) hypertension Status: Acute (3) Dyslipidemia: Code(s): E78.5 - Hyperlipidemia, unspecified Status: Acute (4) CAD (coronary artery disease): Code(s): I25.10 - Atherosclerotic heart disease of [place] coronary artery without angina pectoris Status: Acute Plan Esophageal dysphagia History of Dubose esophagus, possible esophageal stricture. Patient has history of multiple social dilatation Patient cannot tolerate diet Keep patient p.o. Start fluid resuscitation Consult GI for evaluation treatment 07/06: atient underwent EGD, esophageal dilatation. Patient tolerated diet well, denied chest pain, shortness of breath, abdomen pain, nausea vomiting. Continue Protonix 40 mg b.i.d. p.o., Carafate 1 g t.i.d. and q.h.s. per GI recommendation History of CAD Patient denies chest pain EKG shows sinus rhythm no specific ST-T changes Patient cannot tolerate diet, hold Brilinta and aspirin p.o. resume with medications wound is okay for GI 07/06: Resume home medication at discharge Hypertension Hold lisinopril and metoprolol p.o. will provide hydralazine IV p.r.n. with parameters during p.o. 07/06: Resume home medication at discharge Subjective Date/time seen: 07/06/23 08:46 Interval history: Patient underwent EGD, esophageal dilatation. Patient tolerated diet well, denied chest pain, shortness of breath, abdomen pain, nausea vomiting. Exam Narrative: GENERAL: Pleasant, in no acute distress. Well-nourished. - EYES: EOMI. Anicteric. - HENT: Moist mucous membranes. - LUNGS: Clear to auscultation bilaterally, no wheezing, rhonchi, or rales. - CARDIOVASCULAR: Regular rate and rhythm. No murmur. No JVD. - ABDOMEN: Soft, non-tender and non-distended. No palpable masses. - EXTREMITIES: No edema. Peripheral pulses 2+. Non-tender. - NEUROLOGIC: No focal neurological deficits. CN II-XII grossly intact. - PSYCHIATRIC: Awake, Alert and oriented x 3. Appropriate mood and affect. - SKIN: No rashes or lesions. Warm. - LYMPH: No cervical lymphadenopathy. Objective Data Vital Signs Vital Signs: Vital Signs - 24 hr 07/05/23 14:00 07/05/23 20:00 07/05/23 21:50 Temperature 98.1 F 96.6 F L Pulse Rate 95 53 L Respiratory Rate 17 18 Blood Pressure 122/68 117/55 L Pulse Oximetry 100 100 100 Oxygen Delivery Room Air 07/05/23 21:50 07/06/23 06:15 Temperature 96.6 F L 96.6 F L Pulse Rate 53 L 69 Respiratory Rate 18 18 Blood Pressure 117/55 L 109/64 Pulse Oximetry 100 100 Oxygen Delivery Intake/Output Intake/Output: Intake & Output 07/03/23 07/04/23 07/05/23 07/06/23 23:59 23:59 23:59 23:59 Intake Total 3500 1070 Balance 3500 1070 Meds/Results Medications: Active Medications Generic Name Dose Route Start Last Admin Trade Name Freq PRN Reason Stop Dose Admin Sodium Chloride 1,000 mls @ 125 mls/hr 07/05/23 03:35 07/06/23 08:21 Normal Saline Iv IV CONT Not Given .Q8H [facility] Radiology Results: ITS Impressions Chest X-Ray 07/05/23 07:08 IMPRESSION: 1. No acute cardiopulmonary disease.
[2023-07-06] MEDS: LACTATED RINGERS 1,000 ML 150 ML IV CONT (10:57)
--- NOTE | 2023-07-06 11:09 | WPDANESEPPF ---
Anes - Initial Pre Proc Eval Procedure: Operation Date: 07/06/23 14:30 Proposed Procedures p Esophagogastroduodenoscopy - Eulalio Andres MD Date/Time: 07/06/23 11:09 Surgeon: Oseas Long MD Pre Op Diagnosis: esophageal dysphagia Patient Data Age: 43 Gender: M Height: 1.83 m Weight: 75 kg Last Vital Signs Temp 97.1 F L 07/06/23 10:54 Pulse 61 07/06/23 10:54 Resp 17 07/06/23 10:54 BP 125/68 07/06/23 10:54 Pulse Ox 100 07/06/23 10:54 O2 Del Method Room Air 07/06/23 10:54 Allergies Allergy/AdvReac Type Severity Reaction Status Date / Time ciprofloxacin Allergy Severe Swelling Verified 07/06/23 10:50 of Lip/Tongue/Throat Latex, Natural Rubber Allergy Unknown Rash Verified 07/06/23 10:50 Home Medications Medication Instructions Recorded Confirmed Type lisinopril 10 mg tablet 10 mg PO DAILY 09/10/20 07/05/23 History aspirin 81 mg chewable tablet 81 mg PO DAILY@0800 #30 tabs 01/14/21 07/05/23 Rx (Children's Aspirin) inhalational spacing device (Space #1 ea 05/08/22 07/05/23 Rx Chamber) esomeprazole magnesium 40 mg 40 mg PO DAILY 07/21/22 07/05/23 History capsule,delayed release (Nexium) pregabalin 25 mg capsule 25 mg TID 07/21/22 07/05/23 History atorvastatin 40 mg tablet 80 mg PO DAILY 30 days #60 tabs 07/24/22 07/05/23 Rx ticagrelor 90 mg tablet (Brilinta) 90 mg PO Q12HR 30 days #60 tabs 07/24/22 07/05/23 Rx metoprolol tartrate 25 mg tablet 25 mg PO BID 07/05/23 07/05/23 History Patient hx anesthesia problems: none Family hx anesthesia problems: none Results Review: All pre-operative results and documents have been reviewed as part of the pre-operative evaluation. [facility] Past Medical History Medical History (Updated 07/05/23 @ 13:19 by Eulalio Andres MD) Esophageal stricture H/O thoracic outlet syndrome High cholesterol Hypertension Thoracic outlet syndrome Weight loss Surgical History Surgical History History of thoracic surgery Family History Family History Mother Diabetes mellitus Heart disease Heart problem Alzheimer's dementia Father Alzheimer's dementia [place] Other Endometrial cancer Social History Social History Social History: Has tried to quit smoking of the last few months and is down to 2 to 3 cigarettes a day Smoking packs per day: 1 Smoking cigarettes per day: 20.0 Years smoked: 27 Smoking pack-years: 27.00 Smoking status: Current every day smoker Tobacco type: cigarettes Second hand tobacco smoke exposure: Yes Additional smoking assessment comments: down to 2 cigs per day, working on quitting Alcohol intake: current Drinks per week: 6 Alcohol use details: 5-6 beers once a week on saturdays Substance use: never Substance use type: does not use Do You Feel Safe in your Home?: Yes Lack of Transportation: No Lack of Food: Never True Current Housing: I Have Housing Concerned About Future Housing: No Difficulty Paying Gas/Electric Bills: No Difficulty Paying for Meds: No Currently Unemployed: No Education: High School Diploma/GED Difficulty w/ Childcare or Family Care: No Living arrangements: with family Spiritual care concerns: No Anes - Eval Final PreProcedure Day of Procedure 07/06/23 11:09 Patient weight: normal Heart: regular rate and rhythm Lungs: clear to auscultation Airway: Mallampati scale class II Neurological: alert and oriented Last oral intake: >/= 8 hours ASA classification: III Emergent: no Anesthetic plan: proceed Anesthesia type and monitoring: general GIVS and standard monitoring Results Review: All pre-operative results and documents have been reviewed as part of the pre-operative evaluation. Informed Consent: The patient
--- NOTE | 2023-07-06 15:04 | PM.DS ---
DS: Admitting Diagnosis Discharge Date 07/06/23 Admitting Diagnosis ?Code(s): R13.19 - Other dysphagia ?Status:?Acute (2) Hypertension: ?Code(s): I10 - Essential (primary) hypertension ?Status:?Acute (3) Dyslipidemia: ?Code(s): E78.5 - Hyperlipidemia, unspecified ?Status:?Acute (4) CAD (coronary artery disease): ?Code(s): I25.10 - Atherosclerotic heart disease of [place] coronary artery without angina pectoris ?Status:?Acute DS: Discharge Diagnosis Discharge Diagnosis (1) Esophageal dysphagia: Code(s): R13.19 - Other dysphagia Status: Acute (2) Hypertension: Code(s): I10 - Essential (primary) hypertension Status: Acute (3) Dyslipidemia: Code(s): E78.5 - Hyperlipidemia, unspecified Status: Acute (4) CAD (coronary artery disease): Code(s): I25.10 - Atherosclerotic heart disease of [place] coronary artery without angina pectoris Status: Acute DS: Summary Hospital Course Hospital Course: 43 years old gentleman with history of Dubose esophagus, esophagus stricture multiple esophagus dilatation present ED with a chief complaint of food stuck. ? he ate some mashed potatoes tonight and felt like it got stuck and he is having progressive difficulty keeping things down feeling like they are getting stuck even with fluids now.? Patient states he has been having progressive sensation of things getting stuck near xiphoid process is worried points to over the past couple months, admits to a 30 lb weight loss over the past couple months.? Patient denies chest pain, difficulty breathing, fever, recent injuries, recent illness, diarrhea, vomiting, new or change medications.? Upon arrival in the ED, patient was afebrile, blood pressure stable.? Chest x-ray did not show acute cardiopulmonary issues, EKG showed sinus rhythm no specific ST T-wave changes The following med issues have been addressed during hospitalization Esophageal dysphagia History of Dubose esophagus, possible esophageal stricture. Patient has history of multiple social dilatation Patient cannot tolerate diet Keep patient p.o. Start fluid resuscitation Consult GI for evaluation treatment 07/06: atient underwent EGD, esophageal dilatation. Patient tolerated diet well, denied chest pain, shortness of breath, abdomen pain, nausea vomiting. Continue Protonix 40 mg b.i.d. p.o., Carafate 1 g t.i.d. and q.h.s. per GI recommendation History of CAD Patient denies chest pain EKG shows sinus rhythm no specific ST-T changes Patient cannot tolerate diet, hold Brilinta and aspirin p.o. resume with medications wound is okay for GI 07/06: Resume home medication at discharge Hypertension Hold lisinopril and metoprolol p.o. will provide hydralazine IV p.r.n. with parameters during p.o. 07/06: Resume home medication at discharge Time Spent with Patient Time attestation: Total time spent providing and/or coordinating discharge services: Exam Narrative: GENERAL: Pleasant, in no acute distress. Well-nourished. - EYES: EOMI. Anicteric. - HENT: Moist mucous membranes. - LUNGS: Clear to auscultation bilaterally, no wheezing, rhonchi, or rales. - CARDIOVASCULAR: Regular rate and rhythm. No murmur. No JVD. - ABDOMEN: Soft, non-tender and non-distended. No palpable masses. - EXTREMITIES: No edema. Peripheral pulses 2+. Non-tender. - NEUROLOGIC: No focal neurological deficits. CN II-XII grossly intact. - PSYCHIATRIC: Awake, Alert and oriented x 3. Appropriate mood and affect. - SKIN: No rashes or lesions. Warm. - LYMPH: No cervical lymphadenopathy. DS: Data Data Completed and Pending Pending studies at discharge: Pending at discharge 07/06/23 11:23 Surgical [PTH] Routine Discharge Plan Discharge Attending physician on discharge: Maria R De León Consulting providers: Eulalio Andres Discharging Clinician: Maria R De León Patient Disposition: Home, Self-Car
== END 2023-07-06 16:00 | disposition home or self-care (01) ==
LOC: ANHED 07-05 03:31 → ANH3MEDSUR 07-05 13:15
PROVIDERS: Internal Medicine Gastroenterology; Admitting Provider Internal Medicine; Emergency Provider Student in an Organized Health Care Education/Training Program; Visit Provider Hospitalist
PROC: 0DJ08ZZ Inspection of Upper Intestinal Tract, Via Natural or Artificial Opening Endoscopic (ICD-10-PCS; CPT 43235; principal; 2023-07-06 14:30)
DX: C15.9 Malignant neoplasm of esophagus, unspecified (principal); K31.A19 Gastric intestinal metaplasia without dysplasia, unspecified site; K22.2 Esophageal obstruction; K44.9 Diaphragmatic hernia without obstruction or gangrene; I10 Essential (primary) hypertension; K21.9 Gastro-esophageal reflux disease without esophagitis; E78.5 Hyperlipidemia, unspecified; I25.10 Atherosclerotic heart disease of native coronary artery without angina pectoris; R94.31 Abnormal electrocardiogram [ECG] [EKG]; F17.210 Nicotine dependence, cigarettes, uncomplicated; F10.90 Alcohol use, unspecified, uncomplicated; Z79.82 Long term (current) use of aspirin; Z79.02 Long term (current) use of antithrombotics/antiplatelets; Z79.899 Other long term (current) drug therapy
CPT/HCPCS: 43239; 43249; 36415; 71046; 80053; 83690; 83735; 84484; 85025; 85610; 85730; 86850; 86900; 86901; 88305; 88342; 93005; 96361; 96374; 99285; C1726; G0378; J2704; J7030; J7120

== ENCOUNTER 2023-08-02 09:11 | Outpatient (CLI) | payer OTHER, SELFPAY ==
--- NOTE | ~2023-08-02 | PE_ITS ---
EXAMINATION: PET skull to mid thigh DATE: 08/02/2023 11:23 INDICATION: Esophageal adenocarcinoma TECHNIQUE: Blood glucose level was 94 mg/dL. 10.905 mCi of 18-fluorodeoxyglucose (18-FDG) was adminis tered i.v. Low dose computed tomography (CT) images were acquired from the base of the brain to the p roximal thighs for attenuation correction and anatomic localization. Positron emission tomography (PE T) images were acquired in the same distribution beginning 55 minutes after injection. Images includi ng fused PET/CT images were reconstructed in axial, coronal, and sagittal planes. Automated exposure control technique was employed. The dose-length product was 701.83mGy-cm. COMPARISON: None FINDINGS: Head/neck: There is symmetric increased activity in the oral cavity, palatine tonsils, parotid glands, submandi bular glands, laryngeal muscles and ocular muscles without CT correlate, likely physiologic. No patho logically enlarged cervical lymphadenopathy or suspicious foci of increased FDG uptake in the visuali zed head or neck. Chest: Lungs are clear with no suspicious pulmonary nodules, pneumonia, pulmonary edema or pleural effusion. Heart size is normal. Atherosclerotic coronary artery calcifications and possibly also coronary ronal ry stenting. No pericardial effusion. There is circumferential wall thickening in the distal esophagu s with prominent increased associated FDG uptake with maximal SUV of 44.3 consistent with reported hi story of esophageal adenocarcinoma. This begins at the level of the gastroesophageal junction and ext ends approximately 5-6 cm craniocaudally. No pathologically enlarged or FDG avid thoracic lymphadenop athy. Abdomen/pelvis/proximal thighs: Physiologic renal accumulation and excretion of FDG activity in the kidneys, bladder and along portio ns of ureters. Normal degree and heterogenous pattern of increased uptake throughout the liver. There is an approximately 1-1.5 cm focus of mildly increased uptake in the left hepatic lobe with maximal SUV of 3.5 which appears slightly more prominent than the surrounding liver which is without radiolog ic correlate on the current CT imaging or prior contrast enhanced CT from 05/31/2023. The gallbladder , pancreas, spleen and bilateral adrenal glands are normal. Mild uptake scattered throughout the ilana ls without radiologic correlate, also likely physiologic. Normal appendix. No other abnormal foci of increased FDG uptake or pathologically enlarged lymphadenopathy in the abdomen, pelvis or proximal th ighs. Musculoskeletal: No suspicious lytic, blastic or FDG avid lymphadenopathy. IMPRESSION: 1. Wall thickening and prominent FDG uptake along a 5-6 cm long segment of the distalmost esophagus c onsistent with provided history of esophageal cancer. 2. Small focus of equivocal mild increased uptake in the left hepatic lobe relative to the surroundin g liver but without evident correlate on the current or prior contrast enhanced CT imaging which does raise some suspicion for metastatic disease. Would consider further evaluation with multiphase pre a nd postcontrast MRI. 2. No other lesions suspicious for metastatic disease. Reviewed, dictated and finalized at location A. R SHEETER IMPRESSION: 1. Wall thickening and prominent FDG uptake along a 5-6 cm long segment of the distalmost esophagus consistent with provided history of esophageal cancer. 2. Small focus of equivocal mild increased uptake in the left hepatic lobe rela tive to the surrounding liver but without evident correlate on the current or p rior contrast enhanced CT imaging which does raise some suspicion for metastati c disease. Would consider further evaluation with multiphase pre and postcontra st MRI. 2. No other lesions suspicious for metastatic disease.
[2023-08-02 09:39] LABS: Glucose Point of Care 94 mg/dl (65-105)
== END 2023-08-02 09:12 | disposition home or self-care (01) ==
LOC: ANHIMG 09:13
PROVIDERS: Visit Provider Internal Medicine Hematology & Oncology
DX: C15.5 Malignant neoplasm of lower third of esophagus (principal)
CPT/HCPCS: 78815; A9552

== ENCOUNTER 2023-08-12 13:36 | Outpatient (CLI) | payer OTHER, SELFPAY ==
--- NOTE | ~2023-08-12 | MR_ITS ---
EXAMINATION: MR abdomen wo/w con INDICATION: Liver mass, esophageal adenocarcinoma TECHNIQUE: Coronal SSFSE ARC, WATER:coronal LAVA-FLEX, Coronal 2D FIESTA FatSat, Axial SSFSE BH ARC, Axial 3D DualEcho BH, Axial SSFSE-IR, Axial DWI b=500, Axial 2D FIESTA FatSat, pre and dynamic postco ntrast Axial LAVA ARC, postcontrast Coronal In and Opposed phase LAVA FLEX COMPARISON: 05/31/2023; PET/CT, 08/02/2023 CONTRAST: Multihance, 15 cc FINDINGS: The liver is unremarkable. No suspicious correlate is identified for the equivocal area of increased FDG uptake described on the comparison PET/CT. Cysts of the spleen measure up to 1.3 cm. Th e pancreas and adrenal glands are normal. There is appears to be a small amount of sludge or stones c ysts of the kidneys measure up to 1.2 cm on the right. There are no pathologically enlarged abdominal lymph nodes. Circumferential wall thickening of the distal esophagus is noted, consistent with clini jordan history of esophageal adenocarcinoma. There are no dilated loops of bowel. No free intraperitonea l fluid is identified. IMPRESSION: 1. No suspicious correlate identified in the liver for the area of equivocal increased FDG uptake on the comparison PET/CT. Reviewed, dictated and finalized at location B. CHIEF IMPRESSION: 1. No suspicious correlate identified in the liver for the area of equivocal in creased FDG uptake on the comparison PET/CT.
== END 2023-08-12 13:37 | disposition home or self-care (01) ==
LOC: ANHIMG 13:37
PROVIDERS: Visit Provider Internal Medicine Hematology & Oncology
DX: R16.0 Hepatomegaly, not elsewhere classified (principal)
CPT/HCPCS: 74183; A9577

== ENCOUNTER 2024-06-13 14:25 | Emergency (ER) | payer OTHER, SELFPAY ==
[2024-06-13 14:38] VITALS: BP 106/64; PULSE 64; RESP 16; TEMP 36.2
--- NOTE | 2024-06-13 15:33 | ED_ITS ---
HPI - URI/Sore Throat General Chief Complaint: Upper Respiratory Infection Stated Complaint: Sore Throat Time Seen by Provider: 06/13/24 14:50 Source: patient Mode of arrival: ambulatory Limitations: no limitations History of Present Illness HPI Narrative: Antwan is a 44-year-old male patient presenting to the clinic today with complaints of sore throat, cough, and chest congestion that started today. He denies any known fevers. Denies any chest pain but feels mildly short of breath. MD elicited complaint: sore throat and nasal congestion Related Data Home Medications ?Medication ?Instructions ?Recorded ?Confirmed ?Last Taken ?Type lisinopril 10 mg tablet 10 mg PO DAILY 09/10/20 07/05/23 07/04/23 09:00 History pregabalin 25 mg capsule 25 mg TID 07/21/22 07/05/23 07/04/23 12:00 History metoprolol tartrate 25 mg tablet 25 mg PO BID 07/05/23 06/13/24 07/04/23 09:00 History atorvastatin 20 mg tablet 20 mg PO QPM 06/13/24 06/13/24 Unknown History mirtazapine 15 mg tablet 15 mg PO Q12H 06/13/24 06/13/24 Unknown History pregabalin 75 mg capsule 75 mg PO 06/13/24 Unknown History Allergies Allergy/AdvReac Type Severity Reaction Status Date / Time ciprofloxacin Allergy Severe Swelling Verified 06/13/24 14:45 of Lip/Tongue/Throat Latex, Natural Rubber Allergy Unknown Rash Verified 06/13/24 14:45 Review of Systems Review of Systems: Pertinent positives per HPI. Patient denies any fever, chills, rash, headache, visual changes, dizziness, chest pain, palpitations, nausea, vomiting, diarrhea, constipation, abdominal pain, or any urinary issues. [facility] Past Medical History Medical History (Updated 06/13/24 @ 15:34 by Davide Huitron APRN) Esophageal cancer Weight loss Esophageal stricture High cholesterol Hypertension H/O thoracic outlet syndrome Thoracic outlet syndrome Surgical History Surgical History History of thoracic surgery Family History Family History Mother Diabetes mellitus Heart disease Heart problem Alzheimer's dementia Father Alzheimer's dementia [place] Other Endometrial cancer Social History Social History Social History: Has tried to quit smoking of the last few months and is down to 2 to 3 cigarettes a day Smoking packs per day: 1 Smoking cigarettes per day: 20.0 Years smoked: 27 Smoking pack-years: 27.00 Smoking status: Current every day smoker Tobacco type: cigarettes Second hand tobacco smoke exposure: Yes Additional smoking assessment comments: down to 2 cigs per day, working on quitting Alcohol intake: current Drinks per week: 6 Alcohol use details: 5-6 beers once a week on saturdays Substance use: never Substance use type: does not use Do You Feel Safe in your Home?: Yes Lack of Transportation: No Lack of Food: Never True Current Housing: I Have Housing Concerned About Future Housing: No Difficulty Paying Gas/Electric Bills: No Difficulty Paying for Meds: No Currently Unemployed: No Education: High School Diploma/GED Difficulty w/ Childcare or Family Care: No Living arrangements: with family Spiritual care concerns: No Comments At the time of my signature, I reviewed and agree with the nursing past medical, surgical, social, and family history. There is no relevant family history pertinent to the patient complaint. Exam Narrative: General: Well-developed, well nourished, in no apparent distress Head: Normocephalic, atraumatic Eyes: Pupils equally round and reactive to light bilaterally, EOM intact, sclera and conjunctive clear, no discharge, lids normal Ears: TMs intact and clear, ear canals clear, no drainage, grossly hearing normal. Nose: Nares patent, clear nasal discharge, no inflammation, no sinus tenderness. Mouth: Oral pharynx without lesions or masses, good dentition, MMM. Neck: Supple, trachea midline, no enlargement of anterior or posterior cervical nodes, no thyroid masses or goiter palpable. Cardio: Regular rate and rhythm, s1 and s2 normal, no murmur appreciated. Resp: Diminished lung sounds in the bases, no rhonchi, rales, wheezing or rubs Course Course Emergency Course: Portions of this record may have been created with voice recognition software. Level of Care: Express Care Visit Vital Signs Vital signs: Vital Signs Temperature 36.2 C L 06/13/24 14:38 Pulse Rate 64 06/13/24 14:38 Respiratory Rate 16 06/13/24 14:38 Blood Pressure 106/64 06/13/24 14:38 Oxygen Delivery Room Air 06/13/24 14:38 Temperature 36.2 C L 06/13/24 14:38 Pulse Rate 64 06/13/24 14:38 Respiratory Rate 16 06/13/24 14:38 Blood Pressure 106/64 06/13/24 14:38 Oxygen Delivery Room Air 06/13/24 14:38 Vital signs reviewed MDM - URI/Sore Throat MDM Narrative Medical decision making narrative: At the time of visit patient is resting comfortably on the exam table. Patient appears to be nontoxic. Labs: COVID, influenza, and strep test were negative. We will send strep culture. Plan: I suspect patient has URI/pharyngitis. Prescription for albuterol inhaler was sent. Supportive measures were discussed with the patient and they voiced understanding discharge instructions and agrees to treatment plan. Return precautions reviewed Differential Diagnosis Differential diagnosis: Likely upper respiratory infection, otitis media, sinusitis, viral infection, bronchitis, influenza, pharyngitis and other (COVID) Lab Data Labs: Lab Results 06/13/24 Range/Units 15:32 POC Grp A Strep Screen Negative (Negative) Discharge Plan Discharge Clinical Impression: Upper respiratory infection Qualifiers: URI type: unspecified URI Qualified Code(s): J06.9 - Acute upper respiratory infection, unspecified Pharyngitis Qualifiers: Pharyngitis/tonsillitis etiology: unspecified etiology Qualified Code(s): J02.9 - Acute pharyngitis, unspecified Patient Disposition: Home, Self-Care Condition: Stable Instructions: Antibiotic Form, Pharyngitis (ED), Upper Respiratory Infection (ED) Additional Instructions: COVID, influenza, and strep test were all negative in the clinic today. We will send strep for culture if this comes back positive we will contact you in place you on antibiotics at that time Take prescription medications only as prescribed-albuterol inhaler Increase fluids and stay well hydrated Tylenol/motrin for pain/fever Flonase and OTC antihistamines as directed Vicks vapor rub to open sinuses Sinus rinses for congestion Cepacol spray, cough drops, throat lozenges, warm tea with honey/lemon, gargle salt water to soothe throat BRAT diet for diarrhea Clear liquids x 24 hours then advance as tolerated for nausea/vomiting Go to the ED if you develop a worsening in your condition- high fever not controlled by Tylenol or Motrin, dehydration, weakness, lethargy, shortness of breath, or chest pain. Follow up with your PCP in 3-5 days if symptoms persist. Patient Language: Persian Prescriptions: New albuterol sulfate 90 mcg/actuation HFA aerosol inhaler 2 puff inhalation Q4-6H PRN (Reason: shortness of breath or wheezing) 30 Days Qty: 8.5 0RF No Action pregabalin 25 mg capsule 25 mg TID atorvastatin 20 mg tablet 20 mg PO QPM mirtazapine 15 mg tablet 15 mg PO Q12H pregabalin 75 mg capsule 75 mg PO (DME) Space Chamber Spacer See Rx Instructions .ROUTE .MEDSUPPLY Qty: 1 0RF Rx Instructions: As directed lisinopril 10 mg Tablet 10 mg PO DAILY Brilinta 90 mg Tablet 90 mg PO Q12HR 30 Days Qty: 60 11RF aspirin [Children's Aspirin] 81 mg Tablet,Chewable 81 mg PO DAILY@0800 Qty: 30 0RF metoprolol tartrate 25 mg tablet 25 mg PO BID sucralfate 100 mg/mL Suspension 1,000 mg PO ACHS Qty: 1000 0RF pantoprazole 40 mg Tablet,Delayed Release (Dr/Ec) 40 mg PO Q12HR Qty: 60 0RF Follow-up/Referrals: Zack,KATRINA Castillo [Primary Care Provider] - Time of Disposition: 15:34 Quality NIHSS Nursing Documentation ED NIHSS nursing documentation: reviewed/agree
[2024-06-13 15:34] LABS: EDSTREPNEGPOS1 Negative (Negative)
== END 2024-06-13 15:45 | disposition home or self-care (01) ==
PROVIDERS: Emergency Provider Nurse Practitioner Family; PCP Nurse Practitioner Family
DX: J06.9 Acute upper respiratory infection, unspecified (principal); J02.9 Acute pharyngitis, unspecified; F17.210 Nicotine dependence, cigarettes, uncomplicated
CPT/HCPCS: 87081; 87880; 99213; G0463

== ENCOUNTER 2024-07-07 11:03 | Emergency (ER) | payer OTHER, SELFPAY ==
[2024-07-07 11:23] VITALS: BP 97/70; PULSE 97; RESP 16; TEMP 36.8; O2SAT 99
--- NOTE | 2024-07-07 11:42 | ED.URI ---
HPI - URI/Sore Throat General Chief Complaint: Upper Respiratory Infection Stated Complaint: cough Time Seen by Provider: 07/07/24 11:32 Source: patient and RN notes reviewed Mode of arrival: ambulatory Limitations: no limitations History of Present Illness HPI Narrative: Patient presents today complaining of cough, nasal congestion, fatigue since yesterday. Denies fever shortness of breath. He has been taking clindamycin for the last couple of days prescribed by his oncologist. Denies history of asthma or COPD. Smokes 2 cigarettes per day. History of esophageal cancer with subsequent resection. States he is currently cancer free. Daughter with similar symptoms. Related Data Home Medications ?Medication ?Instructions ?Recorded ?Confirmed ?Last Taken ?Type metoprolol tartrate 25 mg tablet 25 mg PO BID 07/05/23 06/13/24 07/04/23 09:00 History atorvastatin 20 mg tablet 20 mg PO QPM 06/13/24 06/13/24 Unknown History mirtazapine 15 mg tablet 15 mg PO Q12H 06/13/24 06/13/24 Unknown History pregabalin 75 mg capsule 75 mg PO 06/13/24 Unknown History clindamycin HCl 300 mg capsule mg 07/07/24 Unknown History ezetimibe 10 mg tablet mg 07/07/24 Unknown History ticagrelor 60 mg tablet (Brilinta) mg 07/07/24 Unknown History Allergies Allergy/AdvReac Type Severity Reaction Status Date / Time ciprofloxacin Allergy Severe Swelling Verified 07/07/24 11:11 of Lip/Tongue/Throat Latex, Natural Rubber Allergy Unknown Rash Verified 07/07/24 11:11 Review of Systems Review of Systems: CONSTITUTIONAL: Denies body aches, fever, chills, or sweats.+ fatigue EYES: Denies visual changes, redness, or discharge. ENT: Denies rhinorrhea, sore throat, or otalgia.+ congestion CARDIOVASCULAR: Denies chest pain, palpitations, or edema. RESPIRATORY: Denies dyspnea.+ cough GASTROINTESTINAL: Denies abdominal pain, nausea, vomiting, or diarrhea. GENITOURINARY: Denies dysuria or hematuria. SKIN: Denies rash, itching, or wounds. MUSCULOSKELETAL: Denies back pain, joint pain, or myalgia. NEUROLOGIC: Denies headache, numbness, tingling, or weakness. PSYCH: Denies depression or anxiety. PMFSH Past Medical History Medical History Esophageal cancer Weight loss Esophageal stricture High cholesterol Hypertension H/O thoracic outlet syndrome Thoracic outlet syndrome Surgical History Surgical History History of thoracic surgery Family History Family History Mother Diabetes mellitus Heart disease Heart problem Alzheimer's dementia Father Alzheimer's dementia [place] Other Endometrial cancer Social History Social History Social History: Has tried to quit smoking of the last few months and is down to 2 to 3 cigarettes a day Smoking packs per day: 1 Smoking cigarettes per day: 20.0 Years smoked: 27 Smoking pack-years: 27.00 Smoking status: Current every day smoker Tobacco type: cigarettes Second hand tobacco smoke exposure: Yes Additional smoking assessment comments: down to 2 cigs per day, working on quitting Alcohol intake: current Drinks per week: 6 Alcohol use details: 5-6 beers once a week on saturdays Substance use: never Substance use type: does not use Do You Feel Safe in your Home?: Yes Lack of Transportation: No Lack of Food: Never True Current Housing: I Have Housing Concerned About Future Housing: No Difficulty Paying Gas/Electric Bills: No Difficulty Paying for Meds: No Currently Unemployed: No Education: High School Diploma/GED Difficulty w/ Childcare or Family Care: No Living arrangements: with family Spiritual care concerns: No Comments At time of signature, I have reviewed and agree with nursing past medical, surgical, social and family history unless otherwise noted. Please see nursing chart for further information. There is no relevant family history pertinent to the presenting complaint Exam Narrative: GENERAL: Chronically ill-appearing, well-nourished, and in no acute distress. HEAD: Normocephalic, atraumatic. EYES: EOMI. No redness or drainage. Conjunctivae normal. ENT: Mucous membranes pink and moist. Nares congested. No rhinorrhea. TMs normal bilaterally. Throat normal. Uvula midline. NECK: Normal AROM. Supple. No lymphadenopathy. CHEST: No respiratory distress. Clear to auscultation. HEART: Regular rate and rhythm. No murmur appreciated. EXTREMITIES: Normal range of motion. No edema. SKIN: Warm, dry, no rash. Capillary refill normal. Normal skin turgor. NEURO: No focal deficits. Alert and oriented x3. Gait steady. PSYCH: Normal affect. No signs of depression or anxiety. Course Course Level of Care: Express Care Visit Vital Signs Vital signs: Vital Signs Temperature 98.2 F 07/07/24 11:23 Pulse Rate 97 07/07/24 11:23 Respiratory Rate 16 07/07/24 11:23 Blood Pressure 97/70 L 07/07/24 11:23 Pulse Oximetry 99 07/07/24 11:23 Oxygen Delivery Room Air 07/07/24 11:23 Temperature 98.2 F 07/07/24 11:23 Pulse Rate 97 07/07/24 11:23 Respiratory Rate 16 07/07/24 11:23 Blood Pressure 97/70 L 07/07/24 11:23 Pulse Oximetry 99 07/07/24 11:23 Oxygen Delivery Room Air 07/07/24 11:23 Reviewed MDM - URI/Sore Throat MDM Narrative Medical decision making narrative: COVID and influenza negative. Symptoms likely viral in etiology. Discussed [id number] medication use and duration of illness. No prescription medications indicated at this time. Anticipatory guidance given. ED precautions given. Differential Diagnosis Differential diagnosis: Likely upper respiratory infection, viral infection, bronchitis, influenza and other (COVID-19) Lab Data Attestation: I reviewed the patient's lab results. Labs: Lab Results 07/07/24 Range/Units 11:40 POC Influenza A Ag Negative (Negative) POC Influenza B Ag Negative (Negative) POC SARS CoV-2 Ag Negative (Negative) Critical Care Time Critical Care Time Critical Care Time: No Discharge Plan Discharge Clinical Impression: Viral infection Patient Disposition: Home, Self-Care Condition: Stable Instructions: Viral Syndrome (ED) Additional Instructions: Your symptoms are likely due to a viral illness, which is not treated with antibiotics. Virus symptoms can last for up to 7-10days. Take Tylenol for pain or fever. Rest and stay hydrated. Follow up with your PCP in 7 days if symptoms are not improving. Go to the ER immediately if you develop shortness of breath, difficulty swallowing, or any other concerning symptoms. Patient Language: Kinyarwanda Prescriptions: No Action atorvastatin 20 mg tablet 20 mg PO QPM mirtazapine 15 mg tablet 15 mg PO Q12H pregabalin 75 mg capsule 75 mg PO albuterol sulfate 90 mcg/actuation HFA aerosol inhaler 2 puff inhalation Q4-6H PRN (Reason: shortness of breath or wheezing) 30 Days Qty: 8.5 0RF (DME) Space Chamber Spacer See Rx Instructions .ROUTE .MEDSUPPLY Qty: 1 0RF Rx Instructions: As directed clindamycin HCl 300 mg capsule ezetimibe 10 mg tablet Brilinta 60 mg tablet aspirin [Children's Aspirin] 81 mg Tablet,Chewable 81 mg PO DAILY@0800 Qty: 30 0RF metoprolol tartrate 25 mg tablet 25 mg PO BID sucralfate 100 mg/mL Suspension 1,000 mg PO ACHS Qty: 1000 0RF pantoprazole 40 mg Tablet,Delayed Release (Dr/Ec) 40 mg PO Q12HR Qty: 60 0RF Follow-up/Referrals: Zack,KATRINA Castillo [Primary Care Provider] - Time of Disposition: 11:55
[2024-07-07 11:51] LABS: EDCOVIDSCREEN Negative (Negative); EDINFLUASCREEN Negative (Negative); EDINFLUBSCREEN Negative (Negative)
== END 2024-07-07 12:00 | disposition home or self-care (01) ==
PROVIDERS: Emergency Provider Nurse Practitioner; PCP Nurse Practitioner Family
DX: B34.9 Viral infection, unspecified (principal); Z20.822 Contact with and (suspected) exposure to COVID-19; F17.210 Nicotine dependence, cigarettes, uncomplicated; E78.00 Pure hypercholesterolemia, unspecified; I10 Essential (primary) hypertension; Z85.01 Personal history of malignant neoplasm of esophagus; Z90.49 Acquired absence of other specified parts of digestive tract
CPT/HCPCS: 87426; 87804; 99212; G0463

== ENCOUNTER 2025-03-16 18:57 | Emergency (ER) | payer OTHER, SELFPAY ==
--- NOTE | ~2025-03-16 | XR_ITS ---
Examination: XR orbits min 4V Clinical History: left orbital swelling pain accident punch himself Comparison: None Technique: 4 views orbits Findings/impression: 1. No displaced orbital fracture identified. 2. No radiopaque foreign body. Reviewed, dictated and finalized at location R.
[2025-03-16 19:04] VITALS: BP 104/62; PULSE 75; RESP 17; TEMP 36.8; O2SAT 100
--- NOTE | 2025-03-16 19:16 | ED_ITS ---
HPI - Head Injury General Chief complaint: Head Injury Stated complaint: Swollen L side of face Time Seen by Provider: 03/16/25 19:10 Source: patient Mode of arrival: ambulatory Limitations: no limitations History of Present Illness HPI Narrative: Antwan is a 44-year-old male patient presenting to the clinic today with complaints of headache, swelling, and tenderness to the left lower orbit around 5:00 p.m. today. He reports he was trying to use pull start a leaf blower and the string broke any accidentally hit himself in the left cheek area. Is complaining of swelling and tenderness just below over the left orbit. Denies any eye injury, eye pain, visual changes, blurry vision, or discharge coming from the eye. Has not taken any medications for his symptoms. States the area continues to swell. Does take a blood thinner-Brilinta Related Data Home Medications ?Medication ?Instructions ?Recorded ?Confirmed ?Last Taken ?Type metoprolol tartrate 25 mg tablet 25 mg PO BID 07/05/23 06/13/24 07/04/23 09:00 History atorvastatin 20 mg tablet 20 mg PO QPM 06/13/24 Unknown History mirtazapine 15 mg tablet 15 mg PO Q12H 06/13/2406/13 Unknown History pregabalin 75 mg capsule 75 mg PO 06/13/24 Unknown H istory ezetimibe 10 mg tablet mg 07/07/24 Unknown History ticagrelor 60 mg tablet (Brilinta) mg 07/07/24 Unknow n History Allergies Allergy/AdvReac Type Severity Reaction Status Date / Time ciprofloxacin Allergy Severe Swelling Verified 03/16/25 19:09 of Lip/Tongue/Throat Latex, Natural Rubber Allergy Unknown Rash Verified 03/16/25 19:09 Review of Systems Review of Systems: Pertinent positives per HPI. Patient denies any fever, chills, rash, visual changes, dizziness, cough, runny nose, sore throat, shortness of breath, chest pain, palpitations, nausea, vomiting, diarrhea, constipation, abdominal pain, or any urinary issues. [facility] Past Medical History Medical History Esophageal cancer Weight loss Esophageal stricture High cholesterol Hypertension H/O thoracic outlet syndrome Thoracic outlet syndrome Surgical History Surgical History History of thoracic surgery Family History Family History Mother Diabetes mellitus Heart disease Heart problem Alzheimer's dementia Father Alzheimer's dementia [place] Other Endometrial cancer Social History Social History Social History: Has tried to quit smoking of the last few months and is down to 2 to 3 cigarettes a day Smoking packs per day: 1 Smoking cigarettes per day: 20.0 Years smoked: 27 Smoking pack-years: 27.00 Smoking status: Current every day smoker Tobacco type: cigarettes Second hand tobacco smoke exposure: Yes Additional smoking assessment comments: down to 2 cigs per day, working on quitting Alcohol intake: current Drinks per week: 6 Alcohol use details: 5-6 beers once a week on saturdays Substance use: never Substance use type: does not use Do You Feel Safe in your Home?: Yes Lack of Transportation: No Lack of Food: Never True Current Housing: I Have Housing Concerned About Future Housing: No Difficulty Paying Gas/Electric Bills: No Difficulty Paying for Meds: No Currently Unemployed: No Education: High School Diploma/GED Difficulty w/ Childcare or Family Care: No Living arrangements: with family Spiritual care concerns: No Comments At the time of my signature, I reviewed and agree with the nursing past medical, surgical, social, and family history. There is no relevant family history pertinent to the patient complaint. Exam Narrative: General: Well-developed, well nourished, in no apparent distress Head: Normocephalic, atraumatic Eyes: Pupils equally round and reactive to light bilaterally, EOM intact bilaterally, sclera and conjunctive clear, no discharge, swelling/bruising noted to the left lower orbit with tenderness to palpation, no step-off deformity Ears: TMs intact and clear, ear canals clear, no drainage, grossly hearing normal. Nose: Nares patent, no discharge, no inflammation, no sinus tenderness. Mouth: Oropharynx without lesions or masses, good dentition, MMM. Neck: Supple, trachea midline, no enlargement of anterior or posterior cervical nodes, no thyroid masses or goiter palpable. Cardio: Regular rate and rhythm, s1 and s2 normal, no murmur appreciated. Resp: Clear to auscultation bilaterally anteriorly and posteriorly, no rhonchi, rales, wheezing or rubs Course Course Emergency Course: Portions of this record may have been created with voice recognition software. Level of Care: Express Care Visit Vital Signs Vital signs: Vital Signs Temperature 36.8 C 03/16/25 19:04 Pulse Rate 75 03/16/25 19:04 Respiratory Rate 17 03/16/25 19:04 Blood Pressure 104/62 03/16/25 19:04 Pulse Oximetry 100 03/16/25 19:04 Oxygen Delivery Room Air 03/16/25 19:04 Temperature 36.8 C 03/16/25 19:04 Pulse Rate 75 03/16/25 19:04 Respiratory Rate 17 03/16/25 19:04 Blood Pressure 104/62 03/16/25 19:04 Pulse Oximetry 100 03/16/25 19:04 Oxygen Delivery Room Air 03/16/25 19:04 Vital signs reviewed MDM - Head Injury MDM Narrative Medical decision making narrative: At the time of visit patient is resting comfortably on the exam table. Patient appears to be nontoxic. Complaints of swelling and tenderness to the left lower orbit around 5:00 p.m. today. He reports he was trying to use pull start a leaf blower and the string broke any accidentally hit himself in the left cheek area. Is complaining of swelling and tenderness just below over the left orbit. Denies any eye injury, eye pain, visual changes, blurry vision, or discharge coming from the eye. Has not taken any medications for his symptoms. States the area continues to swell. On exam patient has pain and swelling to the left lower orbit, no obvious step-off deformity, extraocular eye movements intact, no visual changes. X-ray of the left orbit was ordered Diagnostics: X-ray of the orbits was negative for any sign of fracture or malalignment. Plan: I suspect patient has a left orbital contusion. No step-off deformity and has normal extraocular eye movements. Supportive measures were discussed with the patient and they voiced understanding discharge instructions and agrees to treatment plan. Return precautions reviewed Differential Diagnosis Differential diagnosis: Likely closed head injury and other (Contusion, eye injury, orbital fracture) Imaging Data Radiologist's impression: [facility] ([facility] [address] [place] [address] XRay Report Signed Patient: Antwan Will : 1980 MR#: [id number] Age: 44 Acct:[id number] Loc: [facility] ADM Date: 03/16/25Attending Dr: Ordering Physician: Davide Huitron APRN Date of Service: 03/16/25 Procedure(s): XR orbits min 4V Accession Number(s): [id number] cc: Zack, Anna RUCKERN; Davide Huitron APRN~ Examination: XR orbits min 4V Clinical History: left orbital swelling pain accident punch himself Comparison: None Technique: 4 views orbits Findings/impression: 1. No displaced orbital fracture identified. 2. No radiopaque foreign body. Reviewed, dictated and finalized at location R. Please be advised this is a medical document. It is intended for [id number] communication. It is written in medical language and may contain unfamiliar abbreviations or verbiage. Medical documents are intended to carry relevant information, facts as evident, and the clinical opinion of the practitioner at the time of the encounter. This report may have been done utilizing a voice recognition system. Attempts have been made to correct errors. However, there may be uncorrected grammatical, spelling, and recognition errors present. The file time of this note does not necessarily represent the time of service. Dictated By: Jose Srinivasan MD 03/16/251953 Signed By: <Electronically signed by Jose Srinivasan MD in OV> 03/16/251954 Discharge Plan Discharge Clinical Impression: Contusion of left orbit Qualifiers: Encounter type: initial encounter Qualified Code(s): S05.12XA - Contusion of eyeball and orbital tissues, left eye, initial encounter Headache Qualifiers: Headache type: post-traumatic Headache chronicity pattern: acute headache Intractability: intractable Qualified Code(s): G44.311 - Acute post-traumatic headache, intractable Patient Disposition: Home Condition: Stable Instructions: Antibiotic Form, Black Eye (ED), Acute Headache (ED), Contusion in Adults (ED) Additional Instructions: X-rays negative for any orbital fracture. May apply ice pack to the affected area 20 minutes at a time 20 minutes on/20 minutes off Tylenol for pain as per bottle directions as discussed. Follow up with your PCP in 5-7 days if symptoms persist Go to the emergency room if you develop worsening symptoms-increase in pain, increase in swelling, worst headache of your life, neck pain, effusion, weakness, lethargy, difficulty swallowing, shortness of breath, or chest pain Patient Language: Bel[place]ian Prescriptions: No Action atorvastatin 20 mg tablet 20 mg PO QPM mirtazapine 15 mg tablet 15 mg PO Q12H pregabalin 75 mg capsule 75 mg PO albuterol sulfate 90 mcg/actuation HFA aerosol inhaler 2 puff inhalation Q4-6H PRN (Reason: shortness of breath or wheezing) 30 Days Qty: 8.5 0RF (DME) Space Chamber Spacer See Rx Instructions .ROUTE .MEDSUPPLY Qty: 1 0RF Rx Instructions: As directed ezetimibe 10 mg tablet Brilinta 60 mg tablet aspirin [Children's Aspirin] 81 mg Tablet,Chewable 81 mg PO DAILY@0800 Qty: 30 0RF metoprolol tartrate 25 mg tablet 25 mg PO BID sucralfate 100 mg/mL Suspension 1,000 mg PO ACHS Qty: 1000 0RF pantoprazole 40 mg Tablet,Delayed Release (Dr/Ec) 40 mg PO Q12HR Qty: 60 0RF Follow-up/Referrals: Zack,KATRINA Castillo [Primary Care Provider, Unknown] Time of Disposition: 19:59 Quality NIHSS Nursing Documentation ED NIHSS nursing documentation: reviewed/agree
== END 2025-03-16 20:03 | disposition home or self-care (01) ==
PROVIDERS: Emergency Provider Nurse Practitioner Family; PCP Nurse Practitioner Family
DX: S05.12XA Contusion of eyeball and orbital tissues, left eye, initial encounter (principal); W22.8XXA Striking against or struck by other objects, initial encounter; G44.311 Acute post-traumatic headache, intractable; F17.210 Nicotine dependence, cigarettes, uncomplicated; I10 Essential (primary) hypertension; E78.00 Pure hypercholesterolemia, unspecified; Z85.01 Personal history of malignant neoplasm of esophagus
CPT/HCPCS: 70200; 99213; G0463